=== PATIENT | female | born 1945 | race Caucasian/White ===

== ENCOUNTER → 2016-04-28 | Outpatient (CLI) | payer MEDICARE, BC ==
--- NOTE | 2016-04-28 12:44 | ECHOF ---
Referral Reason:I67.9 occult CVA MEASUREMENTS -------- HEIGHT: 162.6 cm WEIGHT: 74.8 kg BP: RVIDd: 2.8 cm (< 3.3) IVSd: 1.1 cm (0.6 - 1.1) LVIDd: 4.6 cm (3.9 - 5.3) LVPWd: 1.1 cm (0.6 - 1.1) IVSs: 1.1 cm LVIDs: 3.3 cm LVPWs: 1.3 cm LA Diam: 4.1 cm (2.7 - 3.8) LAESV Index (A-L): 24.43 ml/m Ao Diam: 3.2 cm (2.0 - 3.7) AV Cusp: 1.6 cm (1.5 - 2.6) LA Diam: 5.0 cm (2.7 - 3.8) MV EXCURSION: 15.965 mm (> 18.000) MV EF SLOPE: 46 mm/s (70 - 150) EPSS: 0.7 cm MV E Pramod: 0.41 m/s MV DecT: 265 ms MV A Pramod: 0.71 m/s MV E/A Ratio: 0.57 RAP: 5.00 mmHg RVSP: 15.52 mmHg FINDINGS -------- Sinus rhythm. This was a technically good study. LV size, wall thickness and systolic function are normal, with an EF greater than 55%. The right ventricle is normal in size. Normal LA size by volume 22+/-6 ml/m2. The right atrial size is normal. There is mild aortic valve sclerosis. There is no evidence of aortic regurgitation. Mild mitral annular calcification present. Mild mitral regurgitation is present. Mild tricuspid regurgitation present. There is no evidence of pulmonary hypertension. The right ventricular systolic pressure, as measured by Doppler, is 15.52mmHg. There is no pulmonic regurgitation present. The aortic root size is normal. There is no pericardial effusion. CONCLUSIONS -------- 1. LV size, wall thickness and systolic function are normal, with an EF greater than 55%. 2. There is mild aortic valve sclerosis. 3. Mild mitral annular calcification present. 4. Mild mitral regurgitation is present. 5. Mild tricuspid regurgitation present. 6. There is no evidence of pulmonary hypertension. 7. The right ventricular systolic pressure, as measured by Doppler, is 15.52mmHg. WAGON WINDER: Sarah Romo RDCS
== END | disposition home or self-care (01) ==
LOC: RADECHMAIN 11:13
PROVIDERS: ATTEND Family Medicine
DX: I35.0 Nonrheumatic aortic (valve) stenosis (principal); I38 Endocarditis, valve unspecified; I08.1 Rheumatic disorders of both mitral and tricuspid valves
CPT/HCPCS: 93306

== ENCOUNTER → 2016-05-08 | Outpatient (CLI) | payer MEDICARE, BC ==
[2016-05-08 08:13] LABS: Blood Urea Nitrogen 22 mg/dL (7-17); Non-African American GFR(MDRD) >60 (>60 ml/min/1.73 sqM)
--- NOTE | 2016-05-08 10:33 | MR ---
MR brain with and without contrast HISTORY: Brainstem stroke, dysphasia Multiplanar multisequence and postcontrast images obtained through the brain following 15 cc MultiHan ce IV. Correlation to CT brain 09 April 2016 There is no restricted diffusion to suggest subacute ischemia. There is no hemorrhage or hydrocephalu s. There are normal vascular flow voids. The cerebellopontine angles, corpus callosum, pituitary, cer vical medullary junction are stable. Orbits show a symmetric appearance with the exception of probabl e postop change to the right globe. Correlate for surgical history. No abnormal enhancement following contrast administration is evident. Scattered subcortical and periventricular hyperintensities are p resent on inversion recovery and T2-weighted sequences, approximately 10-20 lesions are present. Ther e is mild mucosal disease in the ethmoid air cells, maxillary sinus. IMPRESSION: Nonspecific white matter demyelination may be due to chronic small vessel ischemia. No ac [place] abnormality is evident.
[2016-05-08 21:57] LABS: ANA w/Reflex to Titer NEGATIVE (NEGATIVE)
== END | disposition home or self-care (01) ==
LOC: RADMRIMAIN 07:46
PROVIDERS: ATTEND Psychiatry & Neurology Neurology
DX: G37.9 Demyelinating disease of central nervous system, unspecified (principal); G70.1 Toxic myoneural disorders
CPT/HCPCS: 83519; 82565; 84520; 86431; 83516; 86038; 86225; 70553; A9577

== ENCOUNTER 2016-05-20 08:27 | Day surgery (SDC) | payer MEDICARE, BC ==
[2016-05-14 08:51] VITALS: BMI 30.2
[~2016-05-20 08:27] MED LIST: LACTATED RINGERS 1,000 ML IV SCH; LIDOCAINE 1% 20 ML VIAL (10MG/ML) FOR IV START INTRADERMA PRN
[2016-05-20 08:55] VITALS: RESP 18; TEMP 97.1
[2016-05-20] MEDS ORDERED: LIDOCAINE 1% 20 ML VIAL (10MG/ML) FOR IV START INTRADERMA ONE (09:02)
[2016-05-20] MEDS ORDERED: PROPOFOL 10 MG/ML 20 ML VIAL IV ONE (09:29)
[2016-05-20] MEDS ORDERED: LIDOCAINE 1% INJ 10MG/ML (20 ML MDV) ONE (09:29)
--- NOTE | 2016-05-20 09:39 | P.GSHP ---
History of Present Illness H&P Date: 05/20/16 Chief Complaint: Rectal bleeding Patient is had some recent rectal bleeding with straining of stools. Last colonoscopy 2012. Small polyp was found at that time. Past Medical History Past Medical History: Chest Pain / Angina, GERD/Reflux, Hyperlipidemia, Hypertension Additional Past Medical History / Comment(s): DIVERTICULOSIS, small hiatal hernia, cystocele with coil, PT STATES SHE HAS CHRONIC PAIN R FLANK AREA , INTERMITTENT TINGLING L HAND UP INTO L SHOULDER. History of Any Multi-Drug Resistant Organisms: None Reported Past Surgical History: Bladder Surgery, Cholecystectomy, Orthopedic Surgery, Tonsillectomy, Tubal Ligation Additional Past Surgical History / Comment(s): R eye surgery FOR RETINAL TEAR , R carpal tunnel release, BLADDER COIL BY IN THE OFFICE, EGD/colonoscopy. Past Anesthesia/Blood Transfusion Reactions: Previous Problems w/ Anesthesia Additional Past Anesthesia/Blood Transfusion Reaction / Comment(s): PT STATES THAT WHEN TEETH WERE REMOVED SHE DID HAVE SEVERE N/V BUT THINKS IT WAS GAS THAT WAS USED THAT CAUSED THIS. Past Psychological History: No Psychological Hx Reported Additional Psychological History / Comment(s): PT LIVES WITH SIGNIFICANT OTHER IN A HOME. 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 SHE DRIVES A CAR. Smoking Status: Never smoker Past Alcohol Use History: None Reported Past Drug Use History: None Reported - Past Family History Father Family Medical History: COPD Additional Family Medical History / Comment(s): FATHER IS AND PT UNSURE AT WHAT AGE HE . FATHER HAD ETOH ABUSE. Mother Family Medical History: Cancer, Coronary Artery Disease (CAD), Diabetes Mellitus Additional Family Medical History / Comment(s): MOTHER RECENTLY AT AGE 86YRS from CAD. HER CANCERS WERE OF THE BREAST AND THE BOWEL. Medications and Allergies Home Medications Medication Instructions Recorded Confirmed Type Aspirin 81 mg PO DAILY 10/28/13 05/14/16 History Atenolol [Tenormin] 50 mg PO DAILY 10/28/13 05/14/16 History Esomeprazole Magnesium [NexIUM] 40 mg PO DAILY 10/28/13 05/14/16 History Pravastatin Sodium [Pravachol] 20 mg PO Q48H 10/28/13 05/20/16 History Telmisartan/Hydrochlorothiazid 1 tab PO DAILY 10/28/13 05/14/16 History [Micardis Hct 80-25 mg Tablet] Multivitamins, Thera [Multivitamin] 1 tab PO DAILY 01/13/16 05/14/16 History Naproxen Sodium [Aleve] 220 - 440 mg PO Q6H PRN 01/13/16 05/20/16 History Tolterodine Tartrate [Detrol LA] 4 mg PO DAILY 01/13/16 05/14/16 History Allergies Allergy/AdvReac Type Severity Reaction Status Date / Time Penicillins Allergy Rash/Hives Verified 05/14/16 08:46 Surgical - Exam Vital Signs Temp Pulse Resp BP Pulse Ox 97.1 F L 84 18 112/73 93 L 05/20/16 08:54 05/20/16 08:54 05/20/16 08:54 05/20/16 08:54 05/20/16 08:54 Physical exam: General: Well-developed, well-nourished HEENT: Normocephalic, sclerae nonicteric Abdomen: Nontender, nondistended Extremities: No edema Neuro: Alert and oriented Assessment and Plan (1) Rectal bleeding Narrative/Plan: Will proceed with colonoscopy at this time. Status: Acute
--- NOTE | 2016-05-20 10:03 | P.PCN ---
Date of Procedure: 05/20/16 Procedure(s) Performed: PREOPERATIVE DIAGNOSIS: Rectal bleeding POSTOPERATIVE DIAGNOSIS: Ascending colon polyp 2, internal and external hemorrhoids, diverticulosis PROCEDURE: Colonoscopy with snare polypectomy ANESTHESIA: MAC SURGEON: Sarthak Alcocer M.D. SPECIMENS: Ascending colon polyp 2 ENDOSCOPIC PROCEDURE: The patient was placed on the endoscopy table in the left decubitus position. The Olympus colonoscope was inserted into the anus and passed under direct visualization to the base of the cecum. The appendiceal orifice was visualized. From that point the scope was slowly withdrawn inspecting all surfaces carefully. There were no neoplastic inflammatory or polypoid lesions throughout the cecum. In the ascending colon were 2 polyps that were both removed using the snare technique. The remainder of the transverse descending sigmoid and rectum were normal in appearance. There was mild left-sided diverticulosis. At the anus there were internal and external hemorrhoids noted without any evidence of recent or active bleeding. The patient was taken to the recovery room in stable condition per anesthesia guidelines. RECOMMENDATIONS: Await biopsy results. Increase fiber.
[2016-05-20 10:30] VITALS: BP 129/72; PULSE 60
== END 2016-05-20 10:48 | disposition home or self-care (01) ==
LOC: ORWHC2ENDO 08:27
PROVIDERS: ATTEND Surgery
DX: D12.2 Benign neoplasm of ascending colon (principal); K63.5 Polyp of colon; K57.30 Diverticulosis of large intestine without perforation or abscess without bleeding; K64.8 Other hemorrhoids; K64.4 Residual hemorrhoidal skin tags; K21.9 Gastro-esophageal reflux disease without esophagitis; E78.5 Hyperlipidemia, unspecified; I10 Essential (primary) hypertension; N39.3 Stress incontinence (female) (male); K44.9 Diaphragmatic hernia without obstruction or gangrene; Z79.82 Long term (current) use of aspirin; Z79.899 Other long term (current) drug therapy; Z88.0 Allergy status to penicillin
CPT/HCPCS: 88305; 45385; J2001; J2704; 99153

== ENCOUNTER 2016-08-01 10:50 | Emergency (ER) | payer MEDICARE, BC ==
[2016-08-01] MEDS ORDERED: HYDROcodone/APAP 7.5-325MG 1 EACH TAB PO ONE (11:13)
--- NOTE | 2016-08-01 11:16 | ED ---
Back Pain HPI - General Chief Complaint: Back Pain/Injury Stated Complaint: BACK, RT HIP PAIN Time Seen by Provider: 08/01/16 11:04 Source: patient - History of Present Illness Initial Comments: This 71-year-old white female presents complaining of some right lower back pain. She states that it initially occurred approximately 3 weeks ago but was much worse this morning. She is having difficulties with ambulation this morning. She states that the pain seems to radiate all the way down her right leg and into her foot. She had increased pain with attempts at ambulation. She eventually was able to a blade but it was somewhat difficult. She denies any previous known back problems. She has never had any workup in regards to her back. She denies any bowel or bladder abnormalities. She has not had any incontinence. She denies any frequency or urgency or dysuria. She denies any fevers or chills. There is no known trauma or overuse. No other complaints or modifying factors. She has only used occasional Tylenol over the past several weeks for the pain. - Related Data Home Medications Medication Instructions Recorded Confirmed Atenolol [Tenormin] 50 mg PO DAILY 10/28/13 08/01/16 Esomeprazole Magnesium [NexIUM] 40 mg PO DAILY PRN 10/28/13 08/01/16 Pravastatin Sodium [Pravachol] 20 mg PO Q48H 10/28/13 08/01/16 Telmisartan/Hydrochlorothiazid 1 tab PO DAILY 10/28/13 08/01/16 [Micardis Hct 80-25 mg Tablet] Multivitamins, Thera [Multivitamin 1 tab PO DAILY 01/13/16 08/01/16 (formulary)] Naproxen Sodium [Aleve] 220 - 440 mg PO Q6H PRN 01/13/16 08/01/16 Tolterodine Tartrate [Detrol LA] 4 mg PO DAILY 01/13/16 08/01/16 Allergies Allergy/AdvReac Type Severity Reaction Status Date / Time Penicillins Allergy Rash/Hives Verified 08/01/16 11:38 Review of Systems ROS Statement: Those systems with pertinent positive or pertinent negative responses have been documented in the HPI. ROS Other: All systems not noted in ROS Statement are negative. Past Medical History Past Medical History: GERD/Reflux, Hyperlipidemia, Hypertension Additional Past Medical History / Comment(s): DIVERTICULOSIS, small hiatal hernia, cystocele with coil, PT STATES SHE HAS CHRONIC PAIN R FLANK AREA , INTERMITTENT TINGLING L HAND UP INTO L SHOULDER. History of Any Multi-Drug Resistant Organisms: None Reported Past Surgical History: Bladder Surgery, Cholecystectomy, Orthopedic Surgery, Tonsillectomy, Tubal Ligation Additional Past Surgical History / Comment(s): R eye surgery FOR RETINAL TEAR , R carpal tunnel release, BLADDER COIL BY IN THE OFFICE, EGD/colonoscopy. Past Anesthesia/Blood Transfusion Reactions: Previous Problems w/ Anesthesia Additional Past Anesthesia/Blood Transfusion Reaction / Comment(s): PT STATES THAT WHEN TEETH WERE REMOVED SHE DID HAVE SEVERE N/V BUT THINKS IT WAS GAS THAT WAS USED THAT CAUSED THIS. Past Psychological History: No Psychological Hx Reported Additional Psychological History / Comment(s): PT LIVES WITH SIGNIFICANT OTHER IN A HOME. 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 SHE DRIVES A CAR. Smoking Status: Never smoker Past Alcohol Use History: None Reported Past Drug Use History: None Reported - Past Family History Father Family Medical History: COPD Additional Family Medical History / Comment(s): FATHER IS AND PT UNSURE AT WHAT AGE HE . FATHER HAD ETOH ABUSE. Mother Family Medical History: Cancer, Coronary Artery Disease (CAD), Diabetes Mellitus Additional Family Medical History / Comment(s): MOTHER RECENTLY AT AGE 86YRS from CAD. HER CANCERS WERE OF THE BREAST AND THE BOWEL. General Exam - General Exam Comments Initial Comments: GENERAL: The patient is well nourished and well hydrated. VITAL SIGNS: Heart rate, blood pressure, respiratory rate reviewed as recorded in nurse's notes. EYES: Pupils are round and reactive. Extraocular movements are intact. No conjunctival / lid redness or swelling. ENT: No external evidence of injury, swelling, or ecchymosis. Airway is patent. Throat is clear. NECK: Nontender. No swelling or evidence of injury. No subcutaneous emphysema. Trachea is midline. No thyroid mass. HEART: Regular rate and rhythm. Good peripheral pulses. LUNGS/CHEST: Breath sounds clear and equal bilaterally. No rales, rhonchi, or wheezes. No ecchymosis, subcutaneous emphysema, or tenderness. ABDOMEN: Abdomen soft without tenderness. No palpable masses or organomegaly. No peritoneal signs. No abdominal wall swelling or ecchymosis. EXTREMITIES: Normal muscle tone and function. No thoracic tenderness. There is tenderness present in the right paralumbar musculature. There is no tenderness directly over the vertebral 8. There is some tenderness present into the right gluteal region. There is some minimal tenderness present to the lateral aspect of the right calf. NEUROLOGIC: Sensation is grossly intact. Cranial nerve exam reveals face is symmetrical, tongue is midline, speech is clear. SKIN: No abrasions or ecchymosis is noted. No induration or masses noted. PSYCHIATRIC: Alert and oriented. Appropriate behavior and judgment. Course Vital Signs 08/01/16 08/01/16 10:52 11:57 Temperature 97.1 F L Pulse Rate 54 L 51 L Respiratory 17 16 Rate Blood Pressure 143/83 124/73 O2 Sat by Pulse 97 96 Oximetry Medical Decision Making - Medical Decision Making The patient was seen and examined. All diagnostics were reviewed. She received an [place] for pain. An x-ray was taken of her lumbar spine as well as AP pelvis. The x-rays show evidence of degenerative disc disease in the lower lumbar spine as well as some arthritic changes and osteopenia. She is feeling improved on recheck. Is felt as though she would benefit from an MRI scan of her lumbar spine on an outpatient basis. She will be given a dose of prednisone in the ER as well. She is to have close follow-up with her primary doctor and may even need further referral to a back specialist if symptoms persist. She does have a walker at home to utilize if necessary. Disposition Clinical Impression: Low back pain, Right lumbar radiculopathy, Degenerative disc disease, lumbar, Osteopenia Disposition: HOME SELF-CARE Condition: Good Instructions: Acute Low Back Pain (ED), Lumbar Radiculopathy (ED) Referrals: Chacorta Romero MD [Primary Care Provider] - 08/03/16 Time of Disposition: 12:52
--- NOTE | 2016-08-01 11:42 | XR ---
AP pelvis HISTORY: Low back pain going into right hip Correlation to left hip 17 June 2015 Multiple phleboliths are present within the pelvis. Bone island suspected within the right hemipelvis . Degenerative disc changes suspected at the lower lumbar spine. There is likely a pessary in place. Hip show no significant arthropathy, bone mineralization is maintained. IMPRESSION: Degenerative disc disease lower lumbar spine.
--- NOTE | 2016-08-01 11:44 | XR ---
Lumbar spine HISTORY: Low back pain radiating to right hip 3 views of the lumbar spine No comparisons There is minimal anterolisthesis grade 1 L4-5. Loss of disc height at L5-S1, L4-5. Sclerosis present in the posterior elements. Bone mineralization is mildly reduced. There is multilevel spondylosis. Va scular calcifications within the aorta are noted, surgical clips are present in the right upper quadr ant. Lumbar vertebral bodies show preserved height. IMPRESSION: Degenerative disc disease and facet arthropathy. Osteopenia.
[2016-08-01] MEDS ORDERED: predniSONE 20 MG TAB PO STA (12:52)
--- NOTE | 2016-08-01 12:54 | ED ---
Disposition Clinical Impression: Low back pain, Right lumbar radiculopathy, Degenerative disc disease, lumbar, Osteopenia Disposition: HOME SELF-CARE Condition: Good Instructions: Acute Low Back Pain (ED), Lumbar Radiculopathy (ED) Prescriptions: Hydrocodone/Acetaminophen [[place] 5-325] 1 - 2 each PO Q4HR PRN #20 tab PRN Reason: Pain predniSONE 20 mg PO BID #10 tab Referrals: Chacorta Romero MD [Primary Care Provider] - 08/03/16
[2016-08-01 13:02] VITALS: BP 107/69; PULSE 49; RESP 18; TEMP 98
== END 2016-08-01 13:03 | disposition home or self-care (01) ==
LOC: EC 10:50
DX: M51.16 Intervertebral disc disorders with radiculopathy, lumbar region (principal); M85.80 Other specified disorders of bone density and structure, unspecified site; I10 Essential (primary) hypertension; E78.5 Hyperlipidemia, unspecified; Z79.899 Other long term (current) drug therapy; Z88.0 Allergy status to penicillin
CPT/HCPCS: 99283; 72100; 72170; J7512

== ENCOUNTER → 2016-08-14 | Outpatient (CLI) | payer MEDICARE, BC ==
--- NOTE | 2016-08-14 13:13 | CT ---
EXAMINATION TYPE: CT chest wo con DATE OF EXAM: 08/14/2016 12:10 PM COMPARISON: 07/29/2015 HISTORY: 71 year-old female follow-up up to aneurysm TECHNIQUE: Contiguous axial scanning of the chest without IV contrast. Coronal and sagittal reconstru ctions performed. CT DLP: 210.8 mGycm Automated exposure control for dose reduction was used. FINDINGS: The heart is normal size without pericardial effusion. Ascending aorta measures up to 3.8 cm versus 3.7 cm on 07/29/2015 as remeasured by the current radiolo gist. This is not significantly changed. Mild Disregard calcifications with conventional arch vessel branching anatomy. The upper descending thoracic aorta is borderline aneurysmal measuring 3.1 cm versus 2.9 cm on 016. There is borderline to mildly enlarged caliber to the main right and left pulmonary arteries at 2.5 a nd 2.6 cm, respectively, which may represent underlying pulmonary arterial hypertension. Scattered nonenlarged mediastinal lymph nodes. No thoracic lymphadenopathy by CT size criteria. Evaluation of the lungs show some strandy atelectasis at the inferior lingula and superior lingula. N o consolidation or pleural effusion. Redemonstrated moderate-sized hiatal hernia. Visualized upper abdomen shows no gross abnormality by n oncontrast CT. Bones: Degenerative disc disease lower thoracic spine. IMPRESSION: 1. ECTATIC ASCENDING AORTA MEASURING 3.8 CM VERSUS 3.7 CM ON 07/29/2015 REMEASURED BY THE CURRENT R ADIOLOGIST. 2. 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 3. POSSIBLE UNDERLYING PULMONARY ARTERIAL HYPERTENSION. 4. REDEMONSTRATED MODERATE-SIZED HIATAL HERNIA.
== END ==
LOC: RADCTMAIN 11:37
PROVIDERS: ATTEND Thoracic Surgery (Cardiothoracic Vascular Surgery)
DX: I71.2 Thoracic aortic aneurysm, without rupture (principal)
CPT/HCPCS: 71250

== ENCOUNTER 2016-08-22 17:35 | Emergency (ER) | payer MEDICARE, BC ==
[2016-08-22 17:41] VITALS: BP 149/86; PULSE 74; RESP 20; TEMP 98.1
[2016-08-22] MEDS ORDERED: KETOROLAC 60 MG/2 ML VIAL IM STA (18:37)
[2016-08-22] MEDS ORDERED: methylPREDNISolone SOD SUCCI 125 MG/2 ML VIAL IM STA (18:37)
--- NOTE | 2016-08-22 18:37 | ED ---
Back Pain HPI - General Chief Complaint: Back Pain/Injury Stated Complaint: back and leg pain Time Seen by Provider: 08/22/16 17:57 Source: patient, RN notes reviewed Limitations: no limitations - History of Present Illness Initial Comments: 71-year-old female presents emergency room chief complaint of continued right leg pain and radiation of her back pain. Patient states she's had this for weeks. She states she's been to her family care doctor and they're currently waiting for her MRI. Patient states been taking Tylenol for the pain that has helped that she is sick of taking Tylenol and she wants something else. She does not want narcotics however. She states that she tried ice it to make it feel better she tries to move to make it feel better and is just constant. Patient states actually gets been for weeks. Patient states that she does not believe that she is tried steroids. However. There is was no falls traumas or injuries. Patient states that the same pain that she has had and she wanted to go away. Patient denies any recent fever, chills, shortness of breath, chest pain, back pain, abdominal pain, nausea vomiting, numbness or tingling, dysuria or hematuria, constipation or diarrhea, headaches or visual changes, or any other current symptoms. - Related Data Home Medications Medication Instructions Recorded Confirmed Atenolol [Tenormin] 50 mg PO DAILY 10/28/13 08/01/16 Esomeprazole Magnesium [NexIUM] 40 mg PO DAILY PRN 10/28/13 08/01/16 Pravastatin Sodium [Pravachol] 20 mg PO Q48H 10/28/13 08/01/16 Telmisartan/Hydrochlorothiazid 1 tab PO DAILY 10/28/13 08/01/16 [Micardis Hct 80-25 mg Tablet] Multivitamins, Thera [Multivitamin 1 tab PO DAILY 01/13/16 08/01/16 (formulary)] Naproxen Sodium [Aleve] 220 - 440 mg PO Q6H PRN 01/13/16 08/01/16 Tolterodine Tartrate [Detrol LA] 4 mg PO DAILY 01/13/16 08/01/16 Previous Rx's Medication Instructions Recorded Hydrocodone/Acetaminophen [[place] 1 - 2 each PO Q4HR PRN #20 tab 08/01/16 5-325] predniSONE 20 mg PO BID #10 tab 08/01/16 methylPREDNISolone Dose Pack 4 mg PO DIRECTED #21 package 08/22/16 [Medrol Dose Pack] Allergies Allergy/AdvReac Type Severity Reaction Status Date / Time Penicillins Allergy Rash/Hives Verified 08/22/16 17:41 Review of Systems ROS Statement: Those systems with pertinent positive or pertinent negative responses have been documented in the HPI. ROS Other: All systems not noted in ROS Statement are negative. Past Medical History Past Medical History: GERD/Reflux, Hyperlipidemia, Hypertension Additional Past Medical History / Comment(s): DIVERTICULOSIS, small hiatal hernia, cystocele with coil, PT STATES SHE HAS CHRONIC PAIN R FLANK AREA , INTERMITTENT TINGLING L HAND UP INTO L SHOULDER. History of Any Multi-Drug Resistant Organisms: None Reported Past Surgical History: Bladder Surgery, Cholecystectomy, Orthopedic Surgery, Tonsillectomy, Tubal Ligation Additional Past Surgical History / Comment(s): R eye surgery FOR RETINAL TEAR , R carpal tunnel release, BLADDER COIL BY IN THE OFFICE, EGD/colonoscopy. Past Anesthesia/Blood Transfusion Reactions: Previous Problems w/ Anesthesia Additional Past Anesthesia/Blood Transfusion Reaction / Comment(s): PT STATES THAT WHEN TEETH WERE REMOVED SHE DID HAVE SEVERE N/V BUT THINKS IT WAS GAS THAT WAS USED THAT CAUSED THIS. Past Psychological History: No Psychological Hx Reported Additional Psychological History / Comment(s): PT LIVES WITH SIGNIFICANT OTHER IN A HOME. 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 Smoking Status: Never smoker Past Alcohol Use History: None Reported Past Drug Use History: None Reported - Past Family History Father Family Medical History: COPD Additional Family Medical History / Comment(s): FATHER IS AND PT UNSURE AT WHAT AGE HE . FATHER HAD ETOH ABUSE. Mother Family Medical History: Cancer, Coronary Artery Disease (CAD), Diabetes Mellitus Additional Family Medical History / Comment(s): MOTHER RECENTLY AT AGE 86YRS from CAD. HER CANCERS WERE OF THE BREAST AND THE BOWEL. General Exam Limitations: no limitations General appearance: alert, in no apparent distress Head exam: Present: atraumatic, normocephalic, normal inspection ENT exam: Present: normal exam, mucous membranes moist Neck exam: Present: normal inspection. Absent: tenderness, meningismus, lymphadenopathy Respiratory exam: Present: normal lung sounds bilaterally. Absent: respiratory distress, wheezes, rales, rhonchi, stridor Cardiovascular Exam: Present: regular rate, normal rhythm, normal heart sounds. Absent: systolic murmur, diastolic murmur, rubs, gallop, clicks GI/Abdominal exam: Present: soft, normal bowel sounds. Absent: distended, tenderness, guarding, rebound, rigid Extremities exam: Present: normal inspection, full ROM, normal capillary refill. Absent: tenderness, pedal edema, joint swelling, calf tenderness Back exam: Present: normal inspection, full ROM. Absent: CVA tenderness (R), CVA tenderness (L), muscle spasm, paraspinal tenderness, vertebral tenderness, rash noted Expanded Back exam: Sciatic Notch Tenderness: Right, Positive Straight Leg Raise: Right Neurological exam: Present: alert, oriented X3, CN II-XII intact. Absent: motor sensory deficit Psychiatric exam: Present: normal affect, normal mood Skin exam: Present: warm, dry, intact, normal color. Absent: rash Course Vital Signs 08/22/16 17:39 Temperature 98.1 F Pulse Rate 74 Respiratory 20 Rate Blood Pressure 149/86 O2 Sat by Pulse 96 Oximetry Medical Decision Making - Medical Decision Making 71-year-old female presents for appears to be sciatica down the right leg. At this time we discussed we will put her on a Medrol Dosepak. We discussed follow -up for testing which is Wednesday. We discussed return parameters QUESTIONS. She stated that she understood and she is agreeable with the plan. This time she'll be discharged home. Disposition Clinical Impression: Degenerative disc disease, lumbar, Right lumbar radiculopathy, Sciatica, right side Disposition: HOME SELF-CARE Condition: Stable Instructions: Chronic Back Pain (ED), Sciatica (ED) Additional Instructions: Please use medication as discussed. Please follow up with family doctor if symptoms have not improved over the next two days. Please return to the emergency room if your symptoms increase or worsen or for any other concerns. Prescriptions: methylPREDNISolone Dose Pack [Medrol Dose Pack] 4 mg PO DIRECTED #21 package Referrals: Chacorta Romero MD [Primary Care Provider] - 1-2 days Time of Disposition: 18:36
== END 2016-08-22 19:16 | disposition home or self-care (01) ==
LOC: EC 17:35
DX: M51.16 Intervertebral disc disorders with radiculopathy, lumbar region (principal); E78.5 Hyperlipidemia, unspecified; I10 Essential (primary) hypertension; Z79.899 Other long term (current) drug therapy; Z88.0 Allergy status to penicillin
CPT/HCPCS: 99283; 96372 ×2; J2930; J1885

== ENCOUNTER → 2016-09-07 | Outpatient (CLI) | payer MEDICARE, BC ==
--- NOTE | 2016-09-08 12:51 | MM ---
Reason for exam: screening (asymptomatic). Last mammogram was performed 1 year ago. History: Patient is postmenopausal. Family history of breast cancer in aunt and breast cancer in cousin. Core biopsy of the right breast, 2007. Physical Findings: A clinical breast exam by your physician is recommended on an annual basis and results should be correlated with mammographic findings. MG 3D Screening Mammo W/Cad Bilateral CC and MLO view(s) were taken. Prior study comparison: September 06, 2015, bilateral MG 3d screening mammo w/cad. September 07, 2014, mammogram, performed at [facility]. August 11, 2013, mammogram, performed at [facility]. There are scattered fibroglandular densities. No significant changes when compared with prior studies. ASSESSMENT: Benign, BI-RAD 2 RECOMMENDATION: Routine screening mammogram of both breasts in 1 year.
== END ==
LOC: RADMAMWWP 09:37
PROVIDERS: ATTEND Obstetrics & Gynecology
DX: Z12.31 Encounter for screening mammogram for malignant neoplasm of breast (principal); Z80.3 Family history of malignant neoplasm of breast
CPT/HCPCS: 77063; G0202

== ENCOUNTER → 2016-09-07 | Outpatient (CLI) | payer MEDICARE, BC ==
--- NOTE | 2016-09-07 23:08 | MR ---
EXAMINATION TYPE: MR lumbar spine wo con DATE OF EXAM: 09/07/2016 7:57 PM COMPARISON: NONE HISTORY: Low back pain x6 months, cortisone injections 2-3 weeks ago TECHNIQUE: T1 and T2 axial and sagittal images of the lumbar spine are submitted. FINDINGS: There is no abnormal signal seen within the visualized spinal cord or paraspinal soft tissu es. Nonspecific subcentimeter nodularity to the right adrenal gland. Adenoma favored. Subcentimeter s imple right renal cyst noted. At T12-L1 no disc herniation or canal stenosis. No foraminal encroachment. At L1-2 there is no disc herniation or canal stenosis. No foraminal encroachment. Mild hypertrophy of the facets. At L2-3 there is no disc herniation or canal stenosis. No foraminal encroachment. Mild hypertrophic c hange of the facets. At L3-4 there is mild hypertrophic change of the facets and ligamentum flavum. No disc herniation. No Canal stenosis. Very mild circumferential disc bulging. No foraminal encroachment. At L4-5 there is grade 1 anterolisthesis with severe facet arthropathy. There is a focal central and right paracentral disc herniation with moderate effacement of thecal sac. Moderate bilateral foramina l encroachment. AP canal stenosis. At L5-S1 there is facet arthropathy. No foraminal encroachment or disc herniation. No Canal stenosis. IMPRESSION: 1. At L4-5 there is grade 1 anterolisthesis with severe facet arthropathy. There is a focal central a nd right paracentral disc herniation with moderate effacement of thecal sac. Moderate bilateral yola inal encroachment. AP canal stenosis. 2. Multilevel facet arthropathy. 3. Small right adrenal nodule indeterminate. Adrenal adenoma favored.
== END | disposition home or self-care (01) ==
LOC: RADMRIMAIN 19:17
PROVIDERS: ATTEND Nurse Practitioner Women's Health
DX: M48.06 Spinal stenosis, lumbar region (principal); M51.26 Other intervertebral disc displacement, lumbar region; M43.16 Spondylolisthesis, lumbar region; M46.96 Unspecified inflammatory spondylopathy, lumbar region
CPT/HCPCS: 72148

== ENCOUNTER → 2016-12-31 | Outpatient (CLI) | payer MEDICARE, BC ==
[2016-12-31 08:19] LABS: Bilirubin, Delta 0.1 mg/dL (0.0-0.2); Total Bilirubin 0.7 mg/dL (0.2-1.3); Total Protein 6.6 g/dL (6.3-8.2)
== END | disposition home or self-care (01) ==
LOC: LABWHC1 07:22
PROVIDERS: ATTEND Family Medicine
DX: E78.00 Pure hypercholesterolemia, unspecified (principal); I10 Essential (primary) hypertension
CPT/HCPCS: 36415; 80061; 80076

== ENCOUNTER → 2017-01-08 | Outpatient (CLI) | payer MEDICARE, BC ==
--- NOTE | 2017-01-08 16:57 | BD ---
EXAMINATION TYPE: MG DEXA axial skeleton. 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 History of Fracture in Adulthood: NO Secondary Osteoporosis: NO 1. Type 1 Diabetes: NO 2. Hyperthyroidism: NO 3. Menopause before 45: NO 4. Malnutrition: NO 5. Chronic liver disease: NO Rheumatoid Arthritis: NO Current Tobacco Use: NO RISK FACTORS HISTORY OF: Family History of Osteoporosis: NONE KNOWN Active: YES Diet low in dairy products/other sources of calcium: NO Postmenopausal woman: 51 YRS Hyperparathyroidism: NO Adrenal Insufficiency: NO MEDICATIONS: Additional Medications: BP MEDS, NEXIUM, STATINS FOR CHOLESTEROL, MULTIVITAMIN WITH CALCIUM AND D, D ETROL, LOW DOSE ASPIRIN Additional History: HYPERTENSION, HIGH CHOLESTEROL EXAM MEASUREMENTS: Bone mineral densitometry was performed using the [employer] System. Bone mineral density as measured about the Lumbar spine is: ----- L1-L4(G/cm2): 1.076 T Score Values are as follows: ----- L1: -1.5 ----- L2: -1.6 ----- L3: -0.7 ----- L4: -0.1 ----- L1-L4: -0.9 Bone mineral density THIS IS HER FIRST BONE DENSITY SCAN AT [facility] Bone mineral density about the R hip (g/cm2): 0.898 Bone mineral density about the L hip (g/cm2): 0.933 T Score values are as follows: -----R Neck: -1.3 -----L Neck: -0.8 -----R Total: -0.9 -----L Total: -0.6 Bone mineral density FIRST BONE DENSITY HERE AT [facility] FRAX%'S: THERE IS A 9.7% CHANCE OF A MAJOR OSTEOPOROTIC FX AND A 1.3% OF HIP FX.....PROBABILITY OF FX IN 10 YRS TIME IMPRESSION: Osteopenia (T Score between -2.5 and -1 as noted by T score values There is slightly increased risk of fracture and the patient may be considered for treatment. Re-Screen 2-5 years. FOR HER RT HIP AND LUMBAR SPINE. NOTE: T-SCORE=SD OF THE YOUNG ADULT MEAN.
== END | disposition home or self-care (01) ==
LOC: RADBDWWP 07:28
PROVIDERS: ATTEND Family Medicine
DX: M85.89 Other specified disorders of bone density and structure, multiple sites (principal); Z79.82 Long term (current) use of aspirin
CPT/HCPCS: 77080

== ENCOUNTER 2017-05-25 06:48 | Day surgery (SDC) | payer MEDICARE, BC ==
[2017-05-17 14:59] VITALS: BMI 25.1
[~2017-05-25 06:48] MED LIST changes: +DEXAMETHASONE SOD PHOSPHATE 10 MG/ML 1 ML VIAL IV ONE; +HEPARIN SODIUM,PORCINE 5,000 UNIT/ML 1 ML VIAL SQ ONE; +ONDANSETRON 4 MG/2 ML VIAL IVP ONE; +ceFAZolin IN SWFI 2 GM/20 ML SYRINGE IVP ONE
[2017-05-25] MEDS ORDERED: LACTATED RINGERS 1,000 ML IV ONE ×2 (07:27→09:41)
--- NOTE | 2017-05-25 07:56 | P.GSHP ---
History of Present Illness H&P Date: 05/25/17 Chief Complaint: left inguinal hernia this a 71-year-old female for from Dr. Romero. Patient developed a left inguinal hernia. She presents today for laparoscopic robotic system repair. Past Medical History Past Medical History: GERD/Reflux, Hyperlipidemia, Hypertension Additional Past Medical History / Comment(s): cystocele with coil, hx migraines , hx ulcer, urinary leakage History of Any Multi-Drug Resistant Organisms: None Reported Past Surgical History: Bladder Surgery, Cholecystectomy, Orthopedic Surgery, Tonsillectomy, Tubal Ligation Additional Past Surgical History / Comment(s): R eye surgery FOR RETINAL TEAR , Rt carpal tunnel release, BLADDER COIL Past Anesthesia/Blood Transfusion Reactions: Motion Sickness, Postoperative Nausea & Vomiting (PONV) Additional Past Anesthesia/Blood Transfusion Reaction / Comment(s): . Smoking Status: Never smoker - Past Family History Brother(s) Family Medical History: Cancer Father Family Medical History: COPD Additional Family Medical History / Comment(s): FATHER IS AND PT UNSURE AT WHAT AGE HE . FATHER HAD ETOH ABUSE. Mother Family Medical History: Cancer Additional Family Medical History / Comment(s): MOTHER RECENTLY AT AGE 86YRS from CAD. HER CANCERS WERE OF THE BREAST AND THE BOWEL. Medications and Allergies Home Medications Medication Instructions Recorded Confirmed Type Atenolol [Tenormin] 50 mg PO DAILY 10/28/13 05/17/17 History Esomeprazole Magnesium [NexIUM] 40 mg PO DAILY 10/28/13 05/17/17 History Pravastatin Sodium [Pravachol] 20 mg PO Q48H 10/28/13 05/17/17 History Telmisartan/Hydrochlorothiazid 1 tab PO DAILY 10/28/13 05/17/17 History [Micardis Hct 80-25 mg Tablet] Multivitamins, Thera [Multivitamin 1 tab PO DAILY 01/13/16 05/17/17 History (formulary)] Naproxen Sodium [Aleve] 220 - 440 mg PO Q6H PRN 01/13/16 05/17/17 History Tolterodine Tartrate [Detrol LA] 4 mg PO DAILY 01/13/16 05/17/17 History Aspirin [Adult Low Dose Aspirin EC] 81 mg PO DAILY 05/17/17 05/17/17 History Allergies Allergy/AdvReac Type Severity Reaction Status Date / Time Penicillins Allergy Rash/Hives Verified 05/17/17 14:45 Surgical - Exam Vital Signs Temp Pulse Resp BP Pulse Ox 98.1 F 54 L 18 164/81 96 05/25/17 07:09 05/25/17 07:09 05/25/17 07:09 05/25/17 07:09 05/25/17 07:09 - General well developed, no distress - Eyes PERRL - ENT normal pinna - Neck no masses - Respiratory normal expansion - Cardiovascular Rhythm: regular - Abdomen Abdomen: soft, non tender Hernia: inguinal (left, reducible) Assessment and Plan Plan: left inguinal hernia. We'll perform laparoscopic robotic system repair.
[2017-05-25] MEDS ORDERED: GLYCOPYRROLATE 0.2 MG/ML 2 ML VIAL ONE (07:59)
[2017-05-25] MEDS ORDERED: fentaNYL (PF) 50 MCG/ML 2 ML AMP ONE (07:59)
[2017-05-25] MEDS ORDERED: ROCURONIUM BROMIDE 10 MG/ML 10 ML VIAL IV ONE (07:59)
[2017-05-25] MEDS ORDERED: SUCCINYLCHOLINE CHLORIDE 100 MG/5 ML SYR IV ONE (07:59)
[2017-05-25] MEDS ORDERED: ePHEDrine SULFATE/0.9% NACL/PF 50 MG/5 ML SYRINGE IV ONE (07:59)
[2017-05-25] MEDS ORDERED: MIDAZOLAM 2 MG/2 ML VIAL ONE (07:59)
[2017-05-25] MEDS ORDERED: PROPOFOL 10 MG/ML 20 ML VIAL IV ONE (07:59)
[2017-05-25] MEDS ORDERED: LIDOCAINE 1% INJ 10MG/ML (20 ML MDV) ONE (07:59)
[2017-05-25] MEDS ORDERED: NEOSTIGMINE 1 MG/ML 10 ML VIAL ONE (07:59)
[2017-05-25] MEDS ORDERED: BUPIVACAINE (PF) 0.25% 30 ML VIAL SQ ONE ×2 (08:18→08:22)
[2017-05-25 09:09] VITALS: TEMP 97.2
[2017-05-25] MEDS: HYDROmorphone 0.5 MG/0.5 ML SYRINGE IVP PRN ×2 (09:14→09:19)
[2017-05-25 09:18] VITALS: RESP 16
[2017-05-25] MEDS ORDERED: ONDANSETRON 4 MG/2 ML VIAL IVP ONE (09:27)
[2017-05-25] MEDS ORDERED: METOCLOPRAMIDE 5 MG/ML 2 ML VIAL IVP ONE (11:29)
[2017-05-25 11:48] VITALS: PULSE 51
[2017-05-25] MEDS ORDERED: HYDROcodone/APAP 7.5-325MG 1 EACH TAB PO ONE (12:19)
[2017-05-25 12:24] VITALS: BP 135/81
--- NOTE | 2017-05-25 13:31 | P.OP ---
Date of Procedure: 05/25/17 Preoperative Diagnosis: Left inguinal hernia Postoperative Diagnosis: Left inguinal hernia Umbilical hernia Procedure(s) Performed: Laparoscopic robotic-assisted repair of left inguinal hernia and umbilical hernia. Anesthesia: MAC Surgeon: Ac Meng Estimated Blood Loss (ml): 5 Pathology: none sent Condition: stable Disposition: PACU Description of Procedure: he patient's placed on the operating table in the supine position. The patient received general anesthesia. The patient's abdomen was prepped and draped in usual sterile fashion. The skin was anesthetized 1% local Xylocaine at the incision sites. Using an 11 blade a skin incision was made at the umbilicus. The fascia was grasped with a Nathan and then the peritoneal cavity was entered with the Veress needle. Position of the Veress needle was confirmed with a positive drop test. After adequate insufflation a 5 mm trocar was placed into the peritoneal cavity. There is noted to be an umbilical hernia. The Laparoscope was placed the peritoneal cavity. And a robotic 8 mm trocar was placed in the right lateral position and then another 8 mm robotic trochars placed in the left lateral position. The original 5 mm trocar was exchanged for a 12 mm trocar. The patient was placed in reverse Trendelenburg and then the patient was docked to the robot. Next the peritoneum over top of the hernia was incised and then using blunt and sharp dissection and electrocautery the hernia sac was dissected free from the floor of the inguinal canal. The hernia sac was completely reduced into the peritoneal cavity. And then using the [employer] attendant mesh the hernia was repaired. The peritoneum was then sutured with 20V lock suture. The patient was then undocked the robot. The needle was withdrawn from the peritoneal cavity. The umbilical trocar hernia site was closed with 0 Ethibond suture. The skin was closed interrupted 3-0 Monocryl suture. Dermabond dressing was applied. Patient was sent to recovery in stable condition.
== END 2017-05-25 12:58 | disposition home or self-care (01) ==
LOC: OR 06:48
PROVIDERS: ATTEND Surgery
DX: K40.90 Unilateral inguinal hernia, without obstruction or gangrene, not specified as recurrent (principal); K42.9 Umbilical hernia without obstruction or gangrene; I10 Essential (primary) hypertension; E78.5 Hyperlipidemia, unspecified; R00.1 Bradycardia, unspecified; K21.9 Gastro-esophageal reflux disease without esophagitis; E78.00 Pure hypercholesterolemia, unspecified; Z79.82 Long term (current) use of aspirin; Z79.899 Other long term (current) drug therapy; Z90.49 Acquired absence of other specified parts of digestive tract; Z88.0 Allergy status to penicillin; Z86.69 Personal history of other diseases of the nervous system and sense organs
CPT/HCPCS: 49650; 49652; C1781; J2250; J1100; J2710; J2765; J2405; J2001; J3010; J0330; J2704; J1170; J0690

== ENCOUNTER 2017-09-14 19:44 | Observation (INO) | payer MEDICARE, BC ==
[2017-09-14] MEDS ORDERED: SODIUM CHLORIDE 0.9% 1,000 ML IV STA ×2 (19:55→20:54)
[2017-09-14] MEDS ORDERED: NITROGLYCERIN SL TABS 0.4 MG TAB SUBLINGUAL STA (19:56)
--- NOTE | 2017-09-14 20:12 | ED ---
Nausea/Vomiting/Diarrhea HPI - General Chief complaint: Nausea/Vomiting/Diarrhea Stated complaint: nausea/vomiting Time Seen by Provider: 09/14/17 19:44 Source: patient, RN notes reviewed Mode of arrival: EMS Limitations: no limitations - History of Present Illness Initial comments: This is a 72-year-old female who presents by EMS with complaints of nausea vomiting and diarrhea started around 4 PM this afternoon. She also states she' s had some anterior chest heaviness 3-4/10 severity she states the nausea is improved somewhat and the chest heaviness is improved she states is somewhat dull now. No prior history of IA or known coronary artery disease no known exposure to bad food or to other people with similar symptoms. She has any fevers chills sweats no cough or phlegm production no other modifying factors at this time she does relate that she's had her gallbladder taken out. MD complaint: nausea, vomiting, diarrhea, other - Related Data Home Medications Medication Instructions Recorded Confirmed Atenolol [Tenormin] 25 mg PO DAILY 10/28/13 09/14/17 Pravastatin Sodium [Pravachol] 20 mg PO Q48H 10/28/13 09/14/17 Telmisartan/Hydrochlorothiazid 1 tab PO DAILY 10/28/13 09/14/17 [Micardis Hct 80-25 mg Tablet] Multivitamins, Thera [Multivitamin 1 tab PO DAILY 01/13/16 09/14/17 (formulary)] Tolterodine Tartrate [Detrol LA] 4 mg PO DAILY 01/13/16 09/14/17 Aspirin [Adult Low Dose Aspirin EC] 81 mg PO DAILY 05/17/17 09/14/17 Esomeprazole Magnesium [NexIUM 20 mg PO DAILY 09/14/17 09/14/17 24Hr] Allergies Allergy/AdvReac Type Severity Reaction Status Date / Time Penicillins Allergy Rash/Hives Verified 09/14/17 20:07 Review of Systems ROS Statement: Those systems with pertinent positive or pertinent negative responses have been documented in the HPI. ROS Other: All systems not noted in ROS Statement are negative. Past Medical History Past Medical History: GERD/Reflux, Hyperlipidemia, Hypertension Additional Past Medical History / Comment(s): cystocele with coil, hx migraines , hx ulcer, urinary leakage History of Any Multi-Drug Resistant Organisms: None Reported Past Surgical History: Bladder Surgery, Cholecystectomy, Orthopedic Surgery, Tonsillectomy, Tubal Ligation Additional Past Surgical History / Comment(s): R eye surgery FOR RETINAL TEAR , Rt carpal tunnel release, BLADDER COIL Past Anesthesia/Blood Transfusion Reactions: Motion Sickness, Postoperative Nausea & Vomiting (PONV) Additional Past Anesthesia/Blood Transfusion Reaction / Comment(s): . Past Psychological History: No Psychological Hx Reported Smoking Status: Never smoker - Past Family History Brother(s) Family Medical History: Cancer Father Family Medical History: COPD Additional Family Medical History / Comment(s): FATHER IS AND PT UNSURE AT WHAT AGE HE . FATHER HAD ETOH ABUSE. Mother Family Medical History: Cancer Additional Family Medical History / Comment(s): MOTHER RECENTLY AT AGE 86YRS from CAD. HER CANCERS WERE OF THE BREAST AND THE BOWEL. General Exam - General Exam Comments Initial Comments: This is a well-developed well-nourished awake alert oriented 3 female Limitations: no limitations General appearance: alert, anxious Head exam: Present: atraumatic, normocephalic, normal inspection Eye exam: Present: normal appearance, PERRL, EOMI. Absent: scleral icterus, conjunctival injection, periorbital swelling ENT exam: Present: mucous membranes dry Neck exam: Present: normal inspection. Absent: tenderness, meningismus, lymphadenopathy Respiratory exam: Present: normal lung sounds bilaterally. Absent: respiratory distress, wheezes, rales, rhonchi, stridor Cardiovascular Exam: Present: regular rate, normal rhythm, normal heart sounds. Absent: systolic murmur, diastolic murmur, rubs, gallop, clicks GI/Abdominal exam: Present: soft, normal bowel sounds. Absent: distended, tenderness, guarding, rebound, rigid Extremities exam: Present: normal inspection, full ROM, normal capillary refill. Absent: tenderness, pedal edema, joint swelling, calf tenderness Back exam: Present: normal inspection Neurological exam: Present: alert, oriented X3, CN II-XII intact Psychiatric exam: Present: normal affect, normal mood Skin exam: Present: warm, dry, intact, normal color. Absent: rash Course Vital Signs 09/14/17 09/14/17 09/14/17 19:48 20:52 21:13 Temperature 97.9 F Pulse Rate 63 57 L 61 Respiratory 20 20 20 Rate Blood Pressure 130/58 116/55 106/56 O2 Sat by Pulse 96 96 95 Oximetry - Reevaluation(s) Reevaluation #1: 09/14/17 20:11 Sec and attempted EKG interpretation the rate was 63. Interval 188 QRS 98 QT cyst QTc 420/431 minimal voltage criteria for LVH nonspecific ST configuration this is compared with an EKG dated 02/12/16 Reevaluation #2: 09/14/17 21:06 Reevaluation patient reveals she did get improvement in the chest pain has resolved after nitroglycerin. She did have an episode of passing out or X-RAY. SHE WAS GIVEN FLUID CHALLENGE WITH SOME IMPROVEMENT. Medical Decision Making - Medical Decision Making I did reevaluate the patient did discuss [employer] her and her family members. Patient is currently pain-free still some nausea. She will be admitted with consultation to cardiology I did discuss case with Dr. Lopez - Lab Data Result diagrams: 09/14/17 20:04 09/14/17 20:04 Lab Results 09/14/17 09/14/17 09/14/17 Range/Units 20:04 20:04 20:04 WBC 12.7 H (3.8-10.6) k/uL RBC 4.67 (3.80-5.40) m/uL Hgb 13.5 (11.4-16.0) gm/dL Hct 39.2 (34.0-46.0) % MCV 84.0 (80.0-100.0) fL MCH 28.9 (25.0-35.0) pg MCHC 34.4 (31.0-37.0) g/dL RDW 13.3 (11.5-15.5) % Plt Count 259 (150-450) k/uL Neutrophils % 86 % Lymphocytes % 7 % Monocytes % 5 % Eosinophils % 1 % Basophils % 0 % Neutrophils # 10.9 H (1.3-7.7) k/uL Lymphocytes # 0.9 L (1.0-4.8) k/uL Monocytes # 0.6 (0-1.0) k/uL Eosinophils # 0.1 (0-0.7) k/uL Basophils # 0.0 (0-0.2) k/uL Sodium 139 (137-145) mmol/L Potassium 3.5 (3.5-5.1) mmol/L Chloride 102 (98-107) mmol/L Carbon Dioxide 24 (22-30) mmol/L Anion Gap 13 mmol/L BUN 18 H (7-17) mg/dL Creatinine 0.75 (0.52-1.04) mg/dL Est GFR (CKD-EPI)AfAm >90 (>60 ml/min/1.73 sqM) Est GFR (CKD-EPI)NonAf 80 (>60 ml/min/1.73 sqM) Glucose 113 H (74-99) mg/dL Calcium 9.8 (8.4-10.2) mg/dL Magnesium 1.7 (1.6-2.3) mg/dL Total Bilirubin 0.7 (0.2-1.3) mg/dL AST 20 (14-36) U/L ALT 38 (9-52) U/L Alkaline Phosphatase 99 (38-126) U/L Total Creatine Kinase 138 H (30-135) U/L Total Protein 6.7 (6.3-8.2) g/dL Albumin 4.3 (3.5-5.0) g/dL Amylase 60 (30-110) U/L Lipase 77 (23-300) U/L - EKG Data -: EKG Interpreted by Me (EKG shows a sinus rhythm of 63. Interval 188 QRS duration 98 ) EKG shows normal: sinus rhythm - Radiology Data Radiology results: report reviewed (I did review the imaging and report or is some evidence of increased pulmonary vascular congestion.), image reviewed Critical Care Time Critical Care Time: Yes Critical Care Time: 31 minutes of critical care time which includes initial presentation and discussed with paramedics and review of reporting. History physical labs x- rays several reevaluation the patient discussed with patient family regarding the findings charting was available. Discussion with the admitting physician admission orders and documentation of the above Disposition Clinical Impression: Unstable angina, Gastroenteritis, Dehydration Disposition: ADMITTED IP TO THIS [facility] Condition: Stable Referrals: Chacorta Romero MD [Primary Care Provider] - 1-2 days
[2017-09-14 20:15] LABS: Basophils % (A) 0 %; Eosinophils # (A) 0.1 k/uL (0-0.7); Eosinophils % (A) 1 %; HCT 39.2 % (34.0-46.0); HGB 13.5 gm/dL (11.4-16.0); Lymphocytes # (A) 0.9 k/uL (1.0-4.8); Lymphocytes % (A) 7 %; MCH 28.9 pg (25.0-35.0); MCHC 34.4 g/dL (31.0-37.0); Mean Platelet Volume 6.8; Monocytes # (A) 0.6 k/uL (0-1.0); Monocytes % (A) 5 %; Neutrophils # (A) 10.9 k/uL (1.3-7.7); Neutrophils % (A) 86 %; Platelet Count 259 k/uL (150-450); RBC 4.67 m/uL (3.80-5.40); RDW 13.3 % (11.5-15.5); WBC 12.7 k/uL (3.8-10.6)
[2017-09-14 20:37] LABS: ALT 38 U/L (9-52); AST 20 U/L (14-36); Albumin 4.3 g/dL (3.5-5.0); Alkaline Phosphatase 99 U/L (38-126); Amylase 60 U/L (30-110); Anion Gap 13 mmol/L; Blood Urea Nitrogen 18 mg/dL (7-17); Calcium 9.8 mg/dL (8.4-10.2); Carbon Dioxide 24 mmol/L (22-30); Chloride 102 mmol/L (98-107); Glucose 113 mg/dL (74-99); Lipase 77 U/L (23-300); Magnesium 1.7 mg/dL (1.6-2.3); Potassium 3.5 mmol/L (3.5-5.1); Sodium 139 mmol/L (137-145); Total Bilirubin 0.7 mg/dL (0.2-1.3); Total Protein 6.7 g/dL (6.3-8.2)
[2017-09-14 21:00] LABS: Creatine Kinase 138 U/L (30-135)
--- NOTE | 2017-09-14 21:03 | XR ---
EXAMINATION TYPE: XR chest 2V DATE OF EXAM: 09/14/2017 COMPARISON: Chest CT 08/14/2016 HISTORY: Pain TECHNIQUE: Frontal and lateral views of the chest are obtained. FINDINGS: The heart is enlarged. Patient is rotated which may accentuate appearance. Lung volumes ar e low. Central vascularity and interstitium are increased. No evident pneumothorax or pleural effusio n. There are overlying cardiac leads. Patient's hiatal hernia and thoracic aortic aneurysm not well s een. IMPRESSION: Correlate for pulmonary venous hypertension and interstitial edema. Follow-up suggested.
--- NOTE | 2017-09-14 21:05 | XR ---
Abdomen HISTORY: Pain, nausea vomiting and diarrhea Frontal view of the abdomen submitted on 2 images and correlated prior exam 10/22/2014, CT pelvis 2015 Multiple calcifications are again noted within the pelvis are phleboliths. There is no evident bowel obstruction or pneumoperitoneum. Surgical clips present in the right upper quadrant. Lung bases are c lear. There are overlying cardiac leads. Pessary is in place. IMPRESSION: Nonobstructive bowel gas pattern.
[2017-09-14] MEDS ORDERED: NITROGLYCERIN SL TABS 0.4 MG TAB SUBLINGUAL PRN (21:16)
[2017-09-14] MEDS ORDERED: HEPARIN SODIUM,PORCINE 5,000 UNIT/ML 1 ML VIAL IV ONE (21:16)
[2017-09-14] MEDS ORDERED: ONDANSETRON 4 MG/2 ML VIAL IVP PRN (21:19)
[2017-09-14 21:20] LABS: Troponin I <0.012 ng/mL (0.000-0.034)
[2017-09-14 21:30] LABS: Creatine Kinase MB 2.7 ng/mL (0.0-2.4)
[2017-09-14] MEDS ORDERED: SODIUM CHLORIDE 0.9% 1,000 ML IV SCH (21:30)
[2017-09-14] MEDS ORDERED: HEPARIN SODIUM,PORCINE/D5W PMX 25,000 UNIT in DEXTROSE/WATER 1 500ML.BAG IV SCH (21:30)
[2017-09-14 22:36] VITALS: BMI 26.5
[2017-09-15 03:07] LABS: Appearance,Urine Clear (Clear); Bacteria,Urine Few /hpf; Bilirubin,Urine Negative (Negative); Blood,Urine Negative (Negative); Color,Urine Yellow; Glucose,Urine (UA) Negative (Negative); Hyaline Casts,Urine 11 /lpf (0-2); Ketones,Urine Trace (Negative); Leukocyte Esterase,Urine Trace (Negative); Mucus,Urine Rare /hpf; Nitrite,Urine Negative (Negative); PH, Urine 5.5 (5.0-8.0); Protein,Urine Negative (Negative); RBC,Urine <1 /hpf (0-5); Specific Gravity,Urine 1.015 (1.001-1.035); Squamous Epithelial Cell,Urine 2 /hpf (0-4); Urobilinogen,Urine <2.0 mg/dL (<2.0); WBC,Urine 2 /hpf (0-5)
[2017-09-15 04:32] LABS: Cholesterol 200 mg/dL (<200); HDL Cholesterol 35 mg/dL (40-60); LDL Cholesterol,Calculated 142 mg/dL (0-99); Triglycerides 117 mg/dL (<150)
[2017-09-15 04:40] LABS: Creatine Kinase 106 U/L (30-135)
[2017-09-15 04:53] LABS: Creatine Kinase MB 2.1 ng/mL (0.0-2.4); Troponin I <0.012 ng/mL (0.000-0.034)
[2017-09-15] MEDS ORDERED: PANTOPRAZOLE 40 MG TABLET PO SCH (07:30)
[2017-09-15 08:22] VITALS: RESP 18
[2017-09-15] MEDS ORDERED: HYDROCHLOROTHIAZIDE 25 MG TAB PO SCH (09:00)
[2017-09-15] MEDS ORDERED: ASPIRIN 81 MG PO SCH (09:00)
[2017-09-15] MEDS ORDERED: ASPIRIN 325 MG TAB PO SCH (09:00)
[2017-09-15] MEDS ORDERED: OXYBUTYNIN XL 5 MG TAB.ER.24 PO SCH (09:00)
[2017-09-15] MEDS ORDERED: LOSARTAN 50 MG TAB PO SCH (09:00)
[2017-09-15] MEDS ORDERED: ATENOLOL 25 MG TAB PO SCH (09:00)
--- NOTE | 2017-09-15 09:37 | CONS ---
CONSULTATION Attending doctor is Dr. Romero. Mrs. Machado is a 72-year-old female with known history of hypertension, hyperlipidemia, who presented to the hospital with nausea and vomiting and diarrhea. She has been having some episodes of chest discomfort on and off for a while and unrelated to any physical activity. She has been followed by Dr. Glover on a regular basis and had no prior history of obstructive coronary artery disease. She has underwent a stress test and echocardiogram in April of this year, but the results are not available to me at this point. The patient is active physically, has no exertional chest pain. She has no exertional dyspnea. She has occasional ankle edema. No clear PND or orthopnea. She felt dizzy yesterday with the nausea and vomiting and she bumped her head but she had no palpitations. Her coronary risk factors are remarkable for hypertension, hyperlipidemia. She is a nonsmoker, nondiabetic. MEDICATIONS: Current medications include Nexium, Detrol LA, Micardis HCT 80/25 mg daily, pravastatin 20 mg q.48 hours, Tenormin 25 mg daily and aspirin once a day. REVIEW OF SYSTEMS: RESPIRATORY SYSTEM: She has no documented history of obstructive lung disease. No significant cough or fever. GI SYSTEM: She had nausea and vomiting and diarrhea. She had no GI bleeding. SYSTEM: No dysuria or hematuria. NERVOUS SYSTEM: No stroke or seizure. PHYSICAL EXAMINATION: This is a 72-year-old female, alert, oriented, in no apparent distress. Blood pressure running in the high 90s with the heart rate in the 60s. HEAD: Normocephalic. EYES: Sclerae anicteric. NECK: Good upstroke. No bruit. No jugular venous distention. LUNGS: Clear to auscultation. HEART: Regular rate and rhythm. S1, S2. No S3 with systolic murmur ejection type heard at the base. No diastolic murmur. No rub. ABDOMEN: Soft. Mild tenderness. Positive bowel sounds. No organomegaly. EXTREMITIES: No edema. Intact distal pulses. LAB DATA: Lab data revealed troponin less than 0.012 for 2 samples. Cholesterol 200, LDL 142. BUN and creatinine of 18 and 0.75. Hemoglobin of 13.5. White blood cell of 12.7. EKG revealed a sinus mechanism, normal axis and intervals with T-wave inversion anteriorly. Chest x-ray raised the question of congestion. Abdominal x-ray was unremarkable. IMPRESSION: 1. Nausea, vomiting, and diarrhea suggestive of antral gastritis. 2. Chest discomfort, atypical for ischemic heart disease, probably noncardiac. 3. Hypertension. 4. Hyperlipidemia. RECOMMENDATION: The patient at this time is hypotensive. I will stop her hydrochlorothiazide and adjust her antihypertensive regimen. I would review the results of her echocardiogram and stress test that were done in April. Her EKG changes are not new, they were noted in 2015. From the cardiac standpoint, I see no evidence of active cardiac issues. If she remains stable, I would expect she should be able to be discharged home soon and follow as an outpatient with Dr. Glover. Thank you for this consult. We will follow with you. GATOL / IJN: [id number] /
[2017-09-15 09:41] LABS: Creatine Kinase 94 U/L (30-135)
[2017-09-15 09:51] LABS: Creatine Kinase MB 1.6 ng/mL (0.0-2.4); Troponin I <0.012 ng/mL (0.000-0.034)
[2017-09-15 11:39] VITALS: BP 108/63; PULSE 76; TEMP 98
[2017-09-15] MEDS ORDERED: MULTIVITAMINS, THERA 1 EACH TAB PO SCH (12:00)
--- NOTE | 2017-09-15 16:12 | P.HPIM ---
History of Present Illness H&P Date: 09/15/17 Chief Complaint: chest discomfort, N/V 72-year-old female who presented to the emergency room with a chief complaint of nausea, vomiting, and diarrhea x 1 day in duration. Patient states symptoms began after she ate a yogurt at home. Patient reported chest heaviness intermittent over the past week. She denied shortness of breath. Denied cough or sputum production. Denies fever or chills. Apparently, the patient felt dizzy at home yesterday and fell. She has a small abrasion on her forehead that resulted from her fall. The patient has a history of hyperlipidemia, hypertension, GERD, AAA, and migranes. Chest x-ray: Correlate for pulmonary venous hypertension and interstitial edema. KUB x-ray: No evidence of bowel obstruction or pneumoperitoneum. Nonobstructive bowel gas pattern. Laboratory data: WBC 12.7. Hemoglobin 13.5. Platelet count 259. Sodium 139. Potassium 3.5. BUN 18. Creatinine 0.75. Glucose 113. Magnesium 1.7. LFTs and pancreatic enzymes within normal limits Troponins negative 3 Lipid panel: triglycerides 117, cholesterol 200, LDL 142, HDL 35 Urinalysis reveals: trace ketones, trace leukocyte esterase, few bacteria, 11 hyaline casts, rare mucus The patient was admitted to the hospital under the care of Dr. Loepz to the observation unit. Consultations were placed to cardiology. Review of Systems Those systems with pertinent positive or pertinent negative responses have been documented in the HPI Past Medical History Past Medical History: GERD/Reflux, Hyperlipidemia, Hypertension Additional Past Medical History / Comment(s): cystocele with coil, hx migraines , hx ulcer, urinary leakage, AAA - pt states it is small and dr'manuel are just watching it History of Any Multi-Drug Resistant Organisms: None Reported Past Surgical History: Bladder Surgery, Cholecystectomy, Hernia Repair, Orthopedic Surgery, Tonsillectomy, Tubal Ligation Additional Past Surgical History / Comment(s): R eye surgery FOR RETINAL TEAR , Rt carpal tunnel release, BLADDER COIL Past Anesthesia/Blood Transfusion Reactions: Motion Sickness, Postoperative Nausea & Vomiting (PONV) Additional Past Anesthesia/Blood Transfusion Reaction / Comment(s): . Past Psychological History: No Psychological Hx Reported Additional Psychological History / Comment(s): . Smoking Status: Never smoker Past Alcohol Use History: None Reported Past Drug Use History: None Reported - Past Family History Brother(s) Family Medical History: Cancer Father Family Medical History: COPD Additional Family Medical History / Comment(s): FATHER IS AND PT UNSURE AT WHAT AGE HE . FATHER HAD ETOH ABUSE. Mother Family Medical History: Cancer Additional Family Medical History / Comment(s): MOTHER RECENTLY AT AGE 86YRS from CAD. HER CANCERS WERE OF THE BREAST AND THE BOWEL. Medications and Allergies Home Medications Medication Instructions Recorded Confirmed Type Atenolol [Tenormin] 25 mg PO DAILY 10/28/13 09/14/17 History Multivitamins, Thera [Multivitamin 1 tab PO DAILY 01/13/16 09/14/17 History (formulary)] Tolterodine Tartrate [Detrol LA] 4 mg PO DAILY 01/13/16 09/14/17 History Aspirin [Adult Low Dose Aspirin EC] 81 mg PO DAILY 05/17/17 09/14/17 History Esomeprazole Magnesium [NexIUM 20 mg PO DAILY 09/14/17 09/14/17 History 24Hr] Losartan [Cozaar] 100 mg PO DAILY #60 tab 09/15/17 Rx Pravastatin Sodium [Pravachol] 20 mg PO DAILY #30 tab 09/15/17 Rx Allergies Allergy/AdvReac Type Severity Reaction Status Date / Time Penicillins Allergy Rash/Hives Verified 09/14/17 20:07 Physical Exam Vitals: Vital Signs Temp Pulse Pulse Resp BP BP Pulse Ox 09/15/17 08:00 68 18 09/15/17 07:45 98.2 F 68 18 98/55 95 09/15/17 05:48 99/55 09/15/17 03:57 98.4 F 70 16 89/52 92 L 09/15/17 03:37 67 16 09/14/17 23:13 71 16 09/14/17 22:29 97.8 F 68 16 115/65 93 L 09/14/17 21:13 61 20 106/56 95 09/14/17 20:52 57 L 20 116/55 96 09/14/17 19:48 97.9 F 63 20 130/58 96 Intake and Output 09/14/17 09/15/17 09/15/17 22:59 06:59 14:59 Intake Total 1100 122.128 Balance 1100 122.128 Intake: Amount of Fluid Infused ( 1100 ml) Intake, IV Titration 122.128 Amount Heparin Sodium,Porcine/ 122.128 D5w Pmx 25,000 unit In Dextrose/Water 1 500ml. bag @ 12 UNITS/KG/HR 16. 32 mls/hr IV .Q24H [facility] Rx #:[id number] Other: Voiding Method Toilet Toilet # Voids 1 2 Weight 68.039 kg GENERAL: This is a 72-year-old female in no apparent distress at the time of examination. Pleasant and cooperative. HEENT: Head is normocephalic. Small abrasion noted to patients forehead. Pupils are equal, round, and reactive to light. Sclerae anicteric. Conjunctivae are clear. Mucus membranes of the mouth are moist. Neck is supple. RESPIRATORY: Clear to ausculation. No wheezes, rales, or rhonchi. No use of accessory muscles. Patient maintaining oxygen saturation greater than 92%. No chest wall tenderness is noted on palpation or with deep breathing. CARDIOVASCULAR: Regular rate and rhythm. S1 and S2 noted. Systolic murmur auscultated. No JVD noted. No S3 or S4 noted. GASTROINTESTINAL: No distention noted. Abdomen soft and round. Normal active bowel sounds auscultated x 4 quadrants. No pain or tenderness noted upon palpation. INTEGUMENTARY: No cyanosis. No jaundice. No rashes noted. No cellulitis noted. EXTREMITIES: 2+ peripheral pulses. No evidence of peripheral edema. No calf tenderness noted. NEUROLOGIC: Cranial nerves II-XII intact. PSYCHIATRIC: Awake, alert, and oriented X 3. Appropriate affect. Intact judgement and insight. Results CBC & Chem 7: 09/14/17 20:04 09/14/17 20:04 Labs: Abnormal Lab Results - Last 24 Hours (Table) 09/14/17 09/14/17 09/14/17 Range/Units 20:04 20:04 20:04 WBC 12.7 H (3.8-10.6) k/uL Neutrophils # 10.9 H (1.3-7.7) k/uL Lymphocytes # 0.9 L (1.0-4.8) k/uL APTT (22.0-30.0) sec BUN 18 H (7-17) mg/dL Glucose 113 H (74-99) mg/dL Total Creatine Kinase 138 H (30-135) U/L CK-MB (CK-2) 2.7 H* (0.0-2.4) ng/mL Cholesterol (<200) mg/dL LDL Cholesterol, Calc (0-99) mg/dL HDL Cholesterol (40-60) mg/dL Urine Ketones (Negative) Ur Leukocyte Esterase (Negative) Urine Bacteria (None) /hpf Hyaline Casts (0-2) /lpf Urine Mucus (None) /hpf 09/15/17 09/15/17 09/15/17 Range/Units 02:35 03:20 03:20 WBC (3.8-10.6) k/uL Neutrophils # (1.3-7.7) k/uL Lymphocytes # (1.0-4.8) k/uL APTT 35.6 H (22.0-30.0) sec BUN (7-17) mg/dL Glucose (74-99) mg/dL Total Creatine Kinase (30-135) U/L CK-MB (CK-2) (0.0-2.4) ng/mL Cholesterol 200 H (<200) mg/dL LDL Cholesterol, Calc 142 H (0-99) mg/dL HDL Cholesterol 35 L (40-60) mg/dL Urine Ketones Trace H (Negative) Ur Leukocyte Esterase Trace H (Negative) Urine Bacteria Few H (None) /hpf Hyaline Casts 11 H (0-2) /lpf Urine Mucus Rare H (None) /hpf 09/15/17 Range/Units 08:29 WBC (3.8-10.6) k/uL Neutrophils # (1.3-7.7) k/uL Lymphocytes # (1.0-4.8) k/uL APTT 36.7 H (22.0-30.0) sec BUN (7-17) mg/dL Glucose (74-99) mg/dL Total Creatine Kinase (30-135) U/L CK-MB (CK-2) (0.0-2.4) ng/mL Cholesterol (<200) mg/dL LDL Cholesterol, Calc (0-99) mg/dL HDL Cholesterol (40-60) mg/dL Urine Ketones (Negative) Ur Leukocyte Esterase (Negative) Urine Bacteria (None) /hpf Hyaline Casts (0-2) /lpf Urine Mucus (None) /hpf Thrombosis Risk Factor Assmnt - Choose All That Apply Each Factor Represents 1 point: Obesity (BMI >25) Each Risk Factor Represents 2 Points: Age 61-74 years Thrombosis Risk Factor Assessment Total Risk Factor Score: 3 Thrombosis Risk Factor Assessment Level: Moderate Risk Assessment and Plan Plan: ASSESSMENT: Nausea, vomiting, and diarrhea x 1 day, present on admission, likely secondary to gastroenteritis Atypical chest pain, acute coronary syndrome ruled out per cardiology Hypertension Hyperlipidemia Gastroesophageal reflux disease History of abdominal aortic aneurysm PLAN: Cardiology on consult. Appreciate recommendations and input. HCTZ D/C per cardiology secondary to hypotension Monitor blood pressure Continue IV fluids Home meds as appropriate Monitor labs GI prophylaxis: Protonix 40 mg PO Daily DVT prophylaxis: Encourage ambulation Monitor vital signs and address as appropriate Discharge planning: Patient to return home when stable Further recommendations pending patient's course Nurse practitioner note has been reviewed by physician. Signing provider agrees with the documented findings, assessment, and plan of care.
[2017-09-16] MEDS ORDERED: LOSARTAN 50 MG TAB PO SCH (09:00)
[2017-09-16] MEDS ORDERED: PRAVASTATIN SODIUM 20 MG TAB PO SCH ×2 (09:00→21:00)
--- NOTE | 2017-09-17 13:31 | P.DS ---
Providers Date of admission: 09/14/17 21:16 Expected date of discharge: 09/15/17 Attending physician: Deni Lopez Consults: 09/14/17 21:16 Consult Physician Urgent Consulting Provider: Subhash Glover Consult Reason/Comments: Chest pain, unstable angina Do you want consulting provider notified?: Yes Primary care physician: [facility] Course: 72-year-old female who presented to the emergency room with a chief complaint of nausea, vomiting, and diarrhea x 1 day in duration. Patient states symptoms began after she ate a yogurt at home. Patient reported chest heaviness intermittent over the past week. She denied shortness of breath. Denied cough or sputum production. Denies fever or chills. Apparently, the patient felt dizzy at home yesterday and fell. She has a small abrasion on her forehead that resulted from her fall. The patient has a history of hyperlipidemia, hypertension, GERD, AAA, and migranes. Chest x-ray: Correlate for pulmonary venous hypertension and interstitial edema. KUB x-ray: No evidence of bowel obstruction or pneumoperitoneum. Nonobstructive bowel gas pattern. Laboratory data: WBC 12.7. Hemoglobin 13.5. Platelet count 259. Sodium 139. Potassium 3.5. BUN 18. Creatinine 0.75. Glucose 113. Magnesium 1.7. LFTs and pancreatic enzymes within normal limits Troponins negative 3 Lipid panel: triglycerides 117, cholesterol 200, LDL 142, HDL 35 Urinalysis reveals: trace ketones, trace leukocyte esterase, few bacteria, 11 hyaline casts, rare mucus The patient was admitted to the hospital under the care of Dr. Lopez to the observation unit. Consultations were placed to cardiology. Cardiology evaluated the patient and acute coronary syndrome was ruled out. Her hydrochlorothiazide was discontinued secondary to hypotension. The patient was deemed stable for discharge per Dr. Lopez. She is to follow up on an outpatient basis with her primary care physician and her costumer assistant. DISCHARGE DIAGNOSIS: Nausea, vomiting, and diarrhea x 1 day, present on admission, likely secondary to gastroenteritis Atypical chest pain, acute coronary syndrome ruled out per cardiology Hypertension Hyperlipidemia Gastroesophageal reflux disease History of abdominal aortic aneurysm Nurse practitioner note has been reviewed by physician. Signing provider agrees with the documented findings, assessment, and plan of care. Patient Condition at Discharge: Stable Plan - Discharge Summary New Discharge Prescriptions: New Losartan [Cozaar] 100 mg PO DAILY #60 tab Pravastatin Sodium [Pravachol] 20 mg PO DAILY #30 tab Continue Atenolol [Tenormin] 25 mg PO DAILY Tolterodine Tartrate [Detrol LA] 4 mg PO DAILY Multivitamins, Thera [Multivitamin (formulary)] 1 tab PO DAILY Aspirin [Adult Low Dose Aspirin EC] 81 mg PO DAILY Esomeprazole Magnesium [NexIUM 24Hr] 20 mg PO DAILY Discontinued Telmisartan/Hydrochlorothiazid [Micardis Hct 80-25 mg Tablet] 1 tab PO DAILY Pravastatin Sodium [Pravachol] 20 mg PO Q48H Discharge Medication List Atenolol [Tenormin] 25 mg PO DAILY 10/28/13 [History] Multivitamins, Thera [Multivitamin (formulary)] 1 tab PO DAILY 01/13/16 [History ] Tolterodine Tartrate [Detrol LA] 4 mg PO DAILY 01/13/16 [History] Aspirin [Adult Low Dose Aspirin EC] 81 mg PO DAILY 05/17/17 [History] Esomeprazole Magnesium [NexIUM 24Hr] 20 mg PO DAILY 09/14/17 [History] Losartan [Cozaar] 100 mg PO DAILY #60 tab 09/15/17 [Rx] Pravastatin Sodium [Pravachol] 20 mg PO DAILY #30 tab 09/15/17 [Rx] Follow up Appointment(s)/Referral(s): Brett Bernabe MD [STAFF PHYSICIAN] - 1 Week Chacorta Romero MD [Primary Care Provider] - 3 Days Discharge Disposition: HOME SELF-CARE
== END 2017-09-15 16:50 | disposition home or self-care (01) ==
LOC: EC 19:44 → 3OBS 21:16
PROVIDERS: ADMIT Family Medicine; ATTEND Family Medicine
DX: R07.89 Other chest pain (principal); R11.2 Nausea with vomiting, unspecified; R19.7 Diarrhea, unspecified; R42 Dizziness and giddiness; I10 Essential (primary) hypertension; E78.5 Hyperlipidemia, unspecified; S00.81XA Abrasion of other part of head, initial encounter; E86.0 Dehydration; K21.9 Gastro-esophageal reflux disease without esophagitis; I71.4 Abdominal aortic aneurysm, without rupture; R32 Unspecified urinary incontinence; G43.909 Migraine, unspecified, not intractable, without status migrainosus; E66.9 Obesity, unspecified; Z68.26 Body mass index [BMI] 26.0-26.9, adult; I95.9 Hypotension, unspecified; W19.XXXA Unspecified fall, initial encounter; Y92.009 Unspecified place in unspecified non-institutional (private) residence as the place of occurrence of the external cause; Z90.49 Acquired absence of other specified parts of digestive tract; Z79.82 Long term (current) use of aspirin; Z79.899 Other long term (current) drug therapy; Z88.0 Allergy status to penicillin; Z80.3 Family history of malignant neoplasm of breast; Z80.0 Family history of malignant neoplasm of digestive organs; Z82.49 Family history of ischemic heart disease and other diseases of the circulatory system; Z83.6 Family history of other diseases of the respiratory system; Z81.1 Family history of alcohol abuse and dependence
CPT/HCPCS: 99291 ×2; 96365 ×2; 96376 ×2; 96361 ×4; 96366 ×2; 36415; 94760; 93005; 83880; 80061; 80053; 82150; 82550 ×2; 82553 ×2; 83690; 83735; 84484 ×2; 85025; 85730; 81001; 71046; 74018; G0378 ×2; J1644 ×2

== ENCOUNTER → 2017-12-21 | Outpatient (CLI) | payer MEDICARE, BC ==
--- NOTE | 2017-12-22 07:43 | MM ---
Reason for exam: screening (asymptomatic). Last mammogram was performed 1 year and 3 months ago. History: Patient is postmenopausal. Family history of breast cancer in aunt and breast cancer in cousin. Core biopsy of the right breast, 2007. Physical Findings: A clinical breast exam by your physician is recommended on an annual basis and results should be correlated with mammographic findings. MG 3D Screening Mammo W/Cad Bilateral CC and MLO view(s) were taken. Prior study comparison: September 07, 2016, bilateral MG 3d screening mammo w/cad. September 06, 2015, bilateral MG 3d screening mammo w/cad. The breast tissue is heterogeneously dense. This may lower the sensitivity of mammography. Previous mammotome biopsy in the right breast. There is chronic nodularity bilaterally, stable. No significant changes when compared with prior studies. ASSESSMENT: Benign, BI-RAD 2 RECOMMENDATION: Routine screening mammogram of both breasts in 1 year.
== END | disposition home or self-care (01) ==
LOC: RADMAMWWP 07:14
PROVIDERS: ATTEND Obstetrics & Gynecology
DX: Z12.31 Encounter for screening mammogram for malignant neoplasm of breast (principal)
CPT/HCPCS: 77063; 77067

== ENCOUNTER 2018-06-01 12:09 | Emergency (ER) | payer MEDICARE, BC ==
[2018-06-01 12:15] VITALS: RESP 18
[2018-06-01] MEDS ORDERED: ONDANSETRON 4 MG/2 ML VIAL IVP STA (12:47)
[2018-06-01] MEDS ORDERED: SODIUM CHLORIDE 0.9% 1,000 ML IV ONE (12:48)
--- NOTE | 2018-06-01 12:53 | ED ---
General Adult HPI - General Chief complaint: Nausea/Vomiting/Diarrhea Stated complaint: Vomiting,weak,not eating,lower back and abd pain Time Seen by Provider: 06/01/18 12:19 Source: patient, RN notes reviewed Mode of arrival: ambulatory Limitations: no limitations - History of Present Illness Initial comments: Patient is a 72-year-old female with history of GERD, hyperlipidemia, hypertension, AAA, cholecystectomy, hernia repair, cystocele with coil who presents to the emergency department with complaint of nausea, vomiting, abdominal pain, fatigue, body aches, and chills that started yesterday. She reports that her last episode of vomiting was at 2 AM this morning. She reports having some sips of [employer] soda today that stayed down. She reports having many episodes of vomiting (nonbloody, nonbilious) yesterday. Patient denies any recent fever, shortness of breath, cough, chest pain, numbness or tingling, dysuria or hematuria, diarrhea, changes in stool, headaches or visual changes, or any other complaints. - Related Data Home Medications Medication Instructions Recorded Confirmed Atenolol [Tenormin] 25 mg PO DAILY 10/28/13 06/01/18 Multivitamins, Thera [Multivitamin 1 tab PO DAILY 01/13/16 06/01/18 (formulary)] Tolterodine Tartrate [Detrol LA] 4 mg PO DAILY 01/13/16 06/01/18 Aspirin [Adult Low Dose Aspirin EC] 81 mg PO DAILY 05/17/17 06/01/18 Esomeprazole Magnesium [NexIUM] 40 mg PO DAILY 06/01/18 06/01/18 Losartan Potassium [Cozaar] 100 mg PO DAILY 06/01/18 06/01/18 Pravastatin Sodium [Pravachol] 40 mg PO DAILY 06/01/18 06/01/18 Previous Rx's Medication Instructions Recorded Ondansetron Odt [Zofran ODT] 4 mg PO Q8HR PRN #10 tab 06/01/18 Allergies Allergy/AdvReac Type Severity Reaction Status Date / Time Penicillins Allergy Rash/Hives Verified 06/01/18 12:25 Review of Systems ROS Statement: Those systems with pertinent positive or pertinent negative responses have been documented in the HPI. ROS Other: All systems not noted in ROS Statement are negative. Past Medical History Past Medical History: GERD/Reflux, Hyperlipidemia, Hypertension Additional Past Medical History / Comment(s): cystocele with coil, hx migraines , hx ulcer, urinary leakage, AAA - pt states it is small and dr's are just watching it History of Any Multi-Drug Resistant Organisms: None Reported Past Surgical History: Bladder Surgery, Cholecystectomy, Hernia Repair, Orthopedic Surgery, Tonsillectomy, Tubal Ligation Additional Past Surgical History / Comment(s): R eye surgery FOR RETINAL TEAR , Rt carpal tunnel release, BLADDER COIL Past Anesthesia/Blood Transfusion Reactions: Motion Sickness, Postoperative Nausea & Vomiting (PONV) Additional Past Anesthesia/Blood Transfusion Reaction / Comment(s): . Past Psychological History: No Psychological Hx Reported Smoking Status: Never smoker Past Alcohol Use History: None Reported Past Drug Use History: None Reported - Past Family History Brother(s) Family Medical History: Cancer Father Family Medical History: COPD Additional Family Medical History / Comment(s): FATHER IS AND PT UNSURE AT WHAT AGE HE . FATHER HAD ETOH ABUSE. Mother Family Medical History: Cancer Additional Family Medical History / Comment(s): MOTHER RECENTLY AT AGE 86YRS from CAD. HER CANCERS WERE OF THE BREAST AND THE BOWEL. General Exam Limitations: no limitations General appearance: alert, in no apparent distress Head exam: Present: atraumatic, normocephalic Eye exam: Present: normal appearance, PERRL ENT exam: Present: normal oropharynx, mucous membranes moist, TM's normal bilaterally, normal external ear exam Respiratory exam: Present: normal lung sounds bilaterally. Absent: wheezes, rales, rhonchi Cardiovascular Exam: Present: regular rate, normal rhythm GI/Abdominal exam: Present: soft, tenderness (Mild epigastric tenderness to palpation.), normal bowel sounds. Absent: distended Extremities exam: Present: normal inspection, normal capillary refill Back exam: Absent: CVA tenderness (R), CVA tenderness (L) Neurological exam: Present: alert, oriented X3 Skin exam: Present: warm, dry Course Vital Signs 06/01/18 06/01/18 06/01/18 12:11 12:25 14:00 Temperature 99.5 F Pulse Rate 83 84 77 Respiratory 18 18 18 Rate Blood Pressure 177/158 136/85 119/91 O2 Sat by Pulse 97 93 L 94 L Oximetry 06/01/18 06/01/18 14:30 15:23 Temperature 97.8 F Pulse Rate 80 79 Respiratory 18 18 Rate Blood Pressure 124/68 118/75 O2 Sat by Pulse 93 L 93 L Oximetry Medical Decision Making - Medical Decision Making Patient given Zofran, Ofirmev, and one fluid bolus. Influenza A and B are negative. Urine culture ordered. CT abdomen and pelvis reveals: Prominent fluid filled small bowel loops in the lower abdomen and pelvis. Some liquid stool in the right side of the colon. Correlate for possible enteritis. Left-sided colonic diverticulosis without evidence for acute diverticulitis. Moderate-sized hiatal hernia. A 2 cm low density nodule of the right adrenal gland. Stable 3 cm cyst of the left ovary as compared to 2016. Patient's O2 saturation increases to 96% at times. Patient denies any shortness of breath. Patient instructed to follow-up with PCP regarding adrenal gland nodule. Will prescribe Zofran. Case discussed in detail with attending physician Dr. Baxter. - Lab Data Result diagrams: 06/01/18 12:29 06/01/18 12:29 Lab Results 06/01/18 06/01/18 06/01/18 Range/Units 12:29 12:29 12:29 WBC 9.1 (3.8-10.6) k/uL RBC 4.77 (3.80-5.40) m/uL Hgb 13.4 (11.4-16.0) gm/dL Hct 41.0 (34.0-46.0) % MCV 85.9 (80.0-100.0) fL MCH 28.1 (25.0-35.0) pg MCHC 32.7 (31.0-37.0) g/dL RDW 13.8 (11.5-15.5) % Plt Count 236 (150-450) k/uL Neutrophils % 91 % Lymphocytes % 4 % Monocytes % 3 % Eosinophils % 1 % Basophils % 0 % Neutrophils # 8.3 H (1.3-7.7) k/uL Lymphocytes # 0.4 L (1.0-4.8) k/uL Monocytes # 0.3 (0-1.0) k/uL Eosinophils # 0.1 (0-0.7) k/uL Basophils # 0.0 (0-0.2) k/uL Sodium 141 (137-145) mmol/L Potassium 3.9 (3.5-5.1) mmol/L Chloride 106 (98-107) mmol/L Carbon Dioxide 27 (22-30) mmol/L Anion Gap 8 mmol/L BUN 16 (7-17) mg/dL Creatinine 0.62 (0.52-1.04) mg/dL Est GFR (CKD-EPI)AfAm >90 (>60 ml/min/1.73 sqM) Est GFR (CKD-EPI)NonAf >90 (>60 ml/min/1.73 sqM) Glucose 127 H (74-99) mg/dL Plasma Lactic Acid Edgar 1.0 (0.7-2.0) mmol/L Calcium 9.3 (8.4-10.2) mg/dL Total Bilirubin 0.7 (0.2-1.3) mg/dL AST 20 (14-36) U/L ALT 42 (9-52) U/L Alkaline Phosphatase 113 (38-126) U/L Total Protein 6.6 (6.3-8.2) g/dL Albumin 3.9 (3.5-5.0) g/dL Lipase 38 (23-300) U/L Urine Color Urine Appearance (Clear) Urine pH (5.0-8.0) Ur Specific [place] (1.001-1.035) Urine Protein (Negative) Urine Glucose (UA) (Negative) Urine Ketones (Negative) Urine Blood (Negative) Urine Nitrite (Negative) Urine Bilirubin (Negative) Urine Urobilinogen (<2.0) mg/dL Ur Leukocyte Esterase (Negative) Urine RBC (0-5) /hpf Urine WBC (0-5) /hpf Ur Squamous Epith Cells (0-4) /hpf Urine Bacteria (None) /hpf Urine Mucus (None) /hpf Influenza Type A RNA (Not Detectd) Influenza Type B (PCR) (Not Detectd) 06/01/18 06/01/18 Range/Units 13:12 13:12 WBC (3.8-10.6) k/uL RBC (3.80-5.40) m/uL Hgb (11.4-16.0) gm/dL Hct (34.0-46.0) % MCV (80.0-100.0) fL MCH (25.0-35.0) pg MCHC (31.0-37.0) g/dL RDW (11.5-15.5) % Plt Count (150-450) k/uL Neutrophils % % Lymphocytes % % Monocytes % % Eosinophils % % Basophils % % Neutrophils # (1.3-7.7) k/uL Lymphocytes # (1.0-4.8) k/uL Monocytes # (0-1.0) k/uL Eosinophils # (0-0.7) k/uL Basophils # (0-0.2) k/uL Sodium (137-145) mmol/L Potassium (3.5-5.1) mmol/L Chloride (98-107) mmol/L Carbon Dioxide (22-30) mmol/L Anion Gap mmol/L BUN (7-17) mg/dL Creatinine (0.52-1.04) mg/dL Est GFR (CKD-EPI)AfAm (>60 ml/min/1.73 sqM) Est GFR (CKD-EPI)NonAf (>60 ml/min/1.73 sqM) Glucose (74-99) mg/dL Plasma Lactic Acid Edgar (0.7-2.0) mmol/L Calcium (8.4-10.2) mg/dL Total Bilirubin (0.2-1.3) mg/dL AST (14-36) U/L ALT (9-52) U/L Alkaline Phosphatase (38-126) U/L Total Protein (6.3-8.2) g/dL Albumin (3.5-5.0) g/dL Lipase (23-300) U/L Urine Color Yellow Urine Appearance Cloudy H (Clear) Urine pH 6.0 (5.0-8.0) Ur Specific [place] 1.024 (1.001-1.035) Urine Protein 1+ H (Negative) Urine Glucose (UA) Negative (Negative) Urine Ketones 1+ H (Negative) Urine Blood Negative (Negative) Urine Nitrite Negative (Negative) Urine Bilirubin Negative (Negative) Urine Urobilinogen 3.0 (<2.0) mg/dL Ur Leukocyte Esterase Large H (Negative) Urine RBC 1 (0-5) /hpf Urine WBC 10 H (0-5) /hpf Ur Squamous Epith Cells 54 H (0-4) /hpf Urine Bacteria Many H (None) /hpf Urine Mucus Many H (None) /hpf Influenza Type A RNA Not Detected (Not Detectd) Influenza Type B (PCR) Not Detected (Not Detectd) Disposition Clinical Impression: Gastroenteritis Disposition: HOME SELF-CARE Condition: Good Instructions (If sedation given, give patient instructions): Acute Nausea and Vomiting (ED) Additional Instructions: Follow-up with your PCP in 1-2 days. Please follow-up with your PCP regarding right adrenal gland nodule. Drink plenty of fluids. Return to the emergency department if your symptoms worsen or other concerns. Prescriptions: Ondansetron Odt [Zofran ODT] 4 mg PO Q8HR PRN #10 tab PRN Reason: Nausea Is patient prescribed a controlled substance at d/c from ED?: No Referrals: Chacorta Romero MD [Primary Care Provider] - 1-2 days Time of Disposition: 14:57
[2018-06-01 13:09] LABS: Basophils % (A) 0 %; Eosinophils # (A) 0.1 k/uL (0-0.7); Eosinophils % (A) 1 %; HGB 13.4 gm/dL (11.4-16.0); Lymphocytes # (A) 0.4 k/uL (1.0-4.8); Lymphocytes % (A) 4 %; MCH 28.1 pg (25.0-35.0); MCHC 32.7 g/dL (31.0-37.0); MCV 85.9 fL (80.0-100.0); Mean Platelet Volume 6.9; Monocytes # (A) 0.3 k/uL (0-1.0); Monocytes % (A) 3 %; Neutrophils # (A) 8.3 k/uL (1.3-7.7); Neutrophils % (A) 91 %; Platelet Count 236 k/uL (150-450); RBC 4.77 m/uL (3.80-5.40); RDW 13.8 % (11.5-15.5); WBC 9.1 k/uL (3.8-10.6)
[2018-06-01 13:21] LABS: ALT 42 U/L (9-52); AST 20 U/L (14-36); Albumin 3.9 g/dL (3.5-5.0); Alkaline Phosphatase 113 U/L (38-126); Anion Gap 8 mmol/L; Blood Urea Nitrogen 16 mg/dL (7-17); Calcium 9.3 mg/dL (8.4-10.2); Carbon Dioxide 27 mmol/L (22-30); Chloride 106 mmol/L (98-107); Glucose 127 mg/dL (74-99); Lipase 38 U/L (23-300); Potassium 3.9 mmol/L (3.5-5.1); Sodium 141 mmol/L (137-145); Total Bilirubin 0.7 mg/dL (0.2-1.3); Total Protein 6.6 g/dL (6.3-8.2)
[2018-06-01] MEDS ORDERED: ACETAMINOPHEN IV (For NPO) 1,000 MG in EMPTY BAG 1 BAG IVPB STA (13:33)
[2018-06-01 13:34] LABS: Appearance,Urine Cloudy (Clear); Bacteria,Urine Many /hpf; Bilirubin,Urine Negative (Negative); Blood,Urine Negative (Negative); Color,Urine Yellow; Glucose,Urine (UA) Negative (Negative); Ketones,Urine 1+ (Negative); Leukocyte Esterase,Urine Large (Negative); Mucus,Urine Many /hpf; Nitrite,Urine Negative (Negative); Protein,Urine 1+ (Negative); RBC,Urine 1 /hpf (0-5); Specific Gravity,Urine 1.024 (1.001-1.035); Squamous Epithelial Cell,Urine 54 /hpf (0-4); WBC,Urine 10 /hpf (0-5)
--- NOTE | 2018-06-01 14:13 | CT ---
EXAMINATION TYPE: CT abdomen pelvis w con DATE OF EXAM: 06/01/2018 COMPARISON: NONE HISTORY: 72-year-old female with left flank pain TECHNIQUE: Contiguous axial scanning of the abdomen and pelvis following administration of 100 ml Iso pk 300 IV contrast. Delayed images through the kidneys and coronal/sagittal reconstructions perform ed. CT DLP: 686.6 mGycm Automated exposure control for dose reduction was used. FINDINGS: Heart normal size without pericardial effusion. Lung bases clear without pleural effusion. Moderate-sized hiatal hernia. No focal liver lesion or biliary ductal dilatation. Portal venous system is patent. Cholecystectomy clips. Low-density 2.0 cm nodule of the right adrenal gland statistically represents a benign adrenal adenom a. Left adrenal gland, spleen, and pancreas appear within normal limits. Kidneys show no evidence for nephrolithiasis or hydronephrosis. Extrarenal pelvis on both sides. Symm etric uptake and excretion of contrast from the kidneys. Some prominent fluid-filled small bowel loops in the mid to lower abdomen and pelvis. No dilated smal l bowel, free fluid, or free air. Normal appendix. Some liquid stool seen in the right side of the co jose. No significant stool burden. Mild left-sided colonic diverticulosis. No pericolonic inflammatory change. Bladder nondistended. Uterus and both ovaries are visualized. Multiple phleboliths in the pelvis. 3.0 cm cystic lesion of the left ovary, unchanged from 01/20/2016. A pessary device remains in place. No abnormal fluid collection in the pelvis or pelvic lymphadenopathy seen. Bones: Mild degenerative changes at the hips. Degenerative disc disease L4-L5 and facet arthropathy w ith grade 1 anterolisthesis at L4-L5. Disc bulge at this level mildly narrows the spinal canal. IMPRESSION: 1. PROMINENT FLUID-FILLED SMALL BOWEL LOOPS IN THE LOWER ABDOMEN AND PELVIS. SOME LIQUID STOOL IN THE RIGHT SIDE OF THE COLON. CORRELATE FOR POSSIBLE ENTERITIS. 2. LEFT-SIDED COLONIC DIVERTICULOSIS WITHOUT EVIDENCE FOR ACUTE DIVERTICULITIS. 3. NO NEPHROLITHIASIS OR HYDRONEPHROSIS. 4. MODERATE-SIZED HIATAL HERNIA. 5. A 2 CM LOW-DENSITY NODULE OF THE RIGHT ADRENAL GLAND COMPATIBLE WITH A LIPID RICH ADRENAL ADENOMA WHEN CORRELATED WITH A 5.8 [place] UNIT DENSITY ON THE PATIENT'S NONCONTRAST 08/14/[address] 6. STABLE 3 CM CYST OF THE LEFT OVARY COMPARED TO 2016. IN A POSTMENOPAUSAL FEMALE, CONTINUED ARIADNA AL ULTRASOUND SURVEILLANCE IS RECOMMENDED.
[2018-06-01 15:25] VITALS: BP 118/75; PULSE 79; TEMP 97.8
== END 2018-06-01 15:24 | disposition home or self-care (01) ==
LOC: EC 12:09
DX: K52.9 Noninfective gastroenteritis and colitis, unspecified (principal); K57.90 Diverticulosis of intestine, part unspecified, without perforation or abscess without bleeding; K44.9 Diaphragmatic hernia without obstruction or gangrene; N83.202 Unspecified ovarian cyst, left side; E27.8 Other specified disorders of adrenal gland; K21.9 Gastro-esophageal reflux disease without esophagitis; E78.5 Hyperlipidemia, unspecified; I10 Essential (primary) hypertension; Z90.49 Acquired absence of other specified parts of digestive tract; Z98.890 Other specified postprocedural states; Z98.51 Tubal ligation status; Z79.82 Long term (current) use of aspirin; Z79.899 Other long term (current) drug therapy; Z88.0 Allergy status to penicillin
CPT/HCPCS: 36415; 80053; 83605; 83690; 85025; 81001; 87086; 87502; 74177; 99284; 96374; 96375; 96361; J2405; J0131; Q9967

== ENCOUNTER → 2019-01-10 | Outpatient (CLI) | payer MEDICARE, BC ==
--- NOTE | 2019-01-10 12:40 | BD ---
EXAMINATION TYPE: Axial Bone Density DATE OF EXAM: 01/10/2019 COMPARISON: M 89.9 CLINICAL HISTORY: disorder of bone Height: 5'3 Weight: 160 FRAX RISK QUESTIONS: Secondary Osteoporosis: RISK FACTORS HISTORY OF: Active: n Postmenopausal woman: y MEDICATIONS: Additional Medications: blood pressure, cholesterol , acid reflux Additional History: EXAM MEASUREMENTS: Bone mineral densitometry was performed using the [employer] System. Bone mineral density as measured about the Lumbar spine is: ----- L1-L4(G/cm2): 1.023 T Score Values are as follows: ----- L2: -2.1 ----- L3: -1.1 ----- L4: -1.1 ----- L1-L4: -1.3 Bone mineral density about the R hip (g/cm2): 0.855 Bone mineral density about the L hip (g/cm2): 0.895 T Score values are as follows: -----R Neck: -1.3 -----L Neck: -1.0 -----R Total: -0.9 -----L Total: -0.6 IMPRESSION: Osteopenia (T Score between -2.5 and -1). There is slightly increased risk of fracture and the patient may be considered for treatment. Re-Screen 2-5 years. NOTE: T-SCORE=SD OF THE YOUNG ADULT MEAN.
--- NOTE | 2019-01-12 10:53 | MM ---
Reason for exam: screening (asymptomatic). Last mammogram was performed 1 year and 1 month ago. History: Patient is postmenopausal. Family history of breast cancer in mother at age 75, breast cancer in paternal aunt, and breast cancer in maternal cousin. Core biopsy of the right breast, 2007. Physical Findings: A clinical breast exam by your physician is recommended on an annual basis and results should be correlated with mammographic findings. MG 3D Screening Mammo W/Cad Bilateral CC and MLO view(s) were taken. XCCL view(s) were taken of the right breast. Prior study comparison: December 21, 2017, bilateral MG 3d screening mammo w/cad. September 07, 2016, bilateral MG 3d screening mammo w/cad. There are benign appearing round, vascular calcifications bilaterally. Previous mammotome biopsy in the right breast. There is chronic nodularity bilaterally. There is no discrete abnormality. ASSESSMENT: Benign, BI-RAD 2 RECOMMENDATION: Routine screening mammogram of both breasts in 1 year.
== END | disposition home or self-care (01) ==
LOC: RADMAMWWP 09:44
PROVIDERS: ATTEND Obstetrics & Gynecology
DX: Z12.31 Encounter for screening mammogram for malignant neoplasm of breast (principal); M85.80 Other specified disorders of bone density and structure, unspecified site
CPT/HCPCS: 77063; 77067; 77080

== ENCOUNTER 2019-03-10 11:50 | Emergency (ER) | payer MEDICARE, BC ==
[2019-03-10] MEDS ORDERED: SODIUM CHLORIDE 0.9% 1,000 ML IV STA (12:06)
[2019-03-10] MEDS ORDERED: ONDANSETRON 4 MG/2 ML VIAL IVP STA (12:06)
[2019-03-10] MEDS ORDERED: MECLIZINE 12.5 MG TAB PO STA (12:19)
--- NOTE | 2019-03-10 12:21 | ED ---
General Adult HPI - General Chief complaint: Nausea/Vomiting/Diarrhea Stated complaint: Vomiting Time Seen by Provider: 03/10/19 11:55 Source: EMS Mode of arrival: EMS - History of Present Illness Initial comments: Dictation was produced using [employer] dictation software. please excuse any grammatical, word or spelling errors. Chief Complaint: 73-year-old female past medical history of GERD, dyslipidemia and hypertension presents with episode of vertigo. History of Present Illness: 73-year-old female she complains of an acute episode of vertigo. She was at breakfast when she finished her meal. She was at the [employer] when she began feeling sudden onset dizziness she describes it as a sensation of the room spinning. Patient states that her symptoms were so severe that she had to slowly lie down to get on the ground. EMS was called patient is brought to the emergency department. Patient states she also has some mild suprapubic abdominal pain. Denies any vaginal discharge. No urinary symptoms. She has a history of inferior abdominal pain that improved with bowel movement. Patient has any chest pain or shortness of breath. She states that since being in the emergency department her symptoms are improved although she still feels slightly nauseated. The ROS documented in this emergency department record has been reviewed and confirmed by me. Those systems with pertinent positive or negative responses have been documented in the HPI. All other systems are other negative and/or noncontributory. PHYSICAL EXAM: General Impression: Alert and oriented x3, not in acute distress HEENT: Normocephalic atraumatic, extra-ocular movements intact, pupils equal and reactive to light bilaterally, mucous membranes moist. Cardiovascular: Heart regular rate and rhythm, S1&S2 audible, no murmurs, rubs or gallops Chest: Lungs clear to auscultation bilaterally, no rhonchi, no wheeze, no rales Abdomen: Bowel sounds present, abdomen soft, non-tender, non-distended, no organomegaly Musculoskeletal: Pulses present and equal in all extremities, no peripheral edema Motor: no focal deficits noted Neurological: CN II-XII grossly intact, no focal motor or sensory deficits noted Skin: Intact with no visualized rashes Psych: Normal affect and mood ED course: 73-year-old female with chief complaint of vertigo. Vital signs upon arrival are within acceptable limits.Laboratory evaluation obtained. CBC, metabolic panel is unremarkable. Urinalysis is negative. Patient is given Zofran. She was offered Antivert however she refuses given that she is asymptomatic at this time. Patient ambulatory without complications. Medic ations were reviewed. Patient continues to be slightly bradycardic. She wants to be discharged. Patient clear for discharge. Repeat vitals were unremarkable. Patient advised follow-up with a primary care physician regarding her heart rate being in the 50s. Regardless, patient is normotensive and is asymptomatic. Return parameters discussed. Patient clear for discharge. At time of discharge patient is asymptomatic. All questions answered. EKG interpretation: Ventricular rate 51, sinus bradycardia, NH interval 166, QS 92, QTC 409. No NH prolongation, no QTC prolongation, no ST or T-wave changes noted. EKG compared to 09/15/2017 showing no changes. - Related Data Home Medications Medication Instructions Recorded Confirmed Atenolol [Tenormin] 25 mg PO DAILY 10/28/13 06/01/18 Multivitamins, Thera [Multivitamin 1 tab PO DAILY 01/13/16 06/01/18 (formulary)] Tolterodine Tartrate [Detrol LA] 4 mg PO DAILY 01/13/16 06/01/18 Aspirin [Adult Low Dose Aspirin EC] 81 mg PO DAILY 05/17/17 06/01/18 Esomeprazole Magnesium [NexIUM] 40 mg PO DAILY 06/01/18 06/01/18 Losartan Potassium [Cozaar] 100 mg PO DAILY 06/01/18 06/01/18 Pravastatin Sodium [Pravachol] 40 mg PO DAILY 06/01/18 06/01/18 Previous Rx's Medication Instructions Recorded Ondansetron Odt [Zofran ODT] 4 mg PO Q8HR PRN #10 tab 06/01/18 Allergies Allergy/AdvReac Type Severity Reaction Status Date / Time Penicillins Allergy Rash/Hives Verified 06/01/18 12:25 Review of Systems ROS Statement: Those systems with pertinent positive or pertinent negative responses have been documented in the HPI. ROS Other: All systems not noted in ROS Statement are negative. Past Medical History Past Medical History: GERD/Reflux, Hyperlipidemia, Hypertension Additional Past Medical History / Comment(s): cystocele with coil, hx migraines, hx ulcer, urinary leakage, AAA - pt states it is small and dr'manuel are just watching it History of Any Multi-Drug Resistant Organisms: None Reported Past Surgical History: Bladder Surgery, Cholecystectomy, Hernia Repair, Orthopedic Surgery, Tonsillectomy, Tubal Ligation Additional Past Surgical History / Comment(s): R eye surgery FOR RETINAL TEAR , Rt carpal tunnel release, BLADDER COIL Past Anesthesia/Blood Transfusion Reactions: Motion Sickness, Postoperative Nausea & Vomiting (PONV) Additional Past Anesthesia/Blood Transfusion Reaction / Comment(s): . Past Psychological History: No Psychological Hx Reported Smoking Status: Never smoker Past Alcohol Use History: None Reported Past Drug Use History: None Reported - Past Family History Brother(s) Family Medical History: Cancer Father Family Medical History: COPD Additional Family Medical History / Comment(s): FATHER IS AND PT UNSURE AT WHAT AGE HE . FATHER HAD ETOH ABUSE. Mother Family Medical History: Cancer Additional Family Medical History / Comment(s): MOTHER RECENTLY AT AGE 86YRS from CAD. HER CANCERS WERE OF THE BREAST AND THE BOWEL. Course Vital Signs 03/10/19 03/10/19 03/10/19 11:53 12:24 13:18 Temperature 98.3 F 97.9 F Pulse Rate 62 51 L 56 L Respiratory 18 16 18 Rate Blood Pressure 153/71 129/74 138/77 O2 Sat by Pulse 98 93 L 94 L Oximetry Medical Decision Making - Lab Data Result diagrams: 03/10/19 12:05 03/10/19 12:05 Lab Results 03/10/19 03/10/19 03/10/19 Range/Units 12:05 12:05 14:00 WBC 6.7 (3.8-10.6) k/uL RBC 4.59 (3.80-5.40) m/uL Hgb 13.2 (11.4-16.0) gm/dL Hct 39.6 (34.0-46.0) % MCV 86.2 (80.0-100.0) fL MCH 28.7 (25.0-35.0) pg MCHC 33.3 (31.0-37.0) g/dL RDW 13.3 (11.5-15.5) % Plt Count 213 (150-450) k/uL Neutrophils % 61 % Lymphocytes % 29 % Monocytes % 5 % Eosinophils % 2 % Basophils % 1 % Neutrophils # 4.1 (1.3-7.7) k/uL Lymphocytes # 1.9 (1.0-4.8) k/uL Monocytes # 0.4 (0-1.0) k/uL Eosinophils # 0.1 (0-0.7) k/uL Basophils # 0.1 (0-0.2) k/uL Sodium 139 (137-145) mmol/L Potassium 4.1 (3.5-5.1) mmol/L Chloride 106 (98-107) mmol/L Carbon Dioxide 24 (22-30) mmol/L Anion Gap 9 mmol/L BUN 14 (7-17) mg/dL Creatinine 0.63 (0.52-1.04) mg/dL Est GFR (CKD-EPI)AfAm >90 (>60 ml/min/1.73 sqM) Est GFR (CKD-EPI)NonAf 89 (>60 ml/min/1.73 sqM) Glucose 123 H (74-99) mg/dL Calcium 9.4 (8.4-10.2) mg/dL Total Bilirubin 0.6 (0.2-1.3) mg/dL AST 24 (14-36) U/L ALT 26 (9-52) U/L Alkaline Phosphatase 104 (38-126) U/L Total Protein 6.8 (6.3-8.2) g/dL Albumin 4.0 (3.5-5.0) g/dL Lipase 51 (23-300) U/L Urine Color Light Yellow Urine Appearance Clear (Clear) Urine pH 7.0 (5.0-8.0) Ur Specific [place] 1.006 (1.001-1.035) Urine Protein Negative (Negative) Urine Glucose (UA) Negative (Negative) Urine Ketones Negative (Negative) Urine Blood Negative (Negative) Urine Nitrite Negative (Negative) Urine Bilirubin Negative (Negative) Urine Urobilinogen <2.0 (<2.0) mg/dL Ur Leukocyte Esterase Negative (Negative) Disposition Clinical Impression: Vertigo Disposition: HOME SELF-CARE Condition: Good Instructions (If sedation given, give patient instructions): Vertigo (ED) Is patient prescribed a controlled substance at d/c from ED?: No Referrals: Chacorta Romero MD [Primary Care Provider] - 1-2 days Time of Disposition: 15:07
[2019-03-10 12:25] LABS: Basophils # (A) 0.1 k/uL (0-0.2); Basophils % (A) 1 %; Eosinophils # (A) 0.1 k/uL (0-0.7); Eosinophils % (A) 2 %; HCT 39.6 % (34.0-46.0); HGB 13.2 gm/dL (11.4-16.0); Lymphocytes # (A) 1.9 k/uL (1.0-4.8); Lymphocytes % (A) 29 %; MCH 28.7 pg (25.0-35.0); MCHC 33.3 g/dL (31.0-37.0); MCV 86.2 fL (80.0-100.0); Mean Platelet Volume 6.3; Monocytes # (A) 0.4 k/uL (0-1.0); Monocytes % (A) 5 %; Neutrophils # (A) 4.1 k/uL (1.3-7.7); Neutrophils % (A) 61 %; Platelet Count 213 k/uL (150-450); RBC 4.59 m/uL (3.80-5.40); RDW 13.3 % (11.5-15.5); WBC 6.7 k/uL (3.8-10.6)
[2019-03-10 12:35] LABS: ALT 26 U/L (9-52); AST 24 U/L (14-36); African American GFR (CKD) >90 (>60 ml/min/1.73 sqM); Alkaline Phosphatase 104 U/L (38-126); Anion Gap 9 mmol/L; Blood Urea Nitrogen 14 mg/dL (7-17); Calcium 9.4 mg/dL (8.4-10.2); Carbon Dioxide 24 mmol/L (22-30); Chloride 106 mmol/L (98-107); Glucose 123 mg/dL (74-99); Non-African American GFR(CKD) 89 (>60 ml/min/1.73 sqM); Potassium 4.1 mmol/L (3.5-5.1); Sodium 139 mmol/L (137-145); Total Bilirubin 0.6 mg/dL (0.2-1.3); Total Protein 6.8 g/dL (6.3-8.2)
--- NOTE | 2019-03-10 13:13 | XR ---
EXAMINATION TYPE: XR abdomen acute w cxr DATE OF EXAM: 03/10/2019 COMPARISON: NONE HISTORY: Pain TECHNIQUE: Single view of the chest and 2 views of the abdomen are submitted. FINDINGS: Single view of the chest fails demonstrate evidence for acute pulmonary disease. There is no evidence for pneumoperitoneum. The bowel gas pattern is unremarkable as there is air throughout nondilated small and large bowel. No sizeable air fluid levels.No mass effects are seen. No unusual calcifications. IMPRESSION: 1. Unremarkable study.
[2019-03-10 15:00] LABS: Appearance,Urine Clear (Clear); Bilirubin,Urine Negative (Negative); Blood,Urine Negative (Negative); Color,Urine Light Yellow; Glucose,Urine (UA) Negative (Negative); Ketones,Urine Negative (Negative); Leukocyte Esterase,Urine Negative (Negative); Nitrite,Urine Negative (Negative); Protein,Urine Negative (Negative); Specific Gravity,Urine 1.006 (1.001-1.035); Urobilinogen,Urine <2.0 mg/dL (<2.0)
[2019-03-10 15:28] VITALS: BP 146/77; PULSE 60; RESP 16; TEMP 98
== END 2019-03-10 15:35 | disposition home or self-care (01) ==
LOC: EC 11:50
DX: R42 Dizziness and giddiness (principal); K21.9 Gastro-esophageal reflux disease without esophagitis; I10 Essential (primary) hypertension; E78.5 Hyperlipidemia, unspecified; R00.1 Bradycardia, unspecified; Z79.82 Long term (current) use of aspirin; Z79.899 Other long term (current) drug therapy; Z88.0 Allergy status to penicillin
CPT/HCPCS: 36415; 93005; 80053; 83690; 85025; 81003; 74022; 99284; 96374; 96361 ×2; J2405

== ENCOUNTER → 2019-03-24 | Outpatient (CLI) | payer MEDICARE, BC ==
[2019-03-24 18:19] LABS: African American GFR (CKD) 99.6 (60.0-200.0); Albumin 4.2 g/dL (3.80-4.90); Albumin/Globulin Ratio 2.21 (1.60-3.17); Anion Gap 7.1 mmol/L (4.00-12.00); BUN/Creat Ratio 22.86 Ratio (12.00-20.00); Calcium 9.4 mg/dL (8.7-10.3); Carbon Dioxide 30.9 mmol/L (21.6-31.8); Globulin 1.9 g/dL (1.6-3.3); Potassium 4.8 mmol/L (3.5-5.5); Total Bilirubin 0.2 mg/dL (0.2-1.2); Total Protein 6.1 g/dL (6.2-8.2)
== END | disposition home or self-care (01) ==
LOC: LABWHC1 12:38
PROVIDERS: ATTEND Internal Medicine Clinical Cardiac Electrophysiology
DX: I10 Essential (primary) hypertension (principal); I48.91 Unspecified atrial fibrillation; I49.5 Sick sinus syndrome
CPT/HCPCS: 36415; 80053; 84443

== ENCOUNTER → 2019-05-04 | Outpatient (CLI) | payer MEDICARE, BC ==
[2019-05-04 15:51] LABS: HCT 39.2 % (34.0-46.0); HGB 13.1 gm/dL (11.4-16.0); MCH 29.1 pg (25.0-35.0); MCHC 33.4 g/dL (31.0-37.0); MCV 87.2 fL (80.0-100.0); Mean Platelet Volume 7.4; Platelet Count 259 k/uL (150-450); RDW 13.1 % (11.5-15.5); WBC 6.4 k/uL (3.8-10.6)
[2019-05-04 16:02] LABS: African American GFR (CKD) >90 (>60 ml/min/1.73 sqM); Anion Gap 5 mmol/L; Blood Urea Nitrogen 19 mg/dL (7-17); Carbon Dioxide 30 mmol/L (22-30); Chloride 105 mmol/L (98-107); Non-African American GFR(CKD) 85 (>60 ml/min/1.73 sqM); Potassium 4.2 mmol/L (3.5-5.1); Sodium 140 mmol/L (137-145)
== END | disposition home or self-care (01) ==
LOC: LABPAT 15:03
PROVIDERS: ATTEND Internal Medicine Clinical Cardiac Electrophysiology
DX: Z01.812 Encounter for preprocedural laboratory examination (principal)
CPT/HCPCS: 36415; 80051; 82565; 84520; 85027

== ENCOUNTER 2019-05-08 05:50 | Day surgery (SDC) | payer MEDICARE, BC ==
[2019-05-03 16:19] VITALS: BMI 27.4
[2019-05-08] MEDS ORDERED: SODIUM CHLORIDE 0.9% 1,000 ML IV SCH ×2 (05:55)
[2019-05-08] MEDS ORDERED: CLINDAMYCIN 600 MG in SODIUM CHLORIDE 0.9% IRRIGATIO 250 ML IRRIGATION ONE (05:55)
[2019-05-08] MEDS ORDERED: PROPOFOL 10 MG/ML 20 ML VIAL IV ONE (07:13)
[2019-05-08] MEDS ORDERED: MIDAZOLAM 2 MG/2 ML VIAL ONE (07:13)
[2019-05-08] MEDS ORDERED: fentaNYL (PF) 50 MCG/ML 2 ML AMP ONE (07:13)
[2019-05-08] MEDS ORDERED: ePHEDrine SULFATE/0.9% NACL/PF 50 MG/5 ML SYRINGE IV ONE (07:13)
[2019-05-08] MEDS ORDERED: IOPAMIDOL-370 50ML BTL INJ ONE (07:31)
[2019-05-08] MEDS ORDERED: ACETAMINOPHEN TAB 325 MG TAB PO PRN (07:32)
[2019-05-08] MEDS ORDERED: HYDROcodone/APAP 5-325MG 1 EACH TAB PO PRN (07:32)
[2019-05-08] MEDS: CLINDAMYCIN 900 MG in DEXTROSE 5% IN WATER 50 ML IVPB ONE ×4 (07:32→07:33)
[2019-05-08] MEDS ORDERED: LIDOCAINE 1% INJ 10MG/ML (20 ML MDV) ONE (07:41)
[2019-05-08] MEDS ORDERED: LIDOCAINE 1% INJ 10MG/ML (20 ML MDV) SQ ONE ×2 (07:50→08:01)
[2019-05-08] MEDS ORDERED: ACETAMINOPHEN IV (For NPO) 1,000 MG in EMPTY BAG 1 BAG IVPB ONE (09:30)
[2019-05-08] MEDS ORDERED: OXYBUTYNIN XL 5 MG TAB.ER.24 PO SCH (10:00)
[2019-05-08] MEDS ORDERED: PRAVASTATIN SODIUM 40 MG TAB PO SCH (10:00)
[2019-05-08] MEDS ORDERED: ASPIRIN 81 MG PO SCH (10:00)
[2019-05-08] MEDS ORDERED: ATENOLOL 50 MG TAB PO SCH (10:00)
[2019-05-08] MEDS ORDERED: LOSARTAN 50 MG TAB PO SCH (10:00)
--- NOTE | 2019-05-08 11:56 | P.PRLE ---
RE: Maddi Shipman Dear Chacorta Mrs. Shipman has symptomatic sick sinus syndrome and she underwent successful dual-chamber pacemaker implantation for its management She will restart beta blockers now and continue her antihypertensive therapy Thank you for entrusting me with the care of the patient Warm regards Sincerely Subhash Glover
--- NOTE | 2019-05-08 12:05 | P.PCN ---
Preoperative Diagnosis: Procedure was performed under MAC, with STAFF TOXICOLOGIST/anesthesia
--- NOTE | 2019-05-08 12:36 | CE ---
CARDIAC ELECTROPHYSIOLOGY REPORT Maddi Shipman is a 73-year-old female with symptomatic sick sinus syndrome. She underwent a dual-chamber pacemaker implantation. The patient was brought to the EP lab in a fasting state. Written informed consent was obtained prior to the procedure. The left shoulder area was prepped and draped as per protocol and 1% lidocaine was used for local anesthesia. IV antibiotics were administered. The left pectoral region was prepped and draped as per protocol. A 4 cm incision was made and carried down to the level of the pectoralis muscle. A subfascial pocket was made. Hemostasis was assured. The left axillary vein was accessed at 2 separate points under fluoroscopy and via appropriately-sized introducer sheaths, 2 leads were positioned in the right heart. The right atrial lead was [employer], model #[id number], 46 cm in length and serial #[id number]. Initially, the P waves were greater than 3 mV, but at the end of this procedure, the P waves were 1.8 mV without any obvious change on fluoroscopy. Pacing impedance 440 ohms and excellent pacing threshold 0.4 V at 0.5 milliseconds. This was a passive lead. The RV lead was a screw-in lead, [employer], model #[id number], 58 cm in length and serial #[id number]. R-waves 7 mV pacing impedance 980 ohms, pacing threshold 0.75 V at 0.4 milliseconds. Ten volt test was negative. Both leads were secured to the underlying pectoralis fascia using 2 nonabsorbable sutures. Pocket was irrigated with antibiotic solution. Leads were connected to the generator ([employer] model #QC2980, serial #[id number]. The lead and generator were then placed in the subfascial pocket. The wound was closed in 3 layers and dressed per protocol. RESULT: Successful dual-chamber pacemaker implantation for sick sinus syndrome. Pacemaker was programmed to DDD mode at 50 ppm with VIP mode turned on. Please note that the patient had a very large recess in the innominate SVC junction as a result of which the lead would position itself within this recess after the stylet was removed. This will result in a loss of in the right atrium. However, the pacing thresholds remained excellent. Increased procedural services on account of this anatomical variation with the large venous recess in the SVC innominate junction, the RV lead had to be positioned several times and the atrial lead had to be positioned multiple times to ensure that the thresholds were excellent. However, this was an unavoidable effect on the leads once the stylet was removed. MAIRA / BEKA: [id number] /
[2019-05-08] MEDS: LACTATED RINGERS 1,000 ML IV SCH (18:58)
[2019-05-09] MEDS: LACTATED RINGERS 1,000 ML IV SCH (06:17)
--- NOTE | 2019-05-09 06:40 | XR ---
EXAMINATION TYPE: XR chest 2V DATE OF EXAM: 05/09/2019 COMPARISON: Chest x-ray September 14, 2017 and March 10, 2019 HISTORY: Lead placement check. TECHNIQUE: Frontal and lateral views of the chest are obtained. FINDINGS: There is a new dual-lead pacemaker with leads terminating in right atrium and right ventric le. Cardiac silhouette size is stable and upper limits of normal with atherosclerotic thoracic aorta. There is background chronic parenchymal change without suspicious new focal airspace opacity, pleura l effusion, or pneumothorax seen bilaterally. Cholecystectomy clips are redemonstrated. Osseous struc tures remain demineralized. IMPRESSION: No evidence of complication related to dual-lead pacemaker placement with leads in appro priate position.
[2019-05-09] MEDS ORDERED: ATENOLOL 50 MG TAB PO SCH (09:00)
[2019-05-09] MEDS ORDERED: LOSARTAN 50 MG TAB PO SCH (09:00)
[2019-05-09] MEDS ORDERED: ASPIRIN 81 MG PO SCH (09:00)
[2019-05-09] MEDS ORDERED: OXYBUTYNIN XL 5 MG TAB.ER.24 PO SCH (09:00)
[2019-05-09] MEDS ORDERED: PRAVASTATIN SODIUM 40 MG TAB PO SCH (09:00)
[2019-05-09 11:52] VITALS: BP 134/82; PULSE 55; RESP 16; TEMP 98.2
--- NOTE | 2019-05-09 13:47 | P.DS ---
Providers Attending physician: Subhash Glover Primary care physician: [facility] Course: Patient is a 73-year-old female with symptomatic sick sinus syndrome, hypertension, dyslipidemia who came in for management of her sick sinus syndrome. Yesterday she underwent a dual-chamber pacemaker implantation. She has done well postprocedure. Patient seen and examined sitting up in bed. She does complain of some soreness over the incision site. Denies any chest pain or shortness of breath. She has been up walking to the restroom, no dizziness. No palpitations. Device check this morning shows normally functioning pacemaker, thresholds and impedances stable Chest x-ray shows no evidence of pneumothorax Most recent labs reviewed, WBC 6.4, hemoglobin 13.1, platelet 259, potassium 4.2, BUN 19, creatinine 0.71 Most recent TSH within normal limits Patient is afebrile, pulse in the 60s, respirations 16, blood pressure 1 3482, oxygen saturation 96% on room air Patient seen and examined resting comfortably in bed, in no acute distress Lungs clear to auscultation bilaterally Heart is regular, normal S1-S2, no audible murmurs Dressing clean dry and intact No elevated JVD No lower extremity edema Abdomen soft Impression Symptomatic sinus syndrome status post dual-chamber pacemaker implantation Dyslipidemia Hypertension Plan Detailed discussion with the patient regarding postoperative instructions and activity limitations Continue current cardiac medication regimen including atenolol 50 mg daily, losartan 100 mg daily, Pravachol and aspirin Follow-up with the device clinic in 5 days Plan - Discharge Summary Discharge Rx Participant: No New Discharge Prescriptions: New Atenolol [Tenormin] 50 mg PO DAILY #90 tab Continue Tolterodine Tartrate [Detrol LA] 4 mg PO DAILY Multivitamins, Thera [Multivitamin (formulary)] 1 tab PO DAILY Aspirin [Adult Low Dose Aspirin EC] 81 mg PO DAILY Pravastatin Sodium [Pravachol] 40 mg PO DAILY Esomeprazole Magnesium [NexIUM] 40 mg PO DAILY Losartan Potassium [Cozaar] 100 mg PO DAILY Discontinued Atenolol [Tenormin] 25 mg PO DAILY Discharge Medication List Multivitamins, Thera [Multivitamin (formulary)] 1 tab PO DAILY 01/13/16 [History] Tolterodine Tartrate [Detrol LA] 4 mg PO DAILY 01/13/16 [History] Aspirin [Adult Low Dose Aspirin EC] 81 mg PO DAILY 05/17/17 [History] Esomeprazole Magnesium [NexIUM] 40 mg PO DAILY 06/01/18 [History] Losartan Potassium [Cozaar] 100 mg PO DAILY 06/01/18 [History] Pravastatin Sodium [Pravachol] 40 mg PO DAILY 06/01/18 [History] Atenolol [Tenormin] 50 mg PO DAILY #90 tab 05/09/19 [Rx] Follow up Appointment(s)/Referral(s): [facility] [Provider Group] - 05/16/19 10:00 am (Wednesday -device check only) Subhash Glover MD [STAFF PHYSICIAN] - 08/16/19 3:00 pm (Wednesday -previously scheduled appointment) Patient Instructions/Handouts: Pacemaker (DC) Activity/Diet/Wound Care/Special Instructions: PATIENT EDUCATION MATERIAL Instructions following a heart rhythm device implant. 1. Keep dressing DRY for 5 DAYS. You may cover the area with Saran or Cling Wrap, prior to a shower. 2. The dressing will be removed in the Device Clinic at [facility]. Absorbable sutures were used to close the wound. 3. Avoid raising the left arm above the shoulder level. 4 week restriction 4. Avoid arm movements, like backscratching, rubbing the head, or pulling on a cord. 4 weeks restriction 5. Gentle range of motion movements of the shoulder, closest to the incision should be performed to avoid a frozen shoulder. (Pendulum exercises of the shoulder) 6. The opposite arm may be used freely. 7. Avoid driving for 7 days. 8. Avoid activities such as golfing, swimming, weed whacking, lifting more than 10 pounds weight, bowling, gymnastics and weight training/lifting. (6 weeks restriction) 9. Activities such as wood chopping with an axe, pull-ups in the gymnasium, power lifting, arc-welding, being close to home induction cooktops will always be a problem. 10. Arm sling is only a reminder not to raise the arm above the head. You do not need to keep the arm completely immobilized. Your free to move the arm and use it and for normal activities. In case of any problems, please call [facility], [place], @ [phone], Attention: Device Clinic Device clinic follow-up in 5 days Follow-up with [facility] in 2-3 months Increase atenolol to 50 mg daily Discharge Disposition: HOME SELF-CARE
== END 2019-05-09 13:13 | disposition home or self-care (01) ==
LOC: CATHEP 05:50 → 3SCARD 08:49 → CATHEP 05-09 13:13
PROVIDERS: ATTEND Internal Medicine Clinical Cardiac Electrophysiology
DX: I49.5 Sick sinus syndrome (principal); E78.5 Hyperlipidemia, unspecified; I10 Essential (primary) hypertension; K21.9 Gastro-esophageal reflux disease without esophagitis; E78.00 Pure hypercholesterolemia, unspecified; Z97.2 Presence of dental prosthetic device (complete) (partial); Z79.82 Long term (current) use of aspirin; Z79.899 Other long term (current) drug therapy; Z88.0 Allergy status to penicillin; Z90.49 Acquired absence of other specified parts of digestive tract; Z90.89 Acquired absence of other organs; Z98.890 Other specified postprocedural states; Z87.898 Personal history of other specified conditions; Z82.49 Family history of ischemic heart disease and other diseases of the circulatory system
CPT/HCPCS: 33208; 71046; C1769; C1892; C1898 ×3; C1785; J2250; J0690 ×2; J2001; J3010; J0131; J2704; Q9967

== ENCOUNTER 2019-05-20 14:34 | Observation (INO) | payer MEDICARE, BC ==
[2019-05-20] MEDS ORDERED: MECLIZINE 12.5 MG TAB PO STA (15:08)
[2019-05-20] MEDS ORDERED: SODIUM CHLORIDE 0.9% 500 ML 500 ML IV STA (15:08)
[2019-05-20] MEDS ORDERED: METOCLOPRAMIDE 5 MG/ML 2 ML VIAL IVP STA (15:11)
[2019-05-20 15:32] LABS: Basophils # (A) 0.1 k/uL (0-0.2); Basophils % (A) 1 %; Eosinophils # (A) 0.2 k/uL (0-0.7); Eosinophils % (A) 2 %; HGB 12.8 gm/dL (11.4-16.0); Lymphocytes # (A) 1.8 k/uL (1.0-4.8); Lymphocytes % (A) 24 %; MCH 27.9 pg (25.0-35.0); MCHC 32.8 g/dL (31.0-37.0); MCV 85.3 fL (80.0-100.0); Mean Platelet Volume 7.3; Monocytes # (A) 0.4 k/uL (0-1.0); Monocytes % (A) 5 %; Neutrophils % (A) 67 %; Platelet Count 241 k/uL (150-450); RBC 4.57 m/uL (3.80-5.40); RDW 12.9 % (11.5-15.5); WBC 7.6 k/uL (3.8-10.6)
--- NOTE | 2019-05-20 15:32 | XR ---
EXAMINATION TYPE: XR chest 1V portable DATE OF EXAM: 05/20/2019 Comparison: 05/09/2019 Clinical History: 73-year-old female Near-syncope Findings: Left anterior chest wall pacemaker generator with right atrial and right ventricular leads. Heart nor mal size. Mild interstitial prominence and mild hyperinflation. No consolidation or pleural effusion. Impression: Possible underlying COPD. Clinically correlate. Otherwise, no acute cardiopulmonary process.
[2019-05-20 15:41] LABS: ALT 20 U/L (4-34); AST 23 U/L (14-36); African American GFR (CKD) >90 (>60 ml/min/1.73 sqM); Albumin 4.1 g/dL (3.5-5.0); Alkaline Phosphatase 118 U/L (38-126); Anion Gap 6 mmol/L; Blood Urea Nitrogen 12 mg/dL (7-17); Calcium 9.4 mg/dL (8.4-10.2); Carbon Dioxide 28 mmol/L (22-30); Chloride 106 mmol/L (98-107); Glucose 101 mg/dL (74-99); Non-African American GFR(CKD) 90 (>60 ml/min/1.73 sqM); Potassium 3.9 mmol/L (3.5-5.1); Sodium 140 mmol/L (137-145); Total Bilirubin 0.4 mg/dL (0.2-1.3); Total Protein 6.8 g/dL (6.3-8.2)
--- NOTE | 2019-05-20 16:06 | CT ---
EXAMINATION TYPE: CT brain wo con DATE OF EXAM: 05/20/2019 COMPARISON: 04/09/2016 HISTORY: 73-year-old female with dizziness TECHNIQUE: Examination was done in axial plane without intravenous contrast. Coronal and sagittal r econstructions performed. CT DLP: 1099.4 mGycm Automated exposure control for dose reduction was used. FINDINGS: There is no evidence of acute intracranial hemorrhage, acute ischemic changes, mass, mass-effect, or extra-axial fluid collection. There is no effacement of cerebral sulci or basal subarachnoid cister ns. There is no hydrocephalus. There is no midline shift. Galindo-white matter distinction is preserv ed. Leftward nasal septal deviation. Visualized paranasal sinuses and mastoid air cells appear well-pneum atized. Orbits and globes are intact. Right-sided scleral buckle. IMPRESSION: No acute intracranial abnormality seen.
--- NOTE | 2019-05-20 16:29 | ED ---
General Adult HPI - General Chief complaint: Dizziness Stated complaint: Dizziness Time Seen by Provider: 05/20/19 15:00 Source: patient, RN notes reviewed, old records reviewed Mode of arrival: wheelchair Limitations: no limitations - History of Present Illness Initial comments: 73-year-old presenting for evaluation of dizziness. Patient has recent pa cemaker placement for bradycardia. She states she had been doing quite well since discharge. Proximally one hour prior to arrival she states she became quite dizzy, states the room was spinning. Denies any chest pain, denied dizziness. No headache. No focal numbness or weakness. No abdominal pain. No fever. She had some nausea and vomiting. - Related Data Home Medications Medication Instructions Recorded Confirmed Multivitamins, Thera [Multivitamin 1 tab PO DAILY 01/13/16 05/03/19 (formulary)] Tolterodine Tartrate [Detrol LA] 4 mg PO DAILY 01/13/16 05/08/19 Aspirin [Adult Low Dose Aspirin EC] 81 mg PO DAILY 05/17/17 05/08/19 Esomeprazole Magnesium [NexIUM] 40 mg PO DAILY 06/01/18 05/08/19 Losartan Potassium [Cozaar] 100 mg PO DAILY 06/01/18 05/08/19 Pravastatin Sodium [Pravachol] 40 mg PO DAILY 06/01/18 05/08/19 Previous Rx's Medication Instructions Recorded Atenolol [Tenormin] 50 mg PO DAILY #90 tab 05/09/19 Allergies Allergy/AdvReac Type Severity Reaction Status Date / Time Penicillins Allergy Rash/Hives Verified 05/08/19 06:16 Review of Systems ROS Statement: Those systems with pertinent positive or pertinent negative responses have been documented in the HPI. ROS Other: All systems not noted in ROS Statement are negative. Past Medical History Past Medical History: GERD/Reflux, Hyperlipidemia, Hypertension, Syncope Additional Past Medical History / Comment(s): See Dr Glover H&P, cystocele with coil, hx migraines, hx ulcer, urinary leakage, Syncope feb- pt sent home with a holter monitor was found to be dolly- dual pacer placed 05/08/2019 History of Any Multi-Drug Resistant Organisms: None Reported Past Surgical History: Bladder Surgery, Cholecystectomy, Hernia Repair, Orthopedic Surgery, Pacemaker, Tonsillectomy, Tubal Ligation Additional Past Surgical History / Comment(s): R eye surgery FOR RETINAL TEAR , Rt carpal tunnel release, BLADDER COIL Past Anesthesia/Blood Transfusion Reactions: Motion Sickness, Postoperative Nausea & Vomiting (PONV) Additional Past Anesthesia/Blood Transfusion Reaction / Comment(s): . Type of Cardiac Device: Permanent Pacemaker Device Placement Date:: 05/08/2019 Past Psychological History: No Psychological Hx Reported Smoking Status: Never smoker Past Alcohol Use History: None Reported Past Drug Use History: None Reported - Past Family History Brother(s) Family Medical History: Cancer Mother Family Medical History: Cancer Additional Family Medical History / Comment(s): MOTHER RECENTLY AT AGE 86YRS from CAD. HER CANCERS WERE OF THE BREAST AND THE BOWEL. General Exam Limitations: no limitations General appearance: alert, in no apparent distress Head exam: Present: atraumatic, normocephalic Eye exam: Present: normal appearance, PERRL, EOMI. Absent: scleral icterus, nystagmus, periorbital swelling ENT exam: Present: mucous membranes dry Neck exam: Present: normal inspection, full ROM. Absent: tenderness, meningismus Respiratory exam: Present: normal lung sounds bilaterally. Absent: respiratory distress, wheezes Cardiovascular Exam: Present: normal rhythm, bradycardia GI/Abdominal exam: Present: soft. Absent: distended, tenderness, guarding, rebound Extremities exam: Present: normal inspection, normal capillary refill. Absent: pedal edema Neurological exam: Present: alert, oriented X3, CN II-XII intact. Absent: motor sensory deficit (No focal weakness, no ataxia) Psychiatric exam: Present: normal affect, normal mood Skin exam: Present: warm, dry, intact. Absent: cyanosis, diaphoretic Course Vital Signs 05/20/19 05/20/19 05/20/19 14:38 15:51 16:19 Temperature 98.8 F Pulse Rate 63 55 L 56 L Respiratory 18 18 18 Rate Blood Pressure 149/82 148/92 O2 Sat by Pulse 98 97 Oximetry EKG Findings - EKG Comments: EKG Findings:: EKG: Normal sinus rhythm, T-wave inversion in the anterior precordial leads unchanged from previous. Rate of 60, IA interval 162, QRS duration 92, QTC 412 Medical Decision Making - Medical Decision Making 73-year-old female presenting with vertigo, lightheadedness. Patient had recent pacemaker placement for bradycardia. She is in sinus rhythm with a rate around 55-60. According to her daughter her pacemaker has been placed at 50. Her vitals are stable. She has symptoms consistent with vertigo including room spinning, and nausea vomiting. No chest pain. Vitals are stable and she has a nonfocal neurologic exam. Workup is initiated, she has had CT which is negative for intracranial hemorrhage or mass effect. Chest x-ray obtained which shows COPD with no acute findings. She has a normal CBC, normal CMP, negative troponin, negative urinalysis. She has persistent vertigo and nausea. She will be kept in observation for symptomatic control. I did discuss case with manny gaming's primary care physician Dr. Lopez, he will accept admission. I do not suspect a cardiac cause of her symptoms however given the recent pacemaker placement and will have cardiology placed on consult. - Lab Data Result diagrams: 05/20/19 15:03 05/20/19 15:03 Lab Results 05/20/19 05/20/19 05/20/19 Range/Units 15:03 15:03 15:03 WBC 7.6 (3.8-10.6) k/uL RBC 4.57 (3.80-5.40) m/uL Hgb 12.8 (11.4-16.0) gm/dL Hct 39.0 (34.0-46.0) % MCV 85.3 (80.0-100.0) fL MCH 27.9 (25.0-35.0) pg MCHC 32.8 (31.0-37.0) g/dL RDW 12.9 (11.5-15.5) % Plt Count 241 (150-450) k/uL Neutrophils % 67 % Lymphocytes % 24 % Monocytes % 5 % Eosinophils % 2 % Basophils % 1 % Neutrophils # 5.0 (1.3-7.7) k/uL Lymphocytes # 1.8 (1.0-4.8) k/uL Monocytes # 0.4 (0-1.0) k/uL Eosinophils # 0.2 (0-0.7) k/uL Basophils # 0.1 (0-0.2) k/uL Sodium 140 (137-145) mmol/L Potassium 3.9 (3.5-5.1) mmol/L Chloride 106 (98-107) mmol/L Carbon Dioxide 28 (22-30) mmol/L Anion Gap 6 mmol/L BUN 12 (7-17) mg/dL Creatinine 0.62 (0.52-1.04) mg/dL Est GFR (CKD-EPI)AfAm >90 (>60 ml/min/1.73 sqM) Est GFR (CKD-EPI)NonAf 90 (>60 ml/min/1.73 sqM) Glucose 101 H (74-99) mg/dL Plasma Lactic Acid Edgar 1.0 (0.7-2.0) mmol/L Calcium 9.4 (8.4-10.2) mg/dL Total Bilirubin 0.4 (0.2-1.3) mg/dL AST 23 (14-36) U/L ALT 20 (4-34) U/L Alkaline Phosphatase 118 (38-126) U/L Troponin I (0.000-0.034) ng/mL Total Protein 6.8 (6.3-8.2) g/dL Albumin 4.1 (3.5-5.0) g/dL Urine Color Urine Appearance (Clear) Urine pH (5.0-8.0) Ur Specific [place] (1.001-1.035) Urine Protein (Negative) Urine Glucose (UA) (Negative) Urine Ketones (Negative) Urine Blood (Negative) Urine Nitrite (Negative) Urine Bilirubin (Negative) Urine Urobilinogen (<2.0) mg/dL Ur Leukocyte Esterase (Negative) 05/20/19 05/20/19 Range/Units 15:03 16:15 WBC (3.8-10.6) k/uL RBC (3.80-5.40) m/uL Hgb (11.4-16.0) gm/dL Hct (34.0-46.0) % MCV (80.0-100.0) fL MCH (25.0-35.0) pg MCHC (31.0-37.0) g/dL RDW (11.5-15.5) % Plt Count (150-450) k/uL Neutrophils % % Lymphocytes % % Monocytes % % Eosinophils % % Basophils % % Neutrophils # (1.3-7.7) k/uL Lymphocytes # (1.0-4.8) k/uL Monocytes # (0-1.0) k/uL Eosinophils # (0-0.7) k/uL Basophils # (0-0.2) k/uL Sodium (137-145) mmol/L Potassium (3.5-5.1) mmol/L Chloride (98-107) mmol/L Carbon Dioxide (22-30) mmol/L Anion Gap mmol/L BUN (7-17) mg/dL Creatinine (0.52-1.04) mg/dL Est GFR (CKD-EPI)AfAm (>60 ml/min/1.73 sqM) Est GFR (CKD-EPI)NonAf (>60 ml/min/1.73 sqM) Glucose (74-99) mg/dL Plasma Lactic Acid Edgar (0.7-2.0) mmol/L Calcium (8.4-10.2) mg/dL Total Bilirubin (0.2-1.3) mg/dL AST (14-36) U/L ALT (4-34) U/L Alkaline Phosphatase (38-126) U/L Troponin I <0.012 (0.000-0.034) ng/mL Total Protein (6.3-8.2) g/dL Albumin (3.5-5.0) g/dL Urine Color Light Yellow Urine Appearance Clear (Clear) Urine pH 8.0 (5.0-8.0) Ur Specific [place] 1.006 (1.001-1.035) Urine Protein Negative (Negative) Urine Glucose (UA) Negative (Negative) Urine Ketones Negative (Negative) Urine Blood Negative (Negative) Urine Nitrite Negative (Negative) Urine Bilirubin Negative (Negative) Urine Urobilinogen <2.0 (<2.0) mg/dL Ur Leukocyte Esterase Negative (Negative) Disposition Clinical Impression: Vertigo, Nausea & vomiting Disposition: [facility] Condition: Stable Is patient prescribed a controlled substance at d/c from ED?: No Referrals: Chacorta Romero MD [Primary Care Provider] - 1-2 days Decision to Admit Reason: Admit from EC Decision Date: 05/20/19 Decision Time: 17:19
[2019-05-20 16:53] LABS: Appearance,Urine Clear (Clear); Bilirubin,Urine Negative (Negative); Blood,Urine Negative (Negative); Color,Urine Light Yellow; Glucose,Urine (UA) Negative (Negative); Ketones,Urine Negative (Negative); Leukocyte Esterase,Urine Negative (Negative); Nitrite,Urine Negative (Negative); Protein,Urine Negative (Negative); Specific Gravity,Urine 1.006 (1.001-1.035); Urobilinogen,Urine <2.0 mg/dL (<2.0)
[2019-05-20] MEDS ORDERED: NALOXONE 0.4 MG/ML 1 ML VIAL IV PRN (17:14)
[2019-05-20] MEDS ORDERED: ONDANSETRON 4 MG/2 ML VIAL IVP PRN (17:14)
[2019-05-20] MEDS ORDERED: ALPRAZolam 0.25 MG TAB PO PRN (17:14)
[2019-05-20] MEDS ORDERED: ACETAMINOPHEN TAB 325 MG TAB PO PRN (17:14)
[2019-05-20] MEDS ORDERED: MECLIZINE 25 MG TAB PO PRN (17:16)
[2019-05-20 18:41] VITALS: RESP 18
[2019-05-20] MEDS: FAMOTIDINE 20 MG TAB PO SCH (20:02)
[2019-05-20] MEDS: LOSARTAN 50 MG TAB PO SCH (23:16)
[2019-05-21] MEDS ORDERED: PANTOPRAZOLE 40 MG TABLET PO SCH (07:30)
[2019-05-21] MEDS ORDERED: ASPIRIN 81 MG PO SCH (09:00)
[2019-05-21] MEDS ORDERED: ATENOLOL 50 MG TAB PO SCH (09:00)
[2019-05-21] MEDS ORDERED: OXYBUTYNIN XL 5 MG TAB.ER.24 PO SCH (09:00)
[2019-05-21] MEDS ORDERED: PRAVASTATIN SODIUM 40 MG TAB PO SCH (09:00)
[2019-05-21] MEDS: FAMOTIDINE 20 MG TAB PO SCH (10:17)
[2019-05-21] MEDS: LOSARTAN 50 MG TAB PO SCH (10:18)
--- NOTE | 2019-05-21 11:14 | P.HPIM ---
History of Present Illness H&P Date: 05/21/19 Chief Complaint: Dizziness, history of intermittent benign positional vertigo 73-year-old female well-known to our practice who presented to the emergency room secondary to profound dizziness, patient recently had a pacemaker placed for bradycardia and expressed concern that this dizziness she was experiencing may be associated with the pacemaker and/or bradycardia. Patient states she been doing quite well since discharge. Stage she became profoundly dizzy and spinning. Approximately hour prior to arrival at the emergency room. Denies chest pain denies headache denies weakness denies abdominal pain denies nausea denies fever Review of Systems Constitutional: Reports as per HPI Ears, nose, mouth and throat: Reports as per HPI Cardiovascular: Reports as per HPI (Denies chest pain and or shortness of breath) Respiratory: Reports as per HPI Gastrointestinal: Reports as per HPI Genitourinary: Reports as per HPI Menstruation: Reports as per HPI Musculoskeletal: Reports as per HPI Integumentary: Reports as per HPI Neurological: Reports vertigo Psychiatric: Reports as per HPI Endocrine: Reports as per HPI Hematologic/Lymphatic: Reports as per HPI Allergic/Immunologic: Reports as per HPI Past Medical History Past Medical History: GERD/Reflux, Hyperlipidemia, Hypertension, Syncope Additional Past Medical History / Comment(s): See Dr Glover H&P, cystocele with coil, hx migraines, hx ulcer, urinary leakage, Syncope feb- pt sent home with a holter monitor was found to be dolly- dual pacer placed 05/08/2019 History of Any Multi-Drug Resistant Organisms: None Reported Past Surgical History: Bladder Surgery, Cholecystectomy, Hernia Repair, Orthopedic Surgery, Pacemaker, Tonsillectomy, Tubal Ligation Additional Past Surgical History / Comment(s): R eye surgery FOR RETINAL TEAR , Rt carpal tunnel release, BLADDER COIL Past Anesthesia/Blood Transfusion Reactions: Motion Sickness, Postoperative Nausea & Vomiting (PONV) Additional Past Anesthesia/Blood Transfusion Reaction / Comment(s): . Type of Cardiac Device: Permanent Pacemaker Device Placement Date:: 05/08/2019 Past Psychological History: No Psychological Hx Reported Additional Psychological History / Comment(s): . Smoking Status: Never smoker Past Alcohol Use History: None Reported Past Drug Use History: None Reported - Past Family History Brother(s) Family Medical History: Cancer Mother Family Medical History: Cancer Additional Family Medical History / Comment(s): MOTHER RECENTLY AT AGE 86YRS from CAD. HER CANCERS WERE OF THE BREAST AND THE BOWEL. Medications and Allergies Home Medications Medication Instructions Recorded Confirmed Type Tolterodine Tartrate [Detrol LA] 4 mg PO DAILY 01/13/16 05/20/19 History Aspirin [Adult Low Dose Aspirin EC] 81 mg PO DAILY 05/17/17 05/20/19 History Esomeprazole Magnesium [NexIUM] 40 mg PO DAILY 06/01/18 05/20/19 History Pravastatin Sodium [Pravachol] 40 mg PO DAILY 06/01/18 05/20/19 History Atenolol [Tenormin] 50 mg PO DAILY #90 tab 05/09/19 05/20/19 Rx Losartan Potassium [Cozaar] 50 mg PO BID 05/20/19 05/20/19 History Allergies Allergy/AdvReac Type Severity Reaction Status Date / Time Penicillins Allergy Rash/Hives Verified 05/20/19 18:21 Physical Exam Osteopathic Statement: *. No significant issues noted on an osteopathic structural exam other than those noted in the History and Physical/Consult. Vitals: Vital Signs Temp Pulse Pulse Resp BP BP Pulse Ox 05/21/19 07:44 97.6 F 50 L 18 106/59 92 L 05/21/19 05:00 98.1 F 54 L 18 97/58 97 05/21/19 04:00 57 L 18 05/20/19 23:52 57 L 18 05/20/19 23:35 98.0 F 57 L 18 113/61 95 05/20/19 20:00 54 L 18 05/20/19 18:40 98.1 F 54 L 18 164/93 97 05/20/19 17:43 98.2 F 58 L 16 135/79 95 05/20/19 16:19 56 L 18 148/92 97 05/20/19 15:51 55 L 18 05/20/19 14:38 98.8 F 63 18 149/82 98 Intake and Output 05/20/19 05/21/19 05/21/19 22:59 06:59 14:59 Other: # Voids 1 2 Weight 71.668 kg 70 kg General: [Patient awake, alert and oriented times 3. Patient in no acute distress.] HEENT: [PERRL. EOMI. No pharyngeal erythema or exudate.] Neck: [No adenopathy.] Cardiac: [Heart regular in rate and rhythm. No S3. No S4. No clicks, rubs. No murmur Healing incision upper left chest pocket for pacer Lungs: [Clear to auscultation bilaterally.] Abdomen: [No mass. No organomegaly. Bowel sounds presnt and normoactive in all 4 quadrants.] Extremes: [No edema no cyanosis no claudication normal pulses] : Normal female genitalia Musculoskeletal: [No joint erythema, edema or tenderness.] Skin: [No rash.] Neurologic: [No lateralizing deficits. CN II - XII grossly intact.] Lymphatic: [No adenopathy.] Results CBC & Chem 7: 05/20/19 15:03 05/20/19 15:03 Labs: Abnormal Lab Results - Last 24 Hours (Table) 05/20/19 Range/Units 15:03 Glucose 101 H (74-99) mg/dL Thrombosis Risk Factor Assmnt - Choose All That Apply Any of the Below Risk Factors Present?: Yes Each Factor Represents 1 point: Obesity (BMI >25) Other Risk Factors: Yes Each Risk Factor Represents 2 Points: Age 61-74 years Thrombosis Risk Factor Assessment Total Risk Factor Score: 3 Thrombosis Risk Factor Assessment Level: Moderate Risk Assessment and Plan (1) Vertigo Narrative/Plan: Patient has had infrequent episodic benign positional vertigo in the past Current Visit: Yes Status: Acute Code(s): R42 - DIZZINESS AND GIDDINESS SNOMED Code(s): 999716955 (2) Dehydration Narrative/Plan: Drinks very little free water In fact admits to not being able to drink water that doesn't have some flavoring and Current Visit: No Status: Acute Code(s): E86.0 - DEHYDRATION SNOMED Code(s): 40315852 Plan: Cardiology neurology consult was obtained Negative troponins 3 no evidence of bradycardia arrhythmia Suspect benign positional vertigo secondary to dehydration Discussed consumption of free water on a regular basis at home Discussed the patient not partake of any antihistamines or [id number] meds without talking to Dr. Romero or myself Will discharge patient home at this time with follow-up instructions for Wednesday or Wednesday next week Time with Patient: Greater than 30
--- NOTE | 2019-05-21 11:18 | P.DS ---
Providers Date of admission: 05/20/19 17:15 Expected date of discharge: 05/21/19 Attending physician: Deni Lopez Consults: 05/20/19 17:15 Consult Physician Routine Consulting Provider: Subhash Glover Consult Reason/Comments: Vertigo, lightheadedness, recent pacemaker placement Do you want consulting provider notified?: Yes Primary care physician: Chacorta Romero - Discharge Diagnosis(es) (1) Vertigo IV rehydratio Overnight observation Serial troponins, cardiology consult All appear normal patient discharged home for outpatient follow Current Visit: Yes Status: Acute (2) Dehydration Current Visit: No Status: Acute Patient Condition at Discharge: Good Plan - Discharge Summary New Discharge Prescriptions: No Action Tolterodine Tartrate [Detrol LA] 4 mg PO DAILY Aspirin [Adult Low Dose Aspirin EC] 81 mg PO DAILY Pravastatin Sodium [Pravachol] 40 mg PO DAILY Esomeprazole Magnesium [NexIUM] 40 mg PO DAILY Atenolol [Tenormin] 50 mg PO DAILY #90 tab Losartan Potassium [Cozaar] 50 mg PO BID Discharge Medication List Tolterodine Tartrate [Detrol LA] 4 mg PO DAILY 01/13/16 [History] Aspirin [Adult Low Dose Aspirin EC] 81 mg PO DAILY 05/17/17 [History] Esomeprazole Magnesium [NexIUM] 40 mg PO DAILY 06/01/18 [History] Pravastatin Sodium [Pravachol] 40 mg PO DAILY 06/01/18 [History] Atenolol [Tenormin] 50 mg PO DAILY #90 tab 05/09/19 [Rx] Losartan Potassium [Cozaar] 50 mg PO BID 05/20/19 [History] Follow up Appointment(s)/Referral(s): Chacorta Romero MD [Primary Care Provider] - 1-2 days
[2019-05-21 11:39] VITALS: BP 170/90; PULSE 59; TEMP 97.9
--- NOTE | 2019-05-21 14:55 | P.CRDCN ---
History of Present Illness Consult date: 05/21/19 History of present illness: This is a 73-year-old female with history of permanent pacemaker implantation for sick sinus syndrome and on 08 of May. Patient is readmitted now to the hospital with a bout of severe dizziness size to of vertigo. Patient denied any deafness or ringing in the ears. Patient had similar symptoms in February. Following that patient had event monitor which showed evidence of sick sinus syndrome. This morning patient is comfortable. Denies any chest pain, shortness of breath or dizziness. Vital signs are stable. From [facility] candelario dpoint there doesn't seem to be in acute issue. Her EKG showed sinus rhythm. From [facility] standpoint patient discharged home. Patient may need ENT evaluation. Follow-up with Review of Systems As per the chart Past Medical History Past Medical History: GERD/Reflux, Hyperlipidemia, Hypertension, Syncope Additional Past Medical History / Comment(s): See Dr Glover H&P, cystocele with coil, hx migraines, hx ulcer, urinary leakage, Syncope feb- pt sent home with a holter monitor was found to be dolly- dual pacer placed 05/08/2019 History of Any Multi-Drug Resistant Organisms: None Reported Past Surgical History: Bladder Surgery, Cholecystectomy, Hernia Repair, Orthopedic Surgery, Pacemaker, Tonsillectomy, Tubal Ligation Additional Past Surgical History / Comment(s): R eye surgery FOR RETINAL TEAR , Rt carpal tunnel release, BLADDER COIL Past Anesthesia/Blood Transfusion Reactions: Motion Sickness, Postoperative Nausea & Vomiting (PONV) Additional Past Anesthesia/Blood Transfusion Reaction / Comment(s): . Type of Cardiac Device: Permanent Pacemaker Device Placement Date:: 05/08/2019 Past Psychological History: No Psychological Hx Reported Additional Psychological History / Comment(s): . Smoking Status: Never smoker Past Alcohol Use History: None Reported Past Drug Use History: None Reported - Past Family History Brother(s) Family Medical History: Cancer Mother Family Medical History: Cancer Additional Family Medical History / Comment(s): MOTHER RECENTLY AT AGE 86YRS from CAD. HER CANCERS WERE OF THE BREAST AND THE BOWEL. Medications and Allergies Home Medications Medication Instructions Recorded Confirmed Type Tolterodine Tartrate [Detrol LA] 4 mg PO DAILY 01/13/16 05/20/19 History Aspirin [Adult Low Dose Aspirin EC] 81 mg PO DAILY 05/17/17 05/20/19 History Esomeprazole Magnesium [NexIUM] 40 mg PO DAILY 06/01/18 05/20/19 History Pravastatin Sodium [Pravachol] 40 mg PO DAILY 06/01/18 05/20/19 History Atenolol [Tenormin] 50 mg PO DAILY #90 tab 05/09/19 05/20/19 Rx Losartan Potassium [Cozaar] 50 mg PO BID 05/20/19 05/20/19 History Allergies Allergy/AdvReac Type Severity Reaction Status Date / Time Penicillins Allergy Rash/Hives Verified 05/20/19 18:21 Physical Exam Vitals: Vital Signs Temp Pulse Pulse Resp BP BP BP 05/21/19 11:38 97.9 F 59 L 18 170/90 05/21/19 07:44 97.6 F 50 L 18 106/59 05/21/19 05:00 98.1 F 54 L 18 97/58 05/21/19 04:00 57 L 18 05/20/19 23:52 57 L 18 05/20/19 23:35 98.0 F 57 L 18 113/61 05/20/19 20:00 54 L 18 05/20/19 18:40 98.1 F 54 L 18 164/93 05/20/19 17:43 98.2 F 58 L 16 135/79 05/20/19 16:19 56 L 18 148/92 05/20/19 15:51 55 L 18 Pulse Ox 05/21/19 11:38 94 L 05/21/19 07:44 92 L 05/21/19 05:00 97 05/21/19 04:00 05/20/19 23:52 05/20/19 23:35 95 05/20/19 20:00 05/20/19 18:40 97 05/20/19 17:43 95 05/20/19 16:19 97 05/20/19 15:51 Intake and Output 05/20/19 05/21/19 05/21/19 22:59 06:59 14:59 Other: # Voids 1 2 2 Weight 71.668 kg 70 kg GENERAL EXAM: Patient is alert and oriented and doesn't appear to be in any acute distress HEENT: Normocephalic. Normal reaction of pupils, equal size, normal range of extraocular motion. No erythema or exudates in the throat. NECK: No masses, no nuchal rigidity. CHEST: No chest wall deformity. LUNGS: Equal air entry with no crackles or wheeze. HEART: S1 and S2 normal with no audible mumurs or gallops. Regular rhythm, f ABDOMEN: No hepatosplenomegaly, normal bowel sounds, no guarding or rigidity. SKIN: No rashes CENTRAL NERVOUS SYSTEM: No focal deficits. EXTREMITIES: No cyanosis, clubbing or edema. Results 05/20/19 15:03 05/20/19 15:03 Cardiac Enzymes 05/20/19 05/20/19 05/20/19 Range/Units 15:03 15:03 22:42 AST 23 (14-36) U/L Troponin I <0.012 <0.012 (0.000-0.034) ng/mL CBC 05/20/19 Range/Units 15:03 WBC 7.6 (3.8-10.6) k/uL RBC 4.57 (3.80-5.40) m/uL Hgb 12.8 (11.4-16.0) gm/dL Hct 39.0 (34.0-46.0) % Plt Count 241 (150-450) k/uL Comprehensive Metabolic Panel 05/20/19 Range/Units 15:03 Sodium 140 (137-145) mmol/L Potassium 3.9 (3.5-5.1) mmol/L Chloride 106 (98-107) mmol/L Carbon Dioxide 28 (22-30) mmol/L BUN 12 (7-17) mg/dL Creatinine 0.62 (0.52-1.04) mg/dL Glucose 101 H (74-99) mg/dL Calcium 9.4 (8.4-10.2) mg/dL AST 23 (14-36) U/L ALT 20 (4-34) U/L Alkaline Phosphatase 118 (38-126) U/L Total Protein 6.8 (6.3-8.2) g/dL Albumin 4.1 (3.5-5.0) g/dL Current Medications Generic Name Dose Route Start Last Admin Trade Name Freq PRN Reason Stop Dose Admin Acetaminophen 650 mg 05/20/19 17:14 Tylenol Tab PO Q6HR PRN Mild Pain or Fever > 100.5 Alprazolam 0.25 mg 05/20/19 17:14 Xanax PO Q6HR PRN Anxiety Aspirin 81 mg 05/21/19 09:00 05/21/19 10:17 Aspirin PO 81 mg DAILY OLMAN Administration Atenolol 50 mg 05/21/19 09:00 05/21/19 10:18 Tenormin PO 50 mg DAILY OLMAN Administration Famotidine 20 mg 05/20/19 21:00 05/21/19 10:17 Pepcid PO 20 mg BID OLMAN Administration Losartan Potassium 50 mg 05/20/19 21:15 05/21/19 10:18 Cozaar PO 50 mg BID OLMAN Administration Meclizine HCl 25 mg 05/20/19 17:16 Antivert PO TID PRN Vertigo Naloxone HCl 0.2 mg 05/20/19 17:14 Narcan IV Q2M PRN Opioid Reversal Ondansetron HCl 4 mg 05/20/19 17:14 Zofran IVP Q8HR PRN Nausea And Vomiting Oxybutynin Chloride 10 mg 05/21/19 09:00 05/21/19 10:18 Ditropan Xl PO 10 mg DAILY OLMAN Administration Pantoprazole Sodium 40 mg 05/21/19 07:30 05/21/19 10:18 Protonix PO Not Given [id number] Pravastatin Sodium 40 mg 05/21/19 09:00 05/21/19 10:18 Pravachol PO 40 mg DAILY OLMAN Administration Intake and Output 05/20/19 05/21/19 05/21/19 22:59 06:59 14:59 Other: # Voids 1 2 2 Weight 71.668 kg 70 kg 05/20/19 15:03 05/20/19 15:03 EKG Interpretations (text) Sinus rhythm Assessment and Plan (1) Pacemaker Current Visit: Yes Status: Acute Code(s): Z95.0 - PRESENCE OF CARDIAC PACEMAKER SNOMED Code(s): 559657440 (2) Vertigo Current Visit: Yes Status: Acute Code(s): R42 - DIZZINESS AND GIDDINESS SNOMED Code(s): 400026165 (3) Sick sinus syndrome Current Visit: Yes Status: Acute Code(s): I49.5 - SICK SINUS SYNDROME SNOMED Code(s): 55335559 Plan: Patient is admitted with severe vertigo. No cardiac issues at this time. Patient could be discharged home
== END 2019-05-21 14:50 | disposition home or self-care (01) ==
LOC: EC 14:34 → 1SOBS 17:15
PROVIDERS: ADMIT Family Medicine; ATTEND Family Medicine
DX: R42 Dizziness and giddiness (principal); E86.0 Dehydration; R00.1 Bradycardia, unspecified; I10 Essential (primary) hypertension; E78.5 Hyperlipidemia, unspecified; I49.5 Sick sinus syndrome; K21.9 Gastro-esophageal reflux disease without esophagitis; N81.10 Cystocele, unspecified; G43.909 Migraine, unspecified, not intractable, without status migrainosus; Z95.0 Presence of cardiac pacemaker; Z79.82 Long term (current) use of aspirin; Z79.899 Other long term (current) drug therapy; Z88.0 Allergy status to penicillin
CPT/HCPCS: 93005 ×2; 96361; 96374; 99285; 36415; 80053; 83605; 84484; 85025; 81003; 71045; 70450; G0378 ×2; J2765

== ENCOUNTER 2020-04-27 04:27 | Emergency (ER) | payer MEDICARE, BC ==
[2020-04-27 04:33] VITALS: RESP 18; TEMP 98.3
[2020-04-27] MEDS ORDERED: SODIUM CHLORIDE 0.9% 1,000 ML IV STA ×2 (04:36)
[2020-04-27] MEDS ORDERED: diphenhydrAMINE 50 MG/ML 1 ML VIAL IVP STA (04:36)
[2020-04-27] MEDS ORDERED: ONDANSETRON 4 MG/2 ML VIAL IVP STA (04:36)
[2020-04-27] MEDS ORDERED: PANTOPRAZOLE 40 MG/10 ML VIAL IVP STA (04:36)
--- NOTE | 2020-04-27 04:41 | ED ---
"Nausea/Vomiting/Diarrhea HPI - General Chief complaint: Nausea/Vomiting/Diarrhea Stated complaint: nausea, vomiting Time Seen by Provider: 04/27/20 04:29 Source: patient, EMS, RN notes reviewed, old records reviewed Mode of arrival: EMS Limitations: no limitations - History of Present Illness Initial comments: This is a 74-year-old female DF for evaluation patient Dese for evaluation regarding nausea vomiting and anxiety prior to arrival. History of similar symptoms before. Patient has no pain. No abdominal pain. No recent travel history or sick contacts patient does admit to some concern for possibility of coronavirus. Patient does have history of high blood pressure high cholesterol MD complaint: nausea, vomiting -: hour(s) Description of Vomiting: food contents, other (dry heaving) Associated Abdominal Pain: No Location: diffuse Radiation: none Severity: mild Consistency: constant Improves with: none Worsens with: none Associated Symptoms: nausea/vomiting, other (anxiety) - Related Data Home Medications Medication Instructions Recorded Confirmed Tolterodine Tartrate [Detrol LA] 4 mg PO DAILY 01/13/16 05/20/19 Aspirin [Adult Low Dose Aspirin EC] 81 mg PO DAILY 05/17/17 05/20/19 Esomeprazole Magnesium [NexIUM] 40 mg PO DAILY 06/01/18 05/20/19 Pravastatin Sodium [Pravachol] 40 mg PO DAILY 06/01/18 05/20/19 Losartan Potassium [Cozaar] 50 mg PO BID 05/20/19 05/20/19 Previous Rx's Medication Instructions Recorded Atenolol [Tenormin] 50 mg PO DAILY #90 tab 05/09/19 Allergies Allergy/AdvReac Type Severity Reaction Status Date / Time Penicillins Allergy Rash/Hives Verified 04/27/20 04:33 Review of Systems ROS Statement: Those systems with pertinent positive or pertinent negative responses have been documented in the HPI. ROS Other: All systems not noted in ROS Statement are negative. Past Medical History Past Medical History: GERD/Reflux, Hyperlipidemia, Hypertension, Syncope Additional Past Medical History / Comment(s): See Dr Glover H&P, cystocele with coil, hx migraines, hx ulcer, urinary leakage, Syncope feb- pt sent home with a holter monitor was found to be dolly- dual pacer placed 05/08/2019 History of Any Multi-Drug Resistant Organisms: None Reported Past Surgical History: Bladder Surgery, Cholecystectomy, Hernia Repair, Orth opedic Surgery, Pacemaker, Tonsillectomy, Tubal Ligation Additional Past Surgical History / Comment(s): R eye surgery FOR RETINAL TEAR , Rt carpal tunnel release, BLADDER COIL Past Anesthesia/Blood Transfusion Reactions: Motion Sickness, Postoperative Nausea & Vomiting (PONV) Additional Past Anesthesia/Blood Transfusion Reaction / Comment(s): . Type of Cardiac Device: Permanent Pacemaker Device Placement Date:: 05/08/2019 Past Psychological History: No Psychological Hx Reported Smoking Status: Former smoker Past Alcohol Use History: None Reported Past Drug Use History: None Reported - Past Family History Brother(s) Family Medical History: Cancer Mother Family Medical History: Cancer Additional Family Medical History / Comment(s): MOTHER RECENTLY AT AGE 86YRS from CAD. HER CANCERS WERE OF THE BREAST AND THE BOWEL. General Exam Limitations: no limitations General appearance: alert, in no apparent distress, anxious Head exam: Present: atraumatic, normocephalic, normal inspection Eye exam: Present: normal appearance, PERRL, EOMI. Absent: scleral icterus, conjunctival injection, periorbital swelling ENT exam: Present: normal exam, mucous membranes moist Neck exam: Present: normal inspection. Absent: tenderness, meningismus, lymphadenopathy Respiratory exam: Present: normal lung sounds bilaterally. Absent: respiratory distress, wheezes, rales, rhonchi, stridor Cardiovascular Exam: Present: regular rate, normal rhythm, normal heart sounds. Absent: systolic murmur, diastolic murmur, rubs, gallop, clicks GI/Abdominal exam: Present: soft, normal bowel sounds. Absent: distended, tenderness, guarding, rebound, rigid Extremities exam: Present: normal inspection, full ROM, normal capillary refill. Absent: tenderness, pedal edema, joint swelling, calf tenderness Back exam: Present: normal inspection Neurological exam: Present: alert, oriented X3, CN II-XII intact Psychiatric exam: Present: normal affect, normal mood Skin exam: Present: warm, dry, intact, normal color. Absent: rash Course Vital Signs 04/27/20 04/27/20 04:27 05:32 Temperature 98.3 F Pulse Rate 74 65 Respiratory 18 18 Rate Blood Pressure 132/77 116/68 O2 Sat by Pulse 95 96 Oximetry - Reevaluation(s) Reevaluation #1: 04/27/20 06:45 Medical | record is reviewed Reevaluation #2: 04/27/20 06:45 Patient is feeling improved, has no other complaints will be discharged Reevaluation #3: 04/27/20 06:45 Upon further conversation patient thinks that she had coronavirus, patient from lab values do not like she has coronavirus without fever and she has no current shortness of breath or chest pain Medical Decision Making - Medical Decision Making 74 female to the ER for nausea vomiting she admit to some tightness in her throat she was concerned that she had coronavirus. Patient adelia is a well here in no active nausea vomiting currently. Anxiety likely caused from thought of coronavirus and patient can be discharged home - Lab Data Result diagrams: 04/27/20 04:46 04/27/20 04:46 Lab Results 04/27/20 04/27/20 04/27/20 Range/Units 04:46 04:46 04:46 WBC 13.9 H (3.8-10.6) k/uL RBC 4.67 (3.80-5.40) m/uL Hgb 12.8 (11.4-16.0) gm/dL Hct 40.1 (34.0-46.0) % MCV 85.9 (80.0-100.0) fL MCH 27.5 (25.0-35.0) pg MCHC 32.0 (31.0-37.0) g/dL RDW 13.5 (11.5-15.5) % Plt Count 229 (150-450) k/uL MPV 7.4 Neutrophils % 88 % Lymphocytes % 7 % Monocytes % 4 % Eosinophils % 1 % Basophils % 0 % Neutrophils # 12.3 H (1.3-7.7) k/uL Lymphocytes # 0.9 L (1.0-4.8) k/uL Monocytes # 0.5 (0-1.0) k/uL Eosinophils # 0.1 (0-0.7) k/uL Basophils # 0.0 (0-0.2) k/uL Sodium 139 (137-145) mmol/L Potassium 3.9 (3.5-5.1) mmol/L Chloride 107 (98-107) mmol/L Carbon Dioxide 29 (22-30) mmol/L Anion Gap 3 mmol/L BUN 14 (7-17) mg/dL Creatinine 0.60 (0.52-1.04) mg/dL Est GFR (CKD-EPI)AfAm >90 (>60 ml/min/1.73 sqM) Est GFR (CKD-EPI)NonAf >90 (>60 ml/min/1.73 sqM) Glucose 118 H (74-99) mg/dL Calcium 9.0 (8.4-10.2) mg/dL Phosphorus 3.0 (2.5-4.5) mg/dL Magnesium 1.8 (1.6-2.3) mg/dL Total Bilirubin 0.7 (0.2-1.3) mg/dL AST 28 (14-36) U/L ALT 25 (4-34) U/L Alkaline Phosphatase 91 (38-126) U/L Creatine Kinase 133 (30-135) U/L Troponin I <0.012 (0.000-0.034) ng/mL Total Protein 6.3 (6.3-8.2) g/dL Albumin 3.7 (3.5-5.0) g/dL Urine Color Urine Appearance (Clear) Urine pH (5.0-8.0) Ur Specific Powell (1.001-1.035) Urine Protein (Negative) Urine Glucose (UA) (Negative) Urine Ketones (Negative) Urine Blood (Negative) Urine Nitrite (Negative) Urine Bilirubin (Negative) Urine Urobilinogen (<2.0) mg/dL Ur Leukocyte Esterase (Negative) 04/27/20 Range/Units 05:45 WBC (3.8-10.6) k/uL RBC (3.80-5.40) m/uL Hgb (11.4-16.0) gm/dL Hct (34.0-46.0) % MCV (80.0-100.0) fL MCH (25.0-35.0) pg MCHC (31.0-37.0) g/dL RDW (11.5-15.5) % Plt Count (150-450) k/uL MPV Neutrophils % % Lymphocytes % % Monocytes % % Eosinophils % % Basophils % % Neutrophils # (1.3-7.7) k/uL Lymphocytes # (1.0-4.8) k/uL Monocytes # (0-1.0) k/uL Eosinophils # (0-0.7) k/uL Basophils # (0-0.2) k/uL Sodium (137-145) mmol/L Potassium (3.5-5.1) mmol/L Chloride (98-107) mmol/L Carbon Dioxide (22-30) mmol/L Anion Gap mmol/L BUN (7-17) mg/dL Creatinine (0.52-1.04) mg/dL Est GFR (CKD-EPI)AfAm (>60 ml/min/1.73 sqM) Est GFR (CKD-EPI)NonAf (>60 ml/min/1.73 sqM) Glucose (74-99) mg/dL Calcium (8.4-10.2) mg/dL Phosphorus (2.5-4.5) mg/dL Magnesium (1.6-2.3) mg/dL Total Bilirubin (0.2-1.3) mg/dL AST (14-36) U/L ALT (4-34) U/L Alkaline Phosphatase (38-126) U/L Creatine Kinase (30-135) U/L Troponin I (0.000-0.034) ng/mL Total Protein (6.3-8.2) g/dL Albumin (3.5-5.0) g/dL Urine Color Yellow Urine Appearance Clear (Clear) Urine pH 7.5 (5.0-8.0) Ur Specific Powell 1.013 (1.001-1.035) Urine Protein Negative (Negative) Urine Glucose (UA) Negative (Negative) Urine Ketones Negative (Negative) Urine Blood Negative (Negative) Urine Nitrite Negative (Negative) Urine Bilirubin Negative (Negative) Urine Urobilinogen <2.0 (<2.0) mg/dL Ur Leukocyte Esterase Negative (Negative) - EKG Data -: EKG Interpreted by Me (EKG shows sinus rhythm 73 NC 156 L 90 QTC 425) Disposition Clinical Impression: Nausea & vomiting, Dehydration Disposition: HOME SELF-CARE Condition: Good Instructions (If sedation given, give patient instructions): Acute Nausea and Vomiting (ED) Is patient prescribed a controlled substance at d/c from ED?: No Referrals: Chacorta Romero MD [Primary Care Provider] - 1-2 days"
[2020-04-27 04:53] LABS: Basophils % (A) 0 %; Eosinophils # (A) 0.1 k/uL (0-0.7); Eosinophils % (A) 1 %; HCT 40.1 % (34.0-46.0); HGB 12.8 gm/dL (11.4-16.0); Lymphocytes # (A) 0.9 k/uL (1.0-4.8); Lymphocytes % (A) 7 %; MCH 27.5 pg (25.0-35.0); MCV 85.9 fL (80.0-100.0); Mean Platelet Volume 7.4; Monocytes # (A) 0.5 k/uL (0-1.0); Monocytes % (A) 4 %; Neutrophils # (A) 12.3 k/uL (1.3-7.7); Neutrophils % (A) 88 %; Platelet Count 229 k/uL (150-450); RBC 4.67 m/uL (3.80-5.40); RDW 13.5 % (11.5-15.5); WBC 13.9 k/uL (3.8-10.6)
[2020-04-27 05:32] LABS: ALT 25 U/L (4-34); AST 28 U/L (14-36); African American GFR (CKD) >90 (>60 ml/min/1.73 sqM); Albumin 3.7 g/dL (3.5-5.0); Alkaline Phosphatase 91 U/L (38-126); Anion Gap 3 mmol/L; Blood Urea Nitrogen 14 mg/dL (7-17); Carbon Dioxide 29 mmol/L (22-30); Chloride 107 mmol/L (98-107); Creatine Kinase 133 U/L (30-135); Glucose 118 mg/dL (74-99); Magnesium 1.8 mg/dL (1.6-2.3); Non-African American GFR(CKD) >90 (>60 ml/min/1.73 sqM); Potassium 3.9 mmol/L (3.5-5.1); Sodium 139 mmol/L (137-145); Total Bilirubin 0.7 mg/dL (0.2-1.3); Total Protein 6.3 g/dL (6.3-8.2)
[2020-04-27 05:49] VITALS: BP 116/68; PULSE 65
[2020-04-27 06:14] LABS: Appearance,Urine Clear (Clear); Bilirubin,Urine Negative (Negative); Blood,Urine Negative (Negative); Color,Urine Yellow; Glucose,Urine (UA) Negative (Negative); Ketones,Urine Negative (Negative); Leukocyte Esterase,Urine Negative (Negative); Nitrite,Urine Negative (Negative); PH, Urine 7.5 (5.0-8.0); Protein,Urine Negative (Negative); Specific Gravity,Urine 1.013 (1.001-1.035); Urobilinogen,Urine <2.0 mg/dL (<2.0)
== END 2020-04-27 08:59 | disposition home or self-care (01) ==
LOC: EC 04:27
DX: R11.2 Nausea with vomiting, unspecified (principal); E86.0 Dehydration; E78.5 Hyperlipidemia, unspecified; I10 Essential (primary) hypertension; Z79.899 Other long term (current) drug therapy; Z88.0 Allergy status to penicillin; Z95.0 Presence of cardiac pacemaker; Z90.49 Acquired absence of other specified parts of digestive tract; Z87.891 Personal history of nicotine dependence
CPT/HCPCS: 36415; 93005; 80053; 82550; 83605; 83735; 84100; 84484; 85025; 81003; 99284; 96374; 96375 ×2; 96361 ×4; J1200; J2405; C9113

== ENCOUNTER → 2020-12-25 | Outpatient (CLI) | payer MEDICARE, BC ==
--- NOTE | 2020-12-26 09:22 | MM ---
Reason for exam: screening (asymptomatic). Last mammogram was performed 1 year and 11 months ago. History: Patient is postmenopausal. Family history of breast cancer in mother at age 75, breast cancer in paternal aunt, and breast cancer in maternal cousin. Core biopsy of the right breast, 2007. Physical Findings: A clinical breast exam by your physician is recommended on an annual basis and results should be correlated with mammographic findings. MG 3D Screening Mammo W/Cad Bilateral CC and MLO view(s) were taken. Prior study comparison: January 10, 2019, bilateral MG 3d screening mammo w/cad. December 21, 2017, bilateral MG 3d screening mammo w/cad. The breast tissue is heterogeneously dense. This may lower the sensitivity of mammography. Finding: There are typically benign dystrophic, round calcifications in both breasts. There is a chronic nodularity in the right breast. Left axillary pacemaker currently. ASSESSMENT: Benign, BI-RAD 2 RECOMMENDATION: Routine screening mammogram of both breasts in 1 year.
== END | disposition home or self-care (01) ==
LOC: RADMAMWWP 09:40
PROVIDERS: ATTEND Family Medicine
DX: Z12.31 Encounter for screening mammogram for malignant neoplasm of breast (principal); Z78.0 Asymptomatic menopausal state; Z80.3 Family history of malignant neoplasm of breast
CPT/HCPCS: 77063; 77067

== ENCOUNTER → 2021-03-24 | Outpatient (CLI) | payer MEDICARE, BC ==
[2021-03-24 12:31] LABS: Basophils % (A) 0 %; Eosinophils % (A) 0 %; HCT 39.4 % (34.0-46.0); HGB 13.5 gm/dL (11.4-16.0); Lymphocytes # (A) 0.8 k/uL (1.0-4.8); Lymphocytes % (A) 14 %; MCH 29.3 pg (25.0-35.0); MCHC 34.2 g/dL (31.0-37.0); MCV 85.7 fL (80.0-100.0); Monocytes # (A) 0.5 k/uL (0-1.0); Monocytes % (A) 9 %; Neutrophils # (A) 3.9 k/uL (1.3-7.7); Neutrophils % (A) 74 %; Platelet Count 185 k/uL (150-450); RDW 13.7 % (11.5-15.5); WBC 5.3 k/uL (3.8-10.6)
[2021-03-24 12:43] LABS: ALT 22 U/L (4-34); AST 30 U/L (14-36); African American GFR (CKD) >90 (>60 ml/min/1.73 sqM); Albumin 3.8 g/dL (3.5-5.0); Alkaline Phosphatase 87 U/L (38-126); Anion Gap 8 mmol/L; Blood Urea Nitrogen 18 mg/dL (7-17); Carbon Dioxide 29 mmol/L (22-30); Chloride 97 mmol/L (98-107); Glucose 101 mg/dL (74-99); Non-African American GFR(CKD) 86 (>60 ml/min/1.73 sqM); Potassium 4.1 mmol/L (3.5-5.1); Sodium 134 mmol/L (137-145); Total Bilirubin 0.5 mg/dL (0.2-1.3); Total Protein 6.8 g/dL (6.3-8.2)
--- NOTE | 2021-03-24 13:55 | CT ---
EXAMINATION TYPE: CT abdomen pelvis w con DATE OF EXAM: 03/24/2021 HISTORY: Left lower quadrant abdominal and Pelvic pain with nausea. CT DLP: 441.3mGycm Automated Exposure Control for Dose Reduction was Utilized. CONTRAST: CT scan of the abdomen and pelvis is performed with oral and with IV Contrast, patient injected with 100 mL of Isovue 300. COMPARISON: CT abdomen and pelvis June 01, 2018 FINDINGS: LUNG BASES:New Right-sided pacemaker leads are partially imaged.. LIVER/GB: Cholecystectomy clips redemonstrated. PANCREAS: No significant abnormality is seen. SPLEEN: No significant abnormality is seen. ADRENALS: Larger heterogeneous enhancing 3.5 x 2.1 cm x 2.8 cm right adrenal mass axial image 16 and coronal image 45. KIDNEYS: Symmetric cortical medullary uptake and excretion with prominent extrarenal pelvises bilater ally redemonstrated. No hydroureter seen. BOWEL: Small hiatal hernia is slightly less prominent versus prior. Oral contrast reaches the distal transverse colon. No suspicious small or large bowel dilatation. Mild/moderate fecal prominence in th e left and sigmoid colon. Some distal colonic diverticula redemonstrated. No CT evidence for acute di verticulitis. UTERUS/ADNEXA: Anteverted uterus projects to right of midline. Scattered bilateral pelvic phleboliths . Pessary type device in the vaginal vault again seen. Stable 2.7 cm thin-walled cyst or cystic lesio n in the left pelvis or ovary axial image 62. LYMPH NODES: No new greater than 1cm abdominal or pelvic lymph nodes are appreciated. OSSEOUS STRUCTURES: Vacuum disc phenomenon L4-L5 level redemonstrated. Facet arthropathy lower lumbar levels. OTHER: Moderate calcified plaque of the aorta extends into branch vessels. Possible significant narro wing of the celiac artery at its origin and sagittal image 69 unchanged from prior IMPRESSION: 1. No bowel obstruction. [id number] diffuse colonic fecal stasis otherwise no significant new o r acute finding is seen to account for patient's clinical symptoms of left lower quadrant and pelvic pain. 2. Enlarging heterogeneous enhancing right adrenal 3.5 cm mass, cannot exclude new malignant lesion o n background benign lesion or a collision tumor and nonemergent follow-up advised.
[2021-03-24 15:51] LABS: Appearance,Urine Clear (Clear); Bilirubin,Urine Negative (Negative); Blood,Urine Negative (Negative); Color,Urine Yellow; Glucose,Urine (UA) Negative (Negative); Ketones,Urine 1+ (Negative); Leukocyte Esterase,Urine Negative (Negative); Nitrite,Urine Negative (Negative); PH, Urine 5.5 (5.0-8.0); Protein,Urine Negative (Negative); Specific Gravity,Urine 1.012 (1.001-1.035); Urobilinogen,Urine <2.0 mg/dL (<2.0)
== END | disposition home or self-care (01) ==
LOC: RADCTMAIN 11:45
PROVIDERS: ATTEND Family Medicine
DX: R10.32 Left lower quadrant pain (principal); R10.2 Pelvic and perineal pain; N83.8 Other noninflammatory disorders of ovary, fallopian tube and broad ligament
CPT/HCPCS: 80053; 85025; 81003; 74177; 36415; Q9967

== ENCOUNTER 2021-04-01 05:16 | Emergency (ER) | payer MEDICARE, BC ==
[2021-04-01 05:26] VITALS: RESP 18; TEMP 97.6
--- NOTE | 2021-04-01 05:29 | ED ---
Head Injury HPI - General Stated complaint: Covid+, fall Time Seen by Provider: 04/01/21 05:22 - History of Present Illness Initial comments: This patient is 75-year-old woman who presents by ambulance to be evaluated after she had a fall. The patient states that she remembers going to get a glass of cold water and then she woke up on the floor. Patient believes she fell backwards striking her head and losing consciousness. She does not recall the actual fall. Patient denies pain anywhere other then headache to the posterior head. No neck pain no back, chest, abdomen or extremity pains MD Complaint: head injury -: minutes(s) Mechanism of Injury: mechanical fall Location: occipital Loss of Consciousness: yes Previous Trauma to this Area: No Place: home Radiation: none Quality: dull Consistency: constant Provoking factors: none known Other Injuries: none Context: on Warfarin Associated Symptoms: denies other symptoms - Related Data Home Medications Medication Instructions Recorded Confirmed Tolterodine Tartrate [Detrol LA] 4 mg PO DAILY 01/13/16 05/20/19 Aspirin [Adult Low Dose Aspirin EC] 81 mg PO DAILY 05/17/17 05/20/19 Esomeprazole Magnesium [NexIUM] 40 mg PO DAILY 06/01/18 05/20/19 Pravastatin Sodium [Pravachol] 40 mg PO DAILY 06/01/18 05/20/19 Losartan Potassium [Cozaar] 50 mg PO BID 05/20/19 05/20/19 Previous Rx's Medication Instructions Recorded Atenolol [Tenormin] 50 mg PO DAILY #90 tab 05/09/19 Allergies/Adverse reactions: Allergies Allergy/AdvReac Type Severity Reaction Status Date / Time Penicillins Allergy Rash/Hives Verified 04/01/21 05:26 Review of Systems ROS Statement: Those systems with pertinent positive or pertinent negative responses have been documented in the HPI. ROS Other: All systems not noted in ROS Statement are negative. Constitutional: Reports: fever. Denies: chills, weakness Eyes: Denies: vision change ENT: Denies: ear pain, epistaxis Respiratory: Reports: cough. Denies: dyspnea Cardiovascular: Reports: syncope. Denies: chest pain, palpitations Gastrointestinal: Denies: abdominal pain, vomiting, diarrhea Genitourinary: Denies: dysuria, hematuria Musculoskeletal: Denies: back pain Skin: Denies: rash Neurological: Reports: as per HPI, headache. Denies: weakness, numbness, paresthesias, confusion Past Medical History Past Medical History: GERD/Reflux, Hyperlipidemia, Hypertension, Syncope Additional Past Medical History / Comment(s): See Dr Adalberto Mariano&P, cystocele with coil, hx migraines, hx ulcer, urinary leakage, Syncope feb- pt sent home with a holter monitor was found to be dolly- dual pacer placed 05/08/2019 History of Any Multi-Drug Resistant Organisms: None Reported Past Surgical History: Bladder Surgery, Cholecystectomy, Hernia Repair, Orthopedic Surgery, Pacemaker, Tonsillectomy, Tubal Ligation Additional Past Surgical History / Comment(s): R eye surgery FOR RETINAL TEAR , Rt carpal tunnel release, BLADDER COIL Past Anesthesia/Blood Transfusion Reactions: Motion Sickness, Postoperative Nausea & Vomiting (PONV) Additional Past Anesthesia/Blood Transfusion Reaction / Comment(s): . Type of Cardiac Device: Permanent Pacemaker Device Placement Date:: 05/08/2019 Past Psychological History: No Psychological Hx Reported Smoking Status: Former smoker Past Alcohol Use History: None Reported Past Drug Use History: None Reported - Past Family History Brother(s) Family Medical History: Cancer Mother Family Medical History: Cancer Additional Family Medical History / Comment(s): MOTHER RECENTLY AT AGE 86YRS from CAD. HER CANCERS WERE OF THE BREAST AND THE BOWEL. General Exam General appearance: alert, in no apparent distress Head exam: Present: normocephalic, other (There is an approximately 8-10 cm contusion/hematoma posterior aspect of scalp. No obvious deformity or step off. Moderate tenderness.) Eye exam: Present: normal appearance, PERRL, EOMI. Absent: scleral icterus, conjunctival injection ENT exam: Present: normal oropharynx Neck exam: Present: normal inspection, full ROM. Absent: tenderness Respiratory exam: Present: normal lung sounds bilaterally. Absent: respiratory distress, wheezes, rales, rhonchi, stridor, chest wall tenderness Cardiovascular Exam: Present: regular rate, normal rhythm, normal heart sounds. Absent: systolic murmur, diastolic murmur, rubs, gallop GI/Abdominal exam: Present: soft. Absent: distended, tenderness, guarding, rebound, rigid, mass Extremities exam: Present: normal inspection, normal capillary refill. Absent: pedal edema, calf tenderness Back exam: Present: normal inspection. Absent: CVA tenderness (R), CVA tenderness (L), vertebral tenderness Neurological exam: Present: alert, oriented X3, CN II-XII intact. Absent: motor sensory deficit Skin exam: Present: warm, dry, intact, normal color. Absent: rash Course Vital Signs 04/01/21 04/01/21 05:19 06:25 Temperature 97.6 F Pulse Rate 72 63 Respiratory 18 18 Rate Blood Pressure 118/81 158/92 O2 Sat by Pulse 96 97 Oximetry Medical Decision Making - Lab Data Result diagrams: 04/01/21 05:37 04/01/21 05:37 Lab Results 04/01/21 04/01/21 04/01/21 Range/Units 05:37 05:37 05:37 WBC 8.4 (3.8-10.6) k/uL RBC 4.55 (3.80-5.40) m/uL Hgb 13.4 (11.4-16.0) gm/dL Hct 39.0 (34.0-46.0) % MCV 85.7 (80.0-100.0) fL MCH 29.5 (25.0-35.0) pg MCHC 34.4 (31.0-37.0) g/dL RDW 13.2 (11.5-15.5) % Plt Count 215 (150-450) k/uL MPV 8.2 Neutrophils % 84 % Lymphocytes % 9 % Monocytes % 6 % Eosinophils % 1 % Basophils % 0 % Neutrophils # 7.1 (1.3-7.7) k/uL Lymphocytes # 0.8 L (1.0-4.8) k/uL Monocytes # 0.5 (0-1.0) k/uL Eosinophils # 0.1 (0-0.7) k/uL Basophils # 0.0 (0-0.2) k/uL PT (9.0-12.0) sec INR (<1.2) APTT (22.0-30.0) sec Sodium 135 L (137-145) mmol/L Potassium 3.8 (3.5-5.1) mmol/L Chloride 100 (98-107) mmol/L Carbon Dioxide 25 (22-30) mmol/L Anion Gap 10 mmol/L BUN 8 (7-17) mg/dL Creatinine 0.55 (0.52-1.04) mg/dL Est GFR (CKD-EPI)AfAm >90 (>60 ml/min/1.73 sqM) Est GFR (CKD-EPI)NonAf >90 (>60 ml/min/1.73 sqM) Glucose 128 H (74-99) mg/dL Plasma Lactic Acid Edgar 1.1 (0.7-2.0) mmol/L Calcium 8.6 (8.4-10.2) mg/dL Total Bilirubin 0.8 (0.2-1.3) mg/dL AST 25 (14-36) U/L ALT 22 (4-34) U/L Alkaline Phosphatase 79 (38-126) U/L Troponin I (0.000-0.034) ng/mL Total Protein 6.2 L (6.3-8.2) g/dL Albumin 3.5 (3.5-5.0) g/dL 04/01/21 04/01/21 Range/Units 05:37 06:08 WBC (3.8-10.6) k/uL RBC (3.80-5.40) m/uL Hgb (11.4-16.0) gm/dL Hct (34.0-46.0) % MCV (80.0-100.0) fL MCH (25.0-35.0) pg MCHC (31.0-37.0) g/dL RDW (11.5-15.5) % Plt Count (150-450) k/uL MPV Neutrophils % % Lymphocytes % % Monocytes % % Eosinophils % % Basophils % % Neutrophils # (1.3-7.7) k/uL Lymphocytes # (1.0-4.8) k/uL Monocytes # (0-1.0) k/uL Eosinophils # (0-0.7) k/uL Basophils # (0-0.2) k/uL PT 10.7 (9.0-12.0) sec INR 1.0 (<1.2) APTT 24.9 (22.0-30.0) sec Sodium (137-145) mmol/L Potassium (3.5-5.1) mmol/L Chloride (98-107) mmol/L Carbon Dioxide (22-30) mmol/L Anion Gap mmol/L BUN (7-17) mg/dL Creatinine (0.52-1.04) mg/dL Est GFR (CKD-EPI)AfAm (>60 ml/min/1.73 sqM) Est GFR (CKD-EPI)NonAf (>60 ml/min/1.73 sqM) Glucose (74-99) mg/dL Plasma Lactic Acid Edgar (0.7-2.0) mmol/L Calcium (8.4-10.2) mg/dL Total Bilirubin (0.2-1.3) mg/dL AST (14-36) U/L ALT (4-34) U/L Alkaline Phosphatase (38-126) U/L Troponin I <0.012 (0.000-0.034) ng/mL Total Protein (6.3-8.2) g/dL Albumin (3.5-5.0) g/dL - EKG Data -: EKG Interpreted by Fl EKG shows normal: sinus rhythm (With sinus arrhythmia), axis (Left axis deviation), intervals (Normal), QRS complexes (Normal) Rate: normal (Rate 70 bpm) Interpretation: nonspecific ST-T wave changes Disposition Clinical Impression: Head injury, COVID-19 Disposition: HOME SELF-CARE Condition: Good Instructions (If sedation given, give patient instructions): Fall Prevention for Older Adults (ED), Coronavirus Disease 2019 (COVID-19) Is patient prescribed a controlled substance at d/c from ED?: No Referrals: Chacorta Romero MD [Primary Care Provider] - 1-2 days
[2021-04-01 06:00] LABS: Basophils % (A) 0 %; Eosinophils # (A) 0.1 k/uL (0-0.7); Eosinophils % (A) 1 %; HGB 13.4 gm/dL (11.4-16.0); Lymphocytes # (A) 0.8 k/uL (1.0-4.8); Lymphocytes % (A) 9 %; MCH 29.5 pg (25.0-35.0); MCHC 34.4 g/dL (31.0-37.0); MCV 85.7 fL (80.0-100.0); Mean Platelet Volume 8.2; Monocytes # (A) 0.5 k/uL (0-1.0); Monocytes % (A) 6 %; Neutrophils # (A) 7.1 k/uL (1.3-7.7); Neutrophils % (A) 84 %; Platelet Count 215 k/uL (150-450); RBC 4.55 m/uL (3.80-5.40); RDW 13.2 % (11.5-15.5); WBC 8.4 k/uL (3.8-10.6)
--- NOTE | 2021-04-01 06:07 | CT ---
EXAMINATION TYPE: CT brain speedy mathis con DATE OF EXAM: 04/01/2021 COMPARISON: CT brain 05/20/2019 HISTORY: FALL CT DLP: 1362.9 mGycm Automated exposure control for dose reduction was used. There is some cerebral cortical atrophy. There is no mass effect nor midline shift. There is no sign of intracranial hemorrhage. There is occipital scalp hematoma measuring 9 mm in maximum thickness. Ca lvarium is intact. There is mild mucosal thickening in the maxillary sinuses. Cervical vertebra have fairly normal alignment. There is degenerative disc space narrowing at C5-6 wi th spurring of the endplates. There is no compression fracture. Facet joints are intact. There is mul tilevel hypertrophic facet arthropathy. Prevertebral soft tissues are intact. IMPRESSION: Occipital scalp hematoma. Mild cerebral atrophy. No acute intracranial abnormality. Spondylosis at C5-6. No cervical spine fracture.
[2021-04-01 06:09] LABS: Partial Thromboplastin Time 24.9 sec (22.0-30.0); Prothrombin Time 10.7 sec (9.0-12.0)
[2021-04-01] MEDS ORDERED: ONDANSETRON 4 MG/2 ML VIAL IVP STA (06:11)
[2021-04-01] MEDS ORDERED: KETOROLAC 15 MG/ML 1 ML VIAL IVP STA (06:14)
[2021-04-01 06:19] LABS: ALT 22 U/L (4-34); AST 25 U/L (14-36); African American GFR (CKD) >90 (>60 ml/min/1.73 sqM); Albumin 3.5 g/dL (3.5-5.0); Alkaline Phosphatase 79 U/L (38-126); Anion Gap 10 mmol/L; Blood Urea Nitrogen 8 mg/dL (7-17); Calcium 8.6 mg/dL (8.4-10.2); Carbon Dioxide 25 mmol/L (22-30); Chloride 100 mmol/L (98-107); Glucose 128 mg/dL (74-99); Non-African American GFR(CKD) >90 (>60 ml/min/1.73 sqM); Potassium 3.8 mmol/L (3.5-5.1); Sodium 135 mmol/L (137-145); Total Bilirubin 0.8 mg/dL (0.2-1.3); Total Protein 6.2 g/dL (6.3-8.2)
[2021-04-01] MEDS ORDERED: MECLIZINE 12.5 MG TAB PO STA (06:52)
[2021-04-01] MEDS ORDERED: METOCLOPRAMIDE 5 MG/ML 2 ML VIAL IVP STA (07:17)
[2021-04-01 07:57] LABS: Appearance,Urine Clear (Clear); Bacteria,Urine Moderate /hpf; Bilirubin,Urine Negative (Negative); Blood,Urine Negative (Negative); Color,Urine Light Yellow; Glucose,Urine (UA) Negative (Negative); Ketones,Urine 2+ (Negative); Leukocyte Esterase,Urine Small (Negative); Mucus,Urine Rare /hpf; Nitrite,Urine Negative (Negative); Protein,Urine Negative (Negative); RBC,Urine 1 /hpf (0-5); Specific Gravity,Urine 1.003 (1.001-1.035); Squamous Epithelial Cell,Urine 7 /hpf (0-4); Urobilinogen,Urine <2.0 mg/dL (<2.0); WBC,Urine 3 /hpf (0-5)
[2021-04-01] MEDS ORDERED: BAMLANIVIMAB (EUA) 700 MG, ETESEVIMAB (EUA) 1,400 MG in SODIUM CHLORIDE 0.9% 50 ML IVPB ONE (08:00)
[2021-04-01] MEDS ORDERED: SODIUM CHLORIDE 0.9% 50 ML IVPB ONE (08:30)
[2021-04-01 09:49] VITALS: BP 124/75; PULSE 69
== END 2021-04-01 09:42 | disposition home or self-care (01) ==
LOC: EC 05:16
DX: U07.1 COVID-19 (principal); S09.90XA Unspecified injury of head, initial encounter; K21.9 Gastro-esophageal reflux disease without esophagitis; E78.5 Hyperlipidemia, unspecified; I10 Essential (primary) hypertension; Z79.82 Long term (current) use of aspirin; Z88.0 Allergy status to penicillin; Z90.49 Acquired absence of other specified parts of digestive tract; Z95.0 Presence of cardiac pacemaker; Z98.51 Tubal ligation status; Z87.891 Personal history of nicotine dependence; W01.10XA Fall on same level from slipping, tripping and stumbling with subsequent striking against unspecified object, initial encounter
CPT/HCPCS: 96374; 96375; 99284; M0245; 36415; 70450; 72125; 80053; 81001; 83605; 84484; 85025; 85610; 85730; 87635; 93005

== ENCOUNTER → 2021-04-08 | Outpatient (CLI) | payer MEDICARE, BC | END | disposition home or self-care (01) | LOC: LABWHC1 10:07 | PROVIDERS: ATTEND Urology | DX: D35.00 Benign neoplasm of unspecified adrenal gland (principal) | CPT/HCPCS: 36415; 82088; 82533; 83835; 84244 ==

== ENCOUNTER → 2021-04-16 | Outpatient (CLI) | payer MEDICARE, BC ==
--- NOTE | 2021-04-16 08:48 | BD ---
EXAMINATION TYPE: Axial Bone Density DATE OF EXAM: 04/16/2021 COMPARISON: NONE CLINICAL HISTORY: Height: 62 Weight: 132.3 FRAX RISK QUESTIONS: Alcohol (3 or more units per day): no Family History (Parent hip fracture): no Glucocorticoids (More than 3mos): no (Ex: prednisone, prednisolone, methylprednisolone, dexamethasone, and hydrocortisone). History of Fracture in Adulthood: no Secondary Osteoporosis: 1. Type 1 Diabetes: no 2. Hyperthyroidism: no 3. Menopause before 45: no 4. Malnutrition: no 5. Chronic liver disease: no Rheumatoid Arthritis: no Current Tobacco Use: no RISK FACTORS HISTORY OF: Surgery to Spine/Hip(right/left)/Wrist (right/left): no Family History of Osteoporosis: no Active: yes Diet low in dairy products/other sources of calcium: no Postmenopausal woman: yes Lost more than 2 inches in height since high school: yes MEDICATIONS: scanned into pacs Additional History: EXAM MEASUREMENTS: Bone mineral densitometry was performed using the Filtrbox System. Bone mineral density as measured about the Lumbar spine is: ----- L1-L4(G/cm2): 0.957 T Score Values are as follows: ----- L2: -2.6 ----- L3: -2.1 ----- L4: -1.2 ----- L1-L4: -1.9 Bone mineral density has: decreased -6.2 % since study of: 01.10.2019 Bone mineral density about the R hip (g/cm2): 0.811 Bone mineral density about the L hip (g/cm2): 0.867 T Score values are as follows: -----R Neck: -1.6 -----L Neck: -1.2 -----R Total: -1.5 -----L Total: -1.0 Bone mineral density has: decreased -6.3 % since study of: 01.10.2019 IMPRESSION: Osteopenia NOTE: T-SCORE=SD OF THE YOUNG ADULT MEAN.
== END | disposition home or self-care (01) ==
LOC: RADBDWWP 07:44
PROVIDERS: ATTEND Obstetrics & Gynecology
DX: M81.0 Age-related osteoporosis without current pathological fracture (principal); M85.89 Other specified disorders of bone density and structure, multiple sites; Z78.0 Asymptomatic menopausal state
CPT/HCPCS: 77080

== ENCOUNTER → 2021-04-16 | Outpatient (CLI) | payer MEDICARE, BC ==
--- NOTE | 2021-04-16 10:24 | CT ---
EXAMINATION TYPE: CT adrenal glands wo/w con DATE OF EXAM: 04/16/2021 COMPARISON: 03/24/2021 HISTORY: adrenal mass CT DLP: 371.8 mGycm CONTRAST: CT scan of the abdomen is performed and without and with IV Contrast, patient injected with 100 mL of Isovue 300. FINDINGS: LUNG BASES-: No visible nodule. No infiltrate. Sliding-type hiatal hernia noted. LIVER/GB: Cholecystectomy clips are in place. No space occupying hepatic lesion. Biliary tree is o f normal caliber. PANCREAS: No inflammation. No distinct mass. SPLEEN: No splenic enlargement. No lesion seen. ADRENALS: 3.1 x 2.8 cm right adrenal nodule is noted. Precontrast Hounsfield unit measurement of 11.7 with postcontrast Hounsfield unit measurement of 23.4 Hounsfield units. Washout phase Hounsfield uni t measurement of 18. Left adrenal gland is unremarkable. KIDNEYS/BLADDER: No hydronephrosis. No nephrolithiasis. No distinct renal mass. Urinary bladder g rossly unremarkable. BOWEL: Visualized bowel loops are of normal caliber. LYMPH NODES: No greater than 1cm abdominal lymph nodes are appreciated. AORTA: No significant abnormality. OSSEOUS STRUCTURES: No significant abnormality is seen. OTHER: No significant additional abnormality is seen. IMPRESSION: 1. Nonspecific right adrenal lesion may reflect adenoma. Follow-up study in 6 months is advised.
== END | disposition home or self-care (01) ==
LOC: RADCTMAIN 09:19
PROVIDERS: ATTEND Urology
DX: D44.11 Neoplasm of uncertain behavior of right adrenal gland (principal)
CPT/HCPCS: 74170; Q9967

== ENCOUNTER → 2022-01-16 | Outpatient (CLI) | payer MEDICARE, BC ==
--- NOTE | 2022-01-19 08:39 | MM ---
Reason for Exam: Screening (asymptomatic). Last screening mammogram was performed 12 month(s) ago. Patient History: Menarche at age 14. First Full-Term at age 19. Postmenopausal. 2007, Core Biopsy on the Right side. Maternal cousin had breast cancer, age 24. Mother had breast cancer, age 75. Risk Values: Mally 5 year model risk: 3.5%. NCI Lifetime model risk: 7.1%. Prior Study Comparison: 12/21/2017 Bilateral Screening Mammogram, [facility]. 01/10/2019 Bilateral Screening Mammogram, [facility]. 12/25/2020 Bilateral Screening Mammogram, [facility]. Tissue Density: The breast tissue is heterogeneously dense. This may lower the sensitivity of mammography. Findings: Analyzed By CAD. Mammotome biopsy clip right breast near stable small obscured round nodule is redemonstrated. Benign-appearing right axillary lymph nodes are again seen. There are few scattered small benign-appearing round calcifications throughout the bilateral breasts redemonstrated. Left axillary pacemaker device again seen. There is no suspicious new group of microcalcifications or new distortion in either breast. Overall Assessment: Benign, BI-RAD 2 Management: Screening Mammogram of both breasts in 1 year. A clinical breast exam by your physician is recommended on an annual basis and results should be correlated with mammographic findings. Electronically signed and approved by: Loki Rosa M.D.
== END | disposition home or self-care (01) ==
LOC: RADMAMWWP 15:40
PROVIDERS: ATTEND Obstetrics & Gynecology
DX: Z12.31 Encounter for screening mammogram for malignant neoplasm of breast (principal)
CPT/HCPCS: 77063; 77067

== ENCOUNTER 2022-11-15 08:21 | Inpatient (IN) | payer MEDICARE, BC ==
[2022-11-15] MEDS ORDERED: SODIUM CHLORIDE 0.9% 500 ML 500 ML IV STA (08:38)
--- NOTE | 2022-11-15 09:00 | ED ---
Dizziness HPI - General Chief Complaint: Dizziness Stated Complaint: Dizziness Time Seen by Provider: 11/15/22 08:32 Source: patient, RN notes reviewed Mode of arrival: ambulatory Limitations: no limitations - History of Present Illness Initial Comments: 77-year-old female presents emergency Department with chief complaint of not feeling well. Patient states that this started a few days ago states that she started dry mouth, slight cough. Patient was recently treated for pneumonia. Patient states that she felt lightheaded today and dizzy. Denies chest pain or palpitation denies any abdominal pain she does admit that she's been slightly constipated without recent diarrhea dysuria or hematuria. - Related Data Home Medications Medication Instructions Recorded Confirmed Tolterodine Tartrate [Detrol LA] 4 mg PO DAILY 01/13/16 06/16/22 Esomeprazole Magnesium [NexIUM] 40 mg PO DAILY 06/01/18 06/16/22 Apixaban [Eliquis] 5 mg PO BID 05/25/22 06/16/22 Losartan Potassium 50 mg PO BID 06/16/22 06/16/22 Previous Rx's Medication Instructions Recorded atenoloL [Tenormin] 50 mg PO DAILY #90 tab 05/09/19 Ascorbic Acid [Vitamin C] 500 mg PO BID #0 tab 06/17/22 Cholecalciferol [Vitamin D3 (25 25 mcg PO DAILY tab 06/17/22 Mcg = 1000 Iu)] Nirmatrelvir/Ritonavir [Paxlovid 1 each PO BID 5 Days #1 each 06/17/22 300-100 mg Pack (Eua)] Pantoprazole Sodium [Protonix] 40 mg PO DAILY #30 tab 06/17/22 Zinc Sulfate [Orazinc] 220 mg PO DAILY #30 capsule 06/17/22 dexAMETHasone [Decadron] 6 mg PO DAILY #10 tablet 06/17/22 Allergies Allergy/AdvReac Type Severity Reaction Status Date / Time Penicillins Allergy Rash/Hives Verified 11/15/22 08:28 Review of Systems ROS Statement: Those systems with pertinent positive or pertinent negative responses have been documented in the HPI. ROS Other: All systems not noted in ROS Statement are negative. Past Medical History Past Medical History: GERD/Reflux, Hyperlipidemia, Hypertension, Syncope Additional Past Medical History / Comment(s): See Dr Glover H&P, cystocele with coil, hx migraines, hx ulcer, urinary leakage, Syncope feb- pt sent home with a holter monitor was found to be dolly- dual pacer placed 05/08/2019 History of Any Multi-Drug Resistant Organisms: None Reported Past Surgical History: Bladder Surgery, Cholecystectomy, Hernia Repair, Orthopedic Surgery, Pacemaker, Tonsillectomy, Tubal Ligation Additional Past Surgical History / Comment(s): R eye surgery FOR RETINAL TEAR , Rt carpal tunnel release, BLADDER COIL, cataract removed left eye Past Anesthesia/Blood Transfusion Reactions: Motion Sickness, Postoperative Nausea & Vomiting (PONV) Additional Past Anesthesia/Blood Transfusion Reaction / Comment(s): . Type of Cardiac Device: Permanent Pacemaker Device Placement Date:: 05/08/2019 Past Psychological History: No Psychological Hx Reported Smoking Status: Never smoker Past Alcohol Use History: None Reported Past Drug Use History: None Reported - Past Family History Brother(s) Family Medical History: Cancer Mother Family Medical History: Cancer Additional Family Medical History / Comment(s): MOTHER RECENTLY AT AGE 86YRS from CAD. HER CANCERS WERE OF THE BREAST AND THE BOWEL. General Exam Limitations: no limitations General appearance: alert, in no apparent distress Head exam: Present: atraumatic, normocephalic, normal inspection Eye exam: Present: normal appearance, PERRL, EOMI. Absent: scleral icterus, conjunctival injection, periorbital swelling ENT exam: Present: normal exam, mucous membranes moist Neck exam: Present: normal inspection, full ROM. Absent: tenderness, meningismus, lymphadenopathy Respiratory exam: Present: normal lung sounds bilaterally. Absent: respiratory distress, wheezes, rales, rhonchi, stridor Cardiovascular Exam: Present: regular rate, normal rhythm, normal heart sounds. Absent: systolic murmur, diastolic murmur, rubs, gallop, clicks GI/Abdominal exam: Present: soft, normal bowel sounds. Absent: distended, tenderness, guarding, rebound, rigid Course Vital Signs 11/15/22 11/15/22 11/15/22 08:26 09:19 11:23 Temperature 100 F H 101 F H Pulse Rate 62 75 73 Respiratory 18 18 20 Rate Blood Pressure 96/63 116/73 98/62 O2 Sat by Pulse 97 94 L 92 L Oximetry 11/15/22 11/15/22 12:06 12:16 Temperature Pulse Rate 76 82 Respiratory Rate Blood Pressure O2 Sat by Pulse Oximetry EKG Findings - EKG Comments: EKG Findings:: EKG for a: 35 sinus rhythm with rate of 79 NM 161 QRS 97 QT/QTC 355/389 - EKG Results: EKG: interpreted by BRITTANY Medical Decision Making - Medical Decision Making Was pt. sent in by a medical professional or institution (, SUSAN, AUTOMATIC BEADING LATHE OPERATOR, urgent care, hospital, or prison...) When possible be specific @ -No Did you speak to anyone other than the patient for history (EMS, parent, family, police, friend...)? What history was obtained from this source @ -No Did you review nursing and triage notes (agree or disagree)? Why? @ -I reviewed and agree with nursing and triage notes Were old charts reviewed (outside hosp., previous admission, EMS record, old EKG, old radiological studies, urgent care reports/EKG's, prison records)? Report findings @ -No old charts were reviewed Differential Diagnosis (chest pain, altered mental status, abdominal pain women, abdominal pain men, vaginal bleeding, weakness, fever, dyspnea, syncope, headache, dizziness, GI bleed, back pain, seizure, CVA, palpatations, mental health, musculoskeletal)? @ -[Differential Dizziness: Benign paroxysmal positional Vertigo, Menieres disease, otitis media, acoustic neuroma, vertebrobasilar insufficiency, cerebellar stroke, encephalitis, hypovolemic, arrhythmia, coronary artery syndrome, anemia, this is not meant to be an all-inclusive list EKG interpreted by me (3pts min.). @ -As above X-rays interpreted by me (1pt min.). @ -Chest x-ray shows evidence of right lower lobe pneumonia CT interpreted by me (1pt min.). @ -None done U/S interpreted by me (1pt. min.). @ -None done What testing was considered but not performed or refused? (CT, X-rays, U/S, labs)? Why? @ -None What meds were considered but not given or refused? Why? @ -None Did you discuss the management of the patient with other professionals (professionals i.e. , SUSAN, AUTOMATIC BEADING LATHE OPERATOR, lab, RT, psych nurse, aids social worker, unix consultant, teacher, maritime officer, case technician)? Give summary @ -Discussed the case with Dr. Romero recommends patient to be in patient with IV antibiotics and close monitoring. Was smoking cessation discussed for >3mins.? @ -No Was critical care preformed (if so, how long)? @ -No Were there social determinants of health that impacted care today? How? (Homelessness, low income, unemployed, alcoholism, drug addiction, transportation, low edu. Level, literacy, decrease access to med. care, penitentiary, rehab)? @ -No Was there de-escalation of care discussed even if they declined (Discuss DNR or withdrawal of care, Hospice)? DNR status @ -No What co-morbidities impacted this encounter? (DM, HTN, Smoking, COPD, CAD, Cancer, CVA, ARF, Chemo, Hep., AIDS, mental health diagnosis, sleep apnea, morbid obesity)? @ -Hypertension Was patient admitted / discharged? Hospital course, mention meds given and route, prescriptions, significant lab abnormalities, going to OR and other pertinent info. @ -Admitted patient found to have bilateral pneumonia, patient has been mildly hypoxic with mild hypotension. Patient was given fluids as well as, maintenance fluids, IV antibiotics and admitted. Undiagnosed new problem with uncertain prognosis? @ -No Drug Therapy requiring intensive monitoring for toxicity (Heparin, Nitro, Insulin, Cardizem)? @ -No Were any procedures done? @ -No Diagnosis/p Pneumonia Acute, or Chronic, or Acute on Chronic? @ -Acute Uncomplicated (without systemic symptoms) or Complicated (systemic symptoms)? @ -, Complicated Side effects of treatment? @ -No Exacerbation, Progression, or Severe Exacerbation? @ -No Poses a threat to life or bodily function? How? (Chest pain, USA, DC, pneumonia, PE, COPD, DKA, ARF, appy, cholecystitis, CVA, Diverticulitis, Homicidal, Suicidal, threat to staff... and all critical care pts) @ -Yes patient risk for sepsis, possible respiratory failure - Lab Data Result diagrams: 11/15/22 08:56 11/15/22 08:56 Lab Results 11/15/22 11/15/22 11/15/22 Range/Units 08:56 08:56 08:56 WBC 9.2 (3.8-10.6) k/uL RBC 4.55 (3.80-5.40) m/uL Hgb 13.3 (11.4-16.0) gm/dL Hct 39.4 (34.0-46.0) % MCV 86.6 (80.0-100.0) fL MCH 29.2 (25.0-35.0) pg MCHC 33.7 (31.0-37.0) g/dL RDW 13.0 (11.5-15.5) % Plt Count 161 (150-450) k/uL MPV 8.5 Neutrophils % 89 % Lymphocytes % 4 % Monocytes % 5 % Eosinophils % 1 % Basophils % 0 % Neutrophils # 8.2 H (1.3-7.7) k/uL Lymphocytes # 0.4 L (1.0-4.8) k/uL Monocytes # 0.5 (0-1.0) k/uL Eosinophils # 0.1 (0-0.7) k/uL Basophils # 0.0 (0-0.2) k/uL Sodium 138 (137-145) mmol/L Potassium 3.7 (3.5-5.1) mmol/L Chloride 107 (98-107) mmol/L Carbon Dioxide 26 (22-30) mmol/L Anion Gap 5 mmol/L BUN 13 (7-17) mg/dL Creatinine 0.60 (0.52-1.04) mg/dL Est GFR (CKD-EPI)AfAm >90 (>60 ml/min/1.73 sqM) Est GFR (CKD-EPI)NonAf 88 (>60 ml/min/1.73 sqM) Glucose 136 H (74-99) mg/dL Lactic Ac Sepsis Rflx Plasma Lactic Acid Edgar (0.7-2.0) mmol/L Calcium 9.0 (8.4-10.2) mg/dL Total Bilirubin 0.8 (0.2-1.3) mg/dL AST 27 (14-36) U/L ALT 24 (4-34) U/L Alkaline Phosphatase 78 (38-126) U/L Troponin I (0.000-0.034) ng/mL Total Protein 6.0 L (6.3-8.2) g/dL Albumin 3.6 (3.5-5.0) g/dL Urine Color Yellow Urine Appearance Clear (Clear) Urine pH 6.0 (5.0-8.0) Ur Specific [place] 1.020 (1.001-1.035) Urine Protein Trace (Negative) Urine Glucose (UA) Negative (Negative) Urine Ketones Negative (Negative) Urine Blood Negative (Negative) Urine Nitrite Negative (Negative) Urine Bilirubin Negative (Negative) Urine Urobilinogen <2.0 (<2.0) mg/dL Ur Leukocyte Esterase Large (Negative) Urine WBC 10 H (0-5) /hpf Ur Squamous Epith Cells 4 (0-4) /hpf Urine Bacteria Moderate H (None) /hpf Coronavirus (PCR) (Not Detectd) 11/15/22 11/15/22 11/15/22 Range/Units 08:56 08:56 09:35 WBC (3.8-10.6) k/uL RBC (3.80-5.40) m/uL Hgb (11.4-16.0) gm/dL Hct (34.0-46.0) % MCV (80.0-100.0) fL MCH (25.0-35.0) pg MCHC (31.0-37.0) g/dL RDW (11.5-15.5) % Plt Count (150-450) k/uL MPV Neutrophils % % Lymphocytes % % Monocytes % % Eosinophils % % Basophils % % Neutrophils # (1.3-7.7) k/uL Lymphocytes # (1.0-4.8) k/uL Monocytes # (0-1.0) k/uL Eosinophils # (0-0.7) k/uL Basophils # (0-0.2) k/uL Sodium (137-145) mmol/L Potassium (3.5-5.1) mmol/L Chloride (98-107) mmol/L Carbon Dioxide (22-30) mmol/L Anion Gap mmol/L BUN (7-17) mg/dL Creatinine (0.52-1.04) mg/dL Est GFR (CKD-EPI)AfAm (>60 ml/min/1.73 sqM) Est GFR (CKD-EPI)NonAf (>60 ml/min/1.73 sqM) Glucose (74-99) mg/dL Lactic Ac Sepsis Rflx Plasma Lactic Acid Edgar 2.3 H* (0.7-2.0) mmol/L Calcium (8.4-10.2) mg/dL Total Bilirubin (0.2-1.3) mg/dL AST (14-36) U/L ALT (4-34) U/L Alkaline Phosphatase (38-126) U/L Troponin I <0.012 (0.000-0.034) ng/mL Total Protein (6.3-8.2) g/dL Albumin (3.5-5.0) g/dL Urine Color Urine Appearance (Clear) Urine pH (5.0-8.0) Ur Specific [place] (1.001-1.035) Urine Protein (Negative) Urine Glucose (UA) (Negative) Urine Ketones (Negative) Urine Blood (Negative) Urine Nitrite (Negative) Urine Bilirubin (Negative) Urine Urobilinogen (<2.0) mg/dL Ur Leukocyte Esterase (Negative) Urine WBC (0-5) /hpf Ur Squamous Epith Cells (0-4) /hpf Urine Bacteria (None) /hpf Coronavirus (PCR) Not Detected (Not Detectd) 11/15/22 Range/Units 09:37 WBC (3.8-10.6) k/uL RBC (3.80-5.40) m/uL Hgb (11.4-16.0) gm/dL Hct (34.0-46.0) % MCV (80.0-100.0) fL MCH (25.0-35.0) pg MCHC (31.0-37.0) g/dL RDW (11.5-15.5) % Plt Count (150-450) k/uL MPV Neutrophils % % Lymphocytes % % Monocytes % % Eosinophils % % Basophils % % Neutrophils # (1.3-7.7) k/uL Lymphocytes # (1.0-4.8) k/uL Monocytes # (0-1.0) k/uL Eosinophils # (0-0.7) k/uL Basophils # (0-0.2) k/uL Sodium (137-145) mmol/L Potassium (3.5-5.1) mmol/L Chloride (98-107) mmol/L Carbon Dioxide (22-30) mmol/L Anion Gap mmol/L BUN (7-17) mg/dL Creatinine (0.52-1.04) mg/dL Est GFR (CKD-EPI)AfAm (>60 ml/min/1.73 sqM) Est GFR (CKD-EPI)NonAf (>60 ml/min/1.73 sqM) Glucose (74-99) mg/dL Lactic Ac Sepsis Rflx Y Plasma Lactic Acid Edgar (0.7-2.0) mmol/L Calcium (8.4-10.2) mg/dL Total Bilirubin (0.2-1.3) mg/dL AST (14-36) U/L ALT (4-34) U/L Alkaline Phosphatase (38-126) U/L Troponin I (0.000-0.034) ng/mL Total Protein (6.3-8.2) g/dL Albumin (3.5-5.0) g/dL Urine Color Urine Appearance (Clear) Urine pH (5.0-8.0) Ur Specific [place] (1.001-1.035) Urine Protein (Negative) Urine Glucose (UA) (Negative) Urine Ketones (Negative) Urine Blood (Negative) Urine Nitrite (Negative) Urine Bilirubin (Negative) Urine Urobilinogen (<2.0) mg/dL Ur Leukocyte Esterase (Negative) Urine WBC (0-5) /hpf Ur Squamous Epith Cells (0-4) /hpf Urine Bacteria (None) /hpf Coronavirus (PCR) (Not Detectd) Disposition Clinical Impression: Pneumonia, Hypoxia Disposition: ADMITTED IP TO THIS HOSP Condition: Fair Referrals: Chacorta Romero MD [Primary Care Provider] - 1-2 days Time of Disposition: 13:41
[2022-11-15 09:36] LABS: ALT 24 U/L (4-34); AST 27 U/L (14-36); African American GFR (CKD) >90 (>60 ml/min/1.73 sqM); Albumin 3.6 g/dL (3.5-5.0); Alkaline Phosphatase 78 U/L (38-126); Anion Gap 5 mmol/L; Blood Urea Nitrogen 13 mg/dL (7-17); Carbon Dioxide 26 mmol/L (22-30); Chloride 107 mmol/L (98-107); Glucose 136 mg/dL (74-99); Non-African American GFR(CKD) 88 (>60 ml/min/1.73 sqM); Potassium 3.7 mmol/L (3.5-5.1); Sodium 138 mmol/L (137-145); Total Bilirubin 0.8 mg/dL (0.2-1.3)
--- NOTE | 2022-11-15 09:37 | XR ---
EXAMINATION TYPE: XR chest 2V DATE OF EXAM: 11/15/2022 9:14 AM COMPARISON: Chest radiographs from 06/16/2022. TECHNIQUE: XR chest 2V Frontal and lateral views of the chest. CLINICAL INDICATION:Female, 77 years old with history of weakness; FINDINGS: Lungs/Pleura: Airspace opacities predominantly in the right lung and inferiorly. There is no evidence of pleural effusion, or pneumothorax. Pulmonary vascularity: Unremarkable. Heart/mediastinum: Cardiomediastinal silhouette is unremarkable. Musculoskeletal: No acute osseous pathology. IMPRESSION: Right lower lung airspace opacities correlate for pneumonia.
[2022-11-15 09:43] LABS: Basophils % (A) 0 %; Eosinophils # (A) 0.1 k/uL (0-0.7); Eosinophils % (A) 1 %; HCT 39.4 % (34.0-46.0); HGB 13.3 gm/dL (11.4-16.0); Lymphocytes # (A) 0.4 k/uL (1.0-4.8); Lymphocytes % (A) 4 %; MCH 29.2 pg (25.0-35.0); MCHC 33.7 g/dL (31.0-37.0); MCV 86.6 fL (80.0-100.0); Mean Platelet Volume 8.5; Monocytes # (A) 0.5 k/uL (0-1.0); Monocytes % (A) 5 %; Neutrophils # (A) 8.2 k/uL (1.3-7.7); Neutrophils % (A) 89 %; Platelet Count 161 k/uL (150-450); RBC 4.55 m/uL (3.80-5.40); WBC 9.2 k/uL (3.8-10.6)
[2022-11-15] MEDS ORDERED: ACETAMINOPHEN TAB 500 MG TAB PO STA (11:26)
[2022-11-15] MEDS ORDERED: IPRATROPIUM-ALBUTEROL 3 ML NEB INHALATION STA (11:26)
[2022-11-15 13:15] LABS: Appearance,Urine Clear (Clear); Color,Urine Yellow
[2022-11-15 13:16] LABS: Bilirubin,Urine Negative (Negative); Blood,Urine Negative (Negative); Glucose,Urine (UA) Negative (Negative); Ketones,Urine Negative (Negative); Leukocyte Esterase,Urine Large (Negative); Nitrite,Urine Negative (Negative); Protein,Urine Trace (Negative); Squamous Epithelial Cell,Urine 4 /hpf (0-4); Urobilinogen,Urine <2.0 mg/dL (<2.0); WBC,Urine 10 /hpf (0-5)
[2022-11-15 13:17] LABS: Bacteria,Urine Moderate /hpf
[2022-11-15] MEDS ORDERED: SODIUM CHLORIDE 0.9% 500 ML 500 ML IV ONE (13:29)
[2022-11-15] MEDS ORDERED: AZITHROMYCIN 500 MG in SODIUM CHLORIDE 0.9% 250 ML IVPB STA (13:29)
[2022-11-15] MEDS ORDERED: PNEUMONIA PROTOCOL UTILIZED 1 EACH MISC PO PRN (13:33)
[2022-11-15] MEDS ORDERED: IPRATROPIUM-ALBUTEROL 3 ML NEB INHALATION PRN (13:33)
[2022-11-15] MEDS: SODIUM CHLORIDE 0.9% 1,000 ML IV SCH (22:14)
[2022-11-16] MEDS: SODIUM CHLORIDE 0.9% 1,000 ML IV SCH ×2 (06:44→15:15)
--- NOTE | 2022-11-16 07:28 | XR ---
EXAMINATION TYPE: XR chest 2V DATE OF EXAM: 11/16/2022 6:30 AM COMPARISON: Chest radiographs from 11/15/2022 TECHNIQUE: XR chest 2V Frontal and lateral views of the chest. CLINICAL INDICATION:Female, 77 years old with history of pneumonia; FINDINGS: Lungs/Pleura: Improved aeration of lungs on today's exam with persistent airspace opacities scattered throughout the right lower lung. No evidence of pneumothorax or large pleural effusion. Pulmonary vascularity: Unremarkable. Heart/mediastinum: Cardiomediastinal silhouette is unremarkable. Two lead cardiac conduction device o verlying the left hemithorax with lead tips projecting over the right ventricle and right atrium. Musculoskeletal: No acute osseous pathology. IMPRESSION: Improved aeration of the right lower lung airspace opacities. Could be related to patient's inspirati onal effort.
[2022-11-16] MEDS: PANTOPRAZOLE 40 MG/10 ML VIAL IVP SCH (12:20)
[2022-11-16] MEDS: CHOLECALCIFEROL 25 MCG (1000 IU) TABLET PO SCH (12:20)
[2022-11-16] MEDS: ATORVASTATIN 40 MG TAB PO SCH (12:20)
--- NOTE | 2022-11-16 13:43 | P.HPIM ---
History of Present Illness H&P Date: 11/16/22 Chief Complaint: Nausea, vomiting, weakness This is a 77-year-old female presented to the ER with complaints of nausea, emesis , generalized weakness and fevers, in a patient with history of recent covid pneumonia 06/11, sick sinus syndrome, pacemaker, vertigo, cholecystectomy and multiple other medical issues. Denies cough, congestion. T-max 101, lactic acid on admission 2.3, resolved currently down to 0.9 with IV fluid hydration. Maintaining O2 sats of 97% on 2 L nasal cannula. Tested negative for coronavirus. Electrolytes, renal function stable. Troponin negative. Denies chest pain, palpitations or shortness of breath. UA reported moderate bacteria, large leukocytes, 10 WBCs, negative nitrates. Denies urinary frequency, dysuria or hematuria. Hemoglobin 13.3, platelets 161. Blood cultures in progress. Zithromax and ceftriaxone initiated. Currently complains of dry heaves. Initial chest x-ray reported right lower lung airspace opacity in the right lung. Repeat chest x-ray reported improved aeration of the right lower lung airspace opacity possibly related to patient's inspirational effort. Review of Systems ROS Statement: Those systems with pertinent positive or pertinent negative responses have been documented in the HPI. ROS Other: All systems not noted in ROS Statement are negative. Past Medical History Past Medical History: GERD/Reflux, Hyperlipidemia, Hypertension, Syncope Additional Past Medical History / Comment(s): See Dr Glover H&P, cystocele with coil, hx migraines, hx ulcer, urinary leakage, Syncope feb- pt sent home with a holter monitor was found to be dolly- dual pacer placed 05/08/2019 History of Any Multi-Drug Resistant Organisms: None Reported Past Surgical History: Bladder Surgery, Cholecystectomy, Hernia Repair, Orthope dic Surgery, Pacemaker, Tonsillectomy, Tubal Ligation Additional Past Surgical History / Comment(s): R eye surgery FOR RETINAL TEAR , Rt carpal tunnel release, BLADDER COIL, cataract removed left eye Past Anesthesia/Blood Transfusion Reactions: Motion Sickness, Postoperative Nausea & Vomiting (PONV) Additional Past Anesthesia/Blood Transfusion Reaction / Comment(s): . Type of Cardiac Device: Permanent Pacemaker Device Placement Date:: 05/08/2019 Past Psychological History: No Psychological Hx Reported Smoking Status: Never smoker Past Alcohol Use History: None Reported Past Drug Use History: None Reported - Past Family History Brother(s) Family Medical History: Cancer Mother Family Medical History: Cancer Additional Family Medical History / Comment(s): MOTHER RECENTLY AT AGE 86YRS from CAD. HER CANCERS WERE OF THE BREAST AND THE BOWEL. Medications and Allergies Home Medications Medication Instructions Recorded Confirmed Type Tolterodine Tartrate [Detrol LA] 4 mg PO DAILY 01/13/16 11/15/22 History Esomeprazole Magnesium [NexIUM] 40 mg PO DAILY 06/01/18 11/15/22 History atenoloL [Tenormin] 50 mg PO DAILY #90 tab 05/09/19 11/15/22 Rx Apixaban [Eliquis] 5 mg PO BID 05/25/22 11/15/22 History Losartan Potassium 100 mg PO DAILY 06/16/22 11/15/22 History Cholecalciferol [Vitamin D3 (25 25 mcg PO DAILY tab 06/17/22 11/15/22 Rx Mcg = 1000 Iu)] Multivit-Min/Iron/Folic/Lutein 1 tab PO DAILY 11/15/22 11/15/22 History [Centrum Silver Women Tablet] Rosuvastatin [Crestor] 20 mg PO DAILY 11/15/22 11/15/22 History Allergies Allergy/AdvReac Type Severity Reaction Status Date / Time Penicillins Allergy Rash/Hives Verified 11/15/22 18:23 Physical Exam Vitals: Vital Signs Temp Pulse Pulse Resp BP BP Pulse Ox 11/16/22 07:33 97.4 F L 56 L 17 114/71 97 11/16/22 02:00 99.4 F 59 L 18 97/58 96 11/15/22 20:39 98.2 F 61 19 98/60 95 11/15/22 15:00 98.7 F 60 16 95/58 97 11/15/22 14:29 98.3 F 76 18 100/60 95 11/15/22 14:12 67 18 88/54 90 L Intake and Output 11/15/22 11/16/22 11/16/22 22:59 06:59 14:59 Intake Total 300 Balance 300 Intake: Intake, IV Titration 300 Amount Azithromycin 500 mg In 250 Sodium Chloride 0.9% 250 ml @ 250 mls/hr IVPB Q24H [facility] Rx#:[id number] cefTRIAXone 2 gm In 50 Sodium Chloride 0.9% 50 ml @ 100 mls/hr IVPB Q24HR [facility] Rx#:[id number] Other: # Voids 2 General: [Patient awake, alert and oriented times 3. Patient in no acute distress.] HEENT: [PERRL. EOMI. No pharyngeal erythema or exudate.MMM.] Neck: [Supple, no JVD ,No adenopathy.] Cardiac: [Heart regular in rate and rhythm. No S3. No S4. No clicks, rubs. No murmur Lungs: [Clear to auscultation bilaterally.] Abdomen: [Soft , nondistended, nontender ,No mass appreciated. No rigidity, no guarding. Bowel sounds present. Extremes: [No edema no cyanosis no claudication normal pulses] Skin: [Warm and dry, No rash.] Neurologic: [No lateralizing deficits. CN II - XII grossly intact.] Results CBC & Chem 7: 11/15/22 08:56 11/15/22 08:56 Labs: Abnormal Lab Results - Last 24 Hours (Table) 11/15/22 Range/Units 18:51 Plasma Lactic Acid Edgar 2.3 H* (0.7-2.0) mmol/L Thrombosis Risk Factor Assmnt - Choose All That Apply Any of the Below Risk Factors Present?: Yes Each Factor Represents 1 point: Obesity (BMI >25) Other Risk Factors: Yes Each Risk Factor Represents 3 Points: Age 75 years or older Thrombosis Risk Factor Assessment Total Risk Factor Score: 4 Thrombosis Risk Factor Assessment Level: Moderate Risk Assessment and Plan Assessment: Nausea, vomiting with increased generalized weakness, acute viral gastritis, ruling out influenza B Lactic acidosis, resolved with IV fluid hydration History of right-sided Covid pneumonia, 06/11 History of sick sinus syndrome with pacemaker Plan: Continue on current medication regime ,monitoring and symptomatic treatment. Maintain IV antibiotics, gentle IV fluid hydration, PPI. Pro- calcitonin, influenza A and B PCR ordered. PT/OT ordered. The impression and plan of care has been dictated as directed. : I performed a history and examination of this patient, discussed the same with the dictator. I agree with the dictator's note ,documented as a scribe. Any additional findings or plans will be noted.
[2022-11-16] MEDS ORDERED: ACETAMINOPHEN TAB 500 MG TAB PO PRN (15:11)
[2022-11-16] MEDS: APIXABAN 5 MG TAB PO SCH ×2 (15:14→21:49)
[2022-11-16] MEDS: AZITHROMYCIN 500 MG in SODIUM CHLORIDE 0.9% 250 ML IVPB SCH (15:15)
[2022-11-17] MEDS: SODIUM CHLORIDE 0.9% 1,000 ML IV SCH ×2 (06:26→17:29)
[2022-11-17] MEDS: PANTOPRAZOLE 40 MG/10 ML VIAL IVP SCH (08:16)
[2022-11-17] MEDS: atenoloL 50 MG TAB PO SCH (09:54)
[2022-11-17] MEDS: APIXABAN 5 MG TAB PO SCH ×2 (09:54→21:13)
[2022-11-17] MEDS: OXYBUTYNIN 10 MG TAB.ER.24 PO SCH (09:54)
[2022-11-17] MEDS: ATORVASTATIN 40 MG TAB PO SCH (09:54)
[2022-11-17] MEDS: CHOLECALCIFEROL 25 MCG (1000 IU) TABLET PO SCH (09:55)
[2022-11-17] MEDS: LOSARTAN 50 MG TAB PO SCH (11:00)
[2022-11-17] MEDS: ONDANSETRON 4 MG/2 ML VIAL IVP PRN ×2 (11:00→21:13)
[2022-11-17] MEDS: METOCLOPRAMIDE 5 MG/ML 2 ML VIAL IVP SCH ×2 (12:02→17:28)
[2022-11-17 14:08] LABS: Basophils # (A) 0.02 X 10*3/uL (0.00-0.10); Basophils % (A) 0.2 %; Eosinophils # (A) 0.11 X 10*3/uL (0.04-0.35); Eosinophils % (A) 1.2 %; HCT 34.6 % (37.2-46.3); HGB 11.2 d/dL (12.0-15.0); Lymphocytes # (A) 1.03 X 10*3/uL (0.90-5.00); Lymphocytes % (A) 10.9 %; MCH 28.6 pg (27.0-32.0); MCHC 32.4 d/dL (32.0-37.0); MCV 88.3 FL (80.0-97.0); Monocytes # (A) 0.53 X 10*3/uL (0.20-1.00); Monocytes % (A) 5.6 %; NRBC Per 100 WBC 0 X 10*3/uL (0.00-0.01); Neutrophils # (A) 7.77 X 10*3/uL (1.80-7.70); Neutrophils % (A) 81.8 %; Platelet Count 162 X 10*3/uL (140-440); RBC 3.92 X 10*6/uL (4.10-5.20); RDW 13.4 % (11.5-14.5); WBC 9.49 X 10*3/uL (4.50-10.00)
--- NOTE | 2022-11-17 14:23 | P.PN ---
Subjective Progress Note Date: 11/17/22 H&P Date: 11/16/22 Chief Complaint: Nausea, vomiting, weakness This is a 77-year-old female presented to the ER with complaints of nausea, emesis , generalized weakness and fevers, in a patient with history of recent covid pneumonia 06/11, sick sinus syndrome, pacemaker, vertigo, cholecystectomy and multiple other medical issues. Denies cough, congestion. T-max 101, lactic acid on admission 2.3, resolved currently down to 0.9 with IV fluid hydration. Maintaining O2 sats of 97% on 2 L nasal cannula. Tested negative for coronavirus. Electrolytes, renal function stable. Troponin negative. Denies chest pain, palpitations or shortness of breath. UA reported moderate bacteria, large leukocytes, 10 WBCs, negative nitrates. Denies urinary frequency, dysuria or hematuria. Hemoglobin 13.3, platelets 161. Blood cultures in progress. Zithromax and ceftriaxone initiated. Currently complains of dry heaves. Initial chest x-ray reported right lower lung airspace opacity in the right lung. Repeat chest x-ray reported improved aeration of the right lower lung airspace opacity possibly related to patient's inspirational effort. 11/17/2022 Maintained on IV antibiotics of ceftriaxone and azithromycin. protocol calcitonin elevated ,6.96, influenza A and B, negative. Urine culture pending. Afebrile, T-max 99.5. Occasional nonproductive cough. Ongoing nausea with emesis of foamy spit. Reports salty taste in mouth. Objective - Vital Signs Vital signs: Vital Signs Temp 96.9 F L 11/17/22 07:28 Pulse 68 11/17/22 07:28 Resp 16 11/17/22 07:28 BP 173/73 11/17/22 07:28 Pulse Ox 94 L 11/17/22 08:53 FiO2 Intake & Output 11/16/22 11/17/22 11/17/22 18:59 06:59 18:59 Other: # Voids 5 2 # Bowel Movements 1 - Exam General: [Patient awake, alert and oriented times 3. no acute distress, naus eated.] HEENT: [PERRL. EOMI.MMM.] Neck: [Supple, no JVD ,] Cardiac: [Heart regular in rate and rhythm. No S3. No S4. No clicks, rubs. No murmur Lungs: [Unlabored, Clear to auscultation bilaterally.] Abdomen: [Soft , nondistended, nontender ,No mass appreciated. No rigidity, no guarding. Bowel sounds present. Extremes: [No edema no cyanosis no claudication normal pulses] Skin: [Warm and dry, No rash.] Neurologic: [No lateralizing deficits. CN II - XII grossly intact.] - Labs CBC & Chem 7: 11/17/22 07:01 11/15/22 08:56 Labs: Abnormal Lab Results - Last 24 Hours (Table) 11/16/22 Range/Units 12:15 Procalcitonin 6.96 H (0.02-0.09) ng/mL Microbiology - Last 24 Hours (Table) 11/15/22 09:10 Blood Culture - Preliminary Blood 11/15/22 08:58 Blood Culture - Preliminary Blood Assessment and Plan Assessment: Nausea, vomiting with increased generalized weakness, acute viral gastritis, ruling out influenza B Lactic acidosis, resolved with IV fluid hydration History of right-sided Covid pneumonia, 06/11 History of sick sinus syndrome with pacemaker Plan: Continue on current medication regime ,monitoring and symptomatic treatment. Urine culture pending. Amylase/lipase added to prior labs, results pending. Continue IV antibiotics, gentle IV fluid hydration, PPI. Antiemetics ordered. The impression and plan of care has been dictated as directed. : I performed a history and examination of this patient, discussed the same with the dictator. I agree with the dictator's note ,documented as a scribe. Any additional findings or plans will be noted.
[2022-11-17 14:38] LABS: Blood Urea Nitrogen 6.2 mg/dL (9.0-27.0); Calcium 8.6 mg/dL (8.7-10.3); Carbon Dioxide 25.9 mmol/L (21.6-31.8); Chloride 108 mmol/L (96-109); Glucose 100 mg/dL (70-110); Potassium 3.8 mmol/L (3.5-5.5); Sodium 143 mmol/L (135-145)
[2022-11-17] MEDS: AZITHROMYCIN 500 MG in SODIUM CHLORIDE 0.9% 250 ML IVPB SCH (15:45)
[2022-11-17 21:54] LABS: HCT 34.6 % (37.2-46.3); MCH 27.7 pg (27.0-32.0); MCHC 31.8 d/dL (32.0-37.0); MCV 87.2 FL (80.0-97.0); Mean Platelet Volume 11.1 FL (9.5-12.2); NRBC Per 100 WBC 0 X 10*3/uL (0.00-0.01); Platelet Count 157 X 10*3/uL (140-440); RBC 3.97 X 10*6/uL (4.10-5.20); RDW 13.1 % (11.5-14.5); WBC 9.57 X 10*3/uL (4.50-10.00)
[2022-11-17 22:03] LABS: Amylase 34 U/L (23-121); Lipase 14 U/L (14-63)
[2022-11-18] MEDS: METOCLOPRAMIDE 5 MG/ML 2 ML VIAL IVP SCH ×5 (00:42→23:43)
[2022-11-18] MEDS: PANTOPRAZOLE 40 MG/10 ML VIAL IVP SCH (08:34)
[2022-11-18] MEDS: SODIUM CHLORIDE 0.9% 1,000 ML IV SCH ×2 (08:34→20:57)
[2022-11-18] MEDS: atenoloL 50 MG TAB PO SCH (08:43)
[2022-11-18] MEDS: OXYBUTYNIN 10 MG TAB.ER.24 PO SCH (08:44)
[2022-11-18] MEDS: LOSARTAN 50 MG TAB PO SCH (08:44)
[2022-11-18] MEDS: APIXABAN 5 MG TAB PO SCH ×2 (08:44→20:54)
[2022-11-18] MEDS: ATORVASTATIN 40 MG TAB PO SCH (08:44)
[2022-11-18] MEDS: CHOLECALCIFEROL 25 MCG (1000 IU) TABLET PO SCH (08:44)
[2022-11-18 11:53] LABS: Basophils # (A) 0.02 X 10*3/uL (0.00-0.10); Basophils % (A) 0.4 %; Eosinophils % (A) 1.8 %; HGB 10.6 d/dL (12.0-15.0); Lymphocytes # (A) 1.23 X 10*3/uL (0.90-5.00); Lymphocytes % (A) 22.2 %; MCH 28.1 pg (27.0-32.0); MCHC 32.1 d/dL (32.0-37.0); MCV 87.5 FL (80.0-97.0); Mean Platelet Volume 10.8 FL (9.5-12.2); Monocytes # (A) 0.39 X 10*3/uL (0.20-1.00); NRBC Per 100 WBC 0 X 10*3/uL (0.00-0.01); Neutrophils # (A) 3.79 X 10*3/uL (1.80-7.70); Neutrophils % (A) 68.4 %; Platelet Count 162 X 10*3/uL (140-440); RBC 3.77 X 10*6/uL (4.10-5.20); WBC 5.54 X 10*3/uL (4.50-10.00)
[2022-11-18 12:13] LABS: Blood Urea Nitrogen 6.6 mg/dL (9.0-27.0); Calcium 8.8 mg/dL (8.7-10.3); Chloride 107 mmol/L (96-109); Glucose 90 mg/dL (70-110); Potassium 3.9 mmol/L (3.5-5.5); Sodium 142 mmol/L (135-145)
--- NOTE | 2022-11-18 14:09 | P.PN ---
Subjective Progress Note Date: 11/18/22 H&P Date: 11/16/22 Chief Complaint: Nausea, vomiting, weakness This is a 77-year-old female presented to the ER with complaints of nausea, emesis , generalized weakness and fevers, in a patient with history of recent covid pneumonia 06/11, sick sinus syndrome, pacemaker, vertigo, cholecystectomy and multiple other medical issues. Denies cough, congestion. T-max 101, lactic acid on admission 2.3, resolved currently down to 0.9 with IV fluid hydration. Maintaining O2 sats of 97% on 2 L nasal cannula. Tested negative for coronavirus. Electrolytes, renal function stable. Troponin negative. Denies chest pain, palpitations or shortness of breath. UA reported moderate bacteria, large leukocytes, 10 WBCs, negative nitrates. Denies urinary frequency, dysuria or hematuria. Hemoglobin 13.3, platelets 161. Blood cultures in progress. Zithromax and ceftriaxone initiated. Currently complains of dry heaves. Initial chest x-ray reported right lower lung airspace opacity in the right lung. Repeat chest x-ray reported improved aeration of the right lower lung airspace opacity possibly related to patient's inspirational effort. 11/17/2022 Maintained on IV antibiotics of ceftriaxone and azithromycin. protocol calcitonin elevated ,6.96, influenza A and B, negative. Urine culture pending. Afebrile, T-max 99.5. Occasional nonproductive cough. Ongoing nausea with emesis of foamy spit. Reports salty taste in mouth. 11/18/2022 continues on IV antibiotics, maintaining O2 sats in the 90s on room air. Afebrile, normal WBC. Urine culture pending.Hemoglobin 10.6, platelets 162. Renal function stable. Consumed 50% of breakfast /lunch. Amylase 34, lipase 14. Nausea, abdominal discomfort significantly improved. Reports infrequent nonproductive cough. Denies chest pain, palpitations or increased shortness of breath. Objective - Vital Signs Vital signs: Vital Signs Temp 98.7 F 11/18/22 13:36 Pulse 60 11/18/22 13:36 Resp 17 11/18/22 13:36 BP 157/79 11/18/22 13:36 Pulse Ox 94 L 11/18/22 13:44 FiO2 Intake & Output 11/17/22 11/18/22 11/18/22 18:59 06:59 18:59 Other: # Voids 4 2 - Exam General: [Patient awake, alert and oriented times 3. no acute distress.] HEENT: [PERRL. EOMI.MMM.] Neck: [Supple, no JVD ,] Cardiac: [Heart regular in rate and rhythm. No S3. No S4. No clicks, rubs. No murmur Lungs: [Unlabored, Clear to auscultation bilaterally.] Abdomen: [Soft , nondistended, diffuse abdominal tenderness ,No mass appreciated. No rigidity, no guarding. Bowel sounds present. Extremes: [No edema no cyanosis no claudication normal pulses] Skin: [Warm and dry, No rash.] Neurologic: [No lateralizing deficits. CN II - XII grossly intact.] - Labs CBC & Chem 7: 11/18/22 07:17 11/18/22 07:17 Labs: Abnormal Lab Results - Last 24 Hours (Table) 11/17/22 11/17/22 11/17/22 Range/Units 07:01 07:01 15:18 RBC 3.92 L 3.97 L (4.10-5.20) X 10*6/uL Hgb 11.2 L 11.0 L (12.0-15.0) d/dL Hct 34.6 L 34.6 L (37.2-46.3) % MCHC 31.8 L (32.0-37.0) d/dL Neutrophils # 7.77 H (1.80-7.70) X 10*3/uL BUN 6.2 L (9.0-27.0) mg/dL Creatinine 0.5 L (0.6-1.5) mg/dL BUN/Creatinine Ratio (12.00-20.00) Ratio Calcium 8.6 L (8.7-10.3) mg/dL 11/18/22 11/18/22 Range/Units 07:17 07:17 RBC 3.77 L (4.10-5.20) X 10*6/uL Hgb 10.6 L (12.0-15.0) d/dL Hct 33.0 L (37.2-46.3) % MCHC (32.0-37.0) d/dL Neutrophils # (1.80-7.70) X 10*3/uL BUN 6.6 L (9.0-27.0) mg/dL Creatinine (0.6-1.5) mg/dL BUN/Creatinine Ratio 11.00 L (12.00-20.00) Ratio Calcium (8.7-10.3) mg/dL Microbiology - Last 24 Hours (Table) 11/15/22 09:10 Blood Culture - Preliminary Blood 11/15/22 08:58 Blood Culture - Preliminary Blood Assessment and Plan Assessment: Nausea, vomiting with increased generalized weakness, possible acute viral gastritis-though viral studies negative. Suspect acute UTI, culture in progress. Lactic acidosis, resolved with IV fluid hydration History of right-sided Covid pneumonia, 06/11 History of sick sinus syndrome with pacemaker Plan: Continue on current medication regime ,monitoring and symptomatic treatment. Maintain IV antibiotics, gentle IV fluid hydration. Discharge planning in progress pending urine culture results. The impression and plan of care has been dictated as directed. : I performed a history and examination of this patient, discussed the same with the dictator. I agree with the dictator's note ,documented as a scribe. Any additional findings or plans will be noted.
[2022-11-18] MEDS: AZITHROMYCIN 500 MG in SODIUM CHLORIDE 0.9% 250 ML IVPB SCH (15:28)
[2022-11-19] MEDS: METOCLOPRAMIDE 5 MG/ML 2 ML VIAL IVP SCH ×2 (05:56→11:35)
[2022-11-19] MEDS: PANTOPRAZOLE 40 MG/10 ML VIAL IVP SCH (08:32)
[2022-11-19] MEDS: atenoloL 50 MG TAB PO SCH (09:53)
[2022-11-19] MEDS: ATORVASTATIN 40 MG TAB PO SCH (09:53)
[2022-11-19] MEDS: CHOLECALCIFEROL 25 MCG (1000 IU) TABLET PO SCH (09:53)
[2022-11-19] MEDS: APIXABAN 5 MG TAB PO SCH (09:53)
[2022-11-19] MEDS: OXYBUTYNIN 10 MG TAB.ER.24 PO SCH (09:54)
[2022-11-19] MEDS: LOSARTAN 50 MG TAB PO SCH (09:54)
[2022-11-19 12:10] LABS: Basophils # (A) 0.04 X 10*3/uL (0.00-0.10); Basophils % (A) 0.7 %; Eosinophils # (A) 0.09 X 10*3/uL (0.04-0.35); Eosinophils % (A) 1.6 %; HCT 33.9 % (37.2-46.3); Lymphocytes % (A) 20.1 %; MCHC 32.4 d/dL (32.0-37.0); MCV 86.3 FL (80.0-97.0); Mean Platelet Volume 10.5 FL (9.5-12.2); Monocytes % (A) 7.3 %; NRBC Per 100 WBC 0 X 10*3/uL (0.00-0.01); Neutrophils # (A) 3.82 X 10*3/uL (1.80-7.70); Neutrophils % (A) 70.1 %; Platelet Count 203 X 10*3/uL (140-440); RBC 3.93 X 10*6/uL (4.10-5.20); RDW 12.6 % (11.5-14.5); WBC 5.46 X 10*3/uL (4.50-10.00)
[2022-11-19 13:57] VITALS: BP 170/83; PULSE 55; RESP 18; TEMP 99.2
--- NOTE | 2022-11-20 12:21 | P.DS ---
Providers Date of admission: 11/15/22 13:30 Expected date of discharge: 11/19/22 Attending physician: Chacorta Romero Primary care physician: Chacorta Romero Hospital Course: Nausea, vomiting with increased generalized weakness, possible acute viral gastritis-though viral studies negative. Suspect acute UTI, culture in progress. Lactic acidosis, resolved with IV fluid hydration History of right-sided Covid pneumonia, 06/11 History of sick sinus syndrome with pacemaker Hospital course:This is a 77-year-old female presented to the ER with complaints of nausea, emesis , generalized weakness and fevers, in a patient with history of recent covid pneumonia 06/11, sick sinus syndrome, pacemaker, vertigo, cholecystectomy and multiple other medical issues. Denies cough, congestion. T-max 101, lactic acid on admission 2.3, resolved currently down to 0.9 with IV fluid hydration. Maintaining O2 sats of 97% on 2 L nasal cannula. Tested negative for coronavirus. Electrolytes, renal function stable. Troponin negative. Denies chest pain, palpitations or shortness of breath. UA reported moderate bacteria, large leukocytes, 10 WBCs, negative nitrates. Denies urinary frequency, dysuria or hematuria. Hemoglobin 13.3, platelets 161. Blood cultures in progress. Zithromax and ceftriaxone initiated. Currently complains of dry heaves. Initial chest x-ray reported right lower lung airspace opacity in the right lung. Repeat chest x-ray reported improved aeration of the right lower lung airspace opacity possibly related to patient's inspirational effort. 11/17/2022 Maintained on IV antibiotics of ceftriaxone and azithromycin. protocol calcitonin elevated ,6.96, influenza A and B, negative. Urine culture pending. Afebrile, T-max 99.5. Occasional nonproductive cough. Ongoing nausea with emesis of foamy spit. Reports salty taste in mouth. 11/18/2022 continues on IV antibiotics, maintaining O2 sats in the 90s on room air. Afebrile, normal WBC. Urine culture pending.Hemoglobin 10.6, platelets 162. Renal function stable. Consumed 50% of breakfast /lunch. Amylase 34, lipase 14. Nausea, abdominal discomfort significantly improved. Reports infrequent nonproductive cough. Denies chest pain, palpitations or increased shortness of breath. Significant clinical improvement. Tolerating diet with no nausea vomiting or diarrhea. Denies abdominal pain. Denies chest pain, palpitations or shortness of breath. Afebrile, normal WBC. Maintaining O2 sats in the 90s on room air. Reports ambulating, tolerating exertion well. Denies lightheadedness, dizziness or focal deficits. Completed antibiotic therapy/final urine culture pending with results to be faxed to PCPs office. The impression and plan of care has been dictated as directed. : I performed a history and examination of this patient, discussed the same with the dictator. I agree with the dictator's note ,documented as a scribe. Any additional findings or plans will be noted. Patient Condition at Discharge: Stable Plan - Discharge Summary Discharge Rx Participant: No New Discharge Prescriptions: Continue Tolterodine Tartrate [Detrol LA] 4 mg PO DAILY Esomeprazole Magnesium [NexIUM] 40 mg PO DAILY atenoloL [Tenormin] 50 mg PO DAILY #90 tab Cholecalciferol [Vitamin D3 (25 Mcg = 1000 Iu)] 25 mcg PO DAILY tab Rosuvastatin [Crestor] 20 mg PO DAILY Multivit-Min/Iron/Folic/Lutein [Centrum Silver Women Tablet] 1 tab PO DAILY Apixaban [Eliquis] 5 mg PO BID Losartan Potassium 100 mg PO DAILY Discharge Medication List Tolterodine Tartrate [Detrol LA] 4 mg PO DAILY 01/13/16 [History] Esomeprazole Magnesium [NexIUM] 40 mg PO DAILY 06/01/18 [History] atenoloL [Tenormin] 50 mg PO DAILY #90 tab 05/09/19 [Rx] Apixaban [Eliquis] 5 mg PO BID 05/25/22 [History] Losartan Potassium 100 mg PO DAILY 06/16/22 [History] Cholecalciferol [Vitamin D3 (25 Mcg = 1000 Iu)] 25 mcg PO DAILY tab 06/17/22 [Rx] Multivit-Min/Iron/Folic/Lutein [Centrum Silver Women Tablet] 1 tab PO DAILY 11/15/22 [History] Rosuvastatin [Crestor] 20 mg PO DAILY 11/15/22 [History] Follow up Appointment(s)/Referral(s): [facility] [place], [NON-STAFF] - As Needed Chacorta Romero MD [Primary Care Provider] - 11/25/22 2:15 pm Patient Instructions/Handouts: Pneumonia (DC) Activity/Diet/Wound Care/Special Instructions: Final urine culture results to PCP Discharge Disposition: HOME WITH HOME HEALTH SERVICES
== END 2022-11-19 14:21 | disposition home health service (06) | DRG 392 ==
LOC: EC 08:21 → 4SSUR 13:30
PROVIDERS: ADMIT Family Medicine; ATTEND Family Medicine
DX: A08.4 Viral intestinal infection, unspecified (principal); E87.20 Acidosis, unspecified; N39.0 Urinary tract infection, site not specified; E78.5 Hyperlipidemia, unspecified; I10 Essential (primary) hypertension; Z86.16 Personal history of COVID-19; Z28.311 Partially vaccinated for COVID-19; Z20.822 Contact with and (suspected) exposure to COVID-19; Z87.01 Personal history of pneumonia (recurrent); R09.02 Hypoxemia; Z79.01 Long term (current) use of anticoagulants; Z79.899 Other long term (current) drug therapy; I49.5 Sick sinus syndrome; Z95.0 Presence of cardiac pacemaker; Z88.0 Allergy status to penicillin
CPT/HCPCS: 36415; 71046; 80048; 80053; 81001; 82150; 83605; 83690; 84145; 84484; 85025; 85027; 87040; 87086; 87449; 87502; 87635; 93005; 94640; 94760; 96374; 99285

== ENCOUNTER → 2023-04-28 | Outpatient (CLI) | payer MEDICARE, BC ==
--- NOTE | 2023-04-28 20:23 | BD ---
EXAMINATION TYPE: Axial Bone Density DATE OF EXAM: 04/28/2023 CLINICAL HISTORY: 77 years old Female. ICD-10 CODE: M85.88 OTH DISRD OF BONE DENSITY AND STRUCTURE, OT Height: 62 Weight: 140 FRAX RISK QUESTIONS: History of Fracture in Adulthood: no Secondary Osteoporosis: no RISK FACTORS HISTORY OF: Active: yes Diet low in dairy products/other sources of calcium: no Postmenopausal woman: yes Lost more than 2 inches in height since high school: no MEDICATIONS: Additional Medications: yes cholesterol, hbp meds EXAM MEASUREMENTS: Bone mineral densitometry was performed using the [employer]. Bone mineral density as measured about the Lumbar spine is: ----- L1-L4(G/cm2): 0.962 T Score Values are as follows: ----- L1: -2.3 ----- L2: -3.0 ----- L3: -1.3 ----- L4: -1.0 ----- L1-L4: -1.8 Z Score Values are as follows: ----- L1: -0.4 ----- L2: -1.2 ----- L3: 0.5 ----- L4: 0.8 ----- L1-L4: 0.0 Bone mineral density has: Increased 0.5% since study of: 04/16/2021 Bone mineral density about the R hip (g/cm2): 0.809 Bone mineral density about the L hip (g/cm2): 0.845 T Score values are as follows: -----R Neck: -2.2 -----L Neck: -1.6 -----R Total: -1.6 -----L Total: -1.3 Z Score values are as follows: -----R Neck: -0.1 -----L Neck: 0.5 -----R Total: 0.3 -----L Total: 0.6 Bone mineral density has: Decreased -3.3% since study of: 04/16/2021 FRAX%s: The graph provided illustrates a 16.1% chance for a major osteoporotic fx and a 4.8% chance f or the hips probability for fx in 10 years time. IMPRESSION: Osteopenia (T Score between -2.5 and -1). There is slightly increased risk of fracture and the patient may be considered for treatment. Re-Screen 2-5 years. NOTE: T-SCORE=SD OF THE YOUNG ADULT MEAN.
== END | disposition home or self-care (01) ==
LOC: RADBDWWP 08:36
PROVIDERS: ATTEND Obstetrics & Gynecology
DX: M85.89 Other specified disorders of bone density and structure, multiple sites (principal); Z78.0 Asymptomatic menopausal state
CPT/HCPCS: 77080

== ENCOUNTER 2023-05-01 14:52 | Observation (INO) | payer MEDICARE, BC ==
[2023-05-01] MEDS ORDERED: SODIUM CHLORIDE 0.9% 1,000 ML IV STA (15:05)
--- NOTE | 2023-05-01 15:09 | ED ---
General Adult HPI - General Chief complaint: Dizziness Stated complaint: Dizziness Time Seen by Provider: 05/01/23 14:56 Source: patient, EMS, RN notes reviewed Mode of arrival: EMS Limitations: no limitations - History of Present Illness Initial comments: Patient is a pleasant 77-year-old female presenting to the emergency department with dizziness. Patient was at a wake. Patient was sitting down and suddenly felt dizzy like spinning. Patient states she rest her head down and stated "help me ". Patient did not feel well for about 5 minutes and then has returned to normal. Patient feels essentially normal at this time. Patient along her feels dizzy. No nausea vomiting. Patient does not believe she passed out. No weakness or confusion. No headache. No chest pain or dyspnea. - Related Data Home Medications Medication Instructions Recorded Confirmed Tolterodine Tartrate [Detrol LA] 4 mg PO DAILY 01/13/16 11/15/22 Esomeprazole Magnesium [NexIUM] 40 mg PO DAILY 06/01/18 11/15/22 Apixaban [Eliquis] 5 mg PO BID 05/25/22 11/15/22 Losartan Potassium 100 mg PO DAILY 06/16/22 11/15/22 Multivit-Min/Iron/Folic/Lutein 1 tab PO DAILY 11/15/22 11/15/22 [Centrum Silver Women Tablet] Rosuvastatin [Crestor] 20 mg PO DAILY 11/15/22 11/15/22 Previous Rx's Medication Instructions Recorded atenoloL [Tenormin] 50 mg PO DAILY #90 tab 05/09/19 Cholecalciferol [Vitamin D3 (25 25 mcg PO DAILY tab 06/17/22 Mcg = 1000 Iu)] Allergies Allergy/AdvReac Type Severity Reaction Status Date / Time latex Allergy Rash/Hives Verified 05/01/23 15:02 Penicillins Allergy Rash/Hives Verified 05/01/23 15:01 Review of Systems ROS Statement: Those systems with pertinent positive or pertinent negative responses have been documented in the HPI. ROS Other: All systems not noted in ROS Statement are negative. Constitutional: Denies: fever Eyes: Denies: eye pain ENT: Denies: ear pain Respiratory: Denies: cough Cardiovascular: Denies: chest pain Endocrine: Denies: fatigue Gastrointestinal: Denies: abdominal pain Genitourinary: Denies: dysuria Neurological: Reports: vertigo. Denies: headache, weakness, paresthesias, confusion Past Medical History Past Medical History: GERD/Reflux, Hyperlipidemia, Hypertension, Syncope Additional Past Medical History / Comment(s): See Dr Adalberto Mariano&P, cystocele with coil, hx migraines, hx ulcer, urinary leakage, Syncope feb- pt sent home with a holter monitor was found to be dolly- dual pacer placed 05/08/2019 History of Any Multi-Drug Resistant Organisms: None Reported Past Surgical History: Bladder Surgery, Cholecystectomy, Hernia Repair, Orthopedic Surgery, Pacemaker, Tonsillectomy, Tubal Ligation Additional Past Surgical History / Comment(s): R eye surgery FOR RETINAL TEAR , Rt carpal tunnel release, BLADDER COIL, cataract removed left eye Past Anesthesia/Blood Transfusion Reactions: Motion Sickness, Postoperative Nausea & Vomiting (PONV) Additional Past Anesthesia/Blood Transfusion Reaction / Comment(s): . Type of Cardiac Device: Permanent Pacemaker Device Placement Date:: 05/08/2019 Past Psychological History: No Psychological Hx Reported Smoking Status: Never smoker Past Alcohol Use History: None Reported Past Drug Use History: None Reported - Past Family History Brother(s) Family Medical History: Cancer Mother Family Medical History: Cancer Additional Family Medical History / Comment(s): MOTHER RECENTLY AT AGE 86YRS from CAD. HER CANCERS WERE OF THE BREAST AND THE BOWEL. General Exam Limitations: no limitations General appearance: alert, in no apparent distress Head exam: Present: atraumatic, normocephalic Eye exam: Present: normal appearance, PERRL, EOMI. Absent: nystagmus ENT exam: Present: normal oropharynx Respiratory exam: Present: normal lung sounds bilaterally Cardiovascular Exam: Present: regular rate, normal rhythm GI/Abdominal exam: Present: soft. Absent: tenderness Extremities exam: Present: normal inspection Neurological exam: Present: alert, oriented X3, CN II-XII intact. Absent: motor sensory deficit Expanded Neurological exam: Present: protecting the airway Speech: Present: fluid speech Cranial nerves: EOM's Intact: Normal, Facial Sensation: Normal Sensory exam: Upper Extremity Light Touch: Normal, Lower Extremity Light Touch: Normal Motor strength exam: RUE: 5, LUE: 5, RLE: 5, LLE: 5 Eye Response: (4) open spontaneously Motor Response: (6) obeys commands Verbal Response: (5) oriented Psychiatric exam: Present: normal affect, normal mood Skin exam: Present: normal color Course Vital Signs 05/01/23 05/01/23 14:58 16:20 Temperature 97.5 F L Pulse Rate 56 L 57 L Respiratory 20 18 Rate Blood Pressure 117/75 125/74 O2 Sat by Pulse 97 95 Oximetry EKG Findings - EKG Results: EKG: interpreted by ERMD (Paced rhythm. Left axis. Poor R-wave progression. Nonspecific T waves.) EKG shows: bradycardia Medical Decision Making - Medical Decision Making Was pt. sent in by a medical professional or institution (, PA, STAMPS OR COINS SALESPERSON, urgent care, hospital, or longterm...) When possible be specific @ -No Did you speak to anyone other than the patient for history (EMS, parent, family, police, friend...)? What history was obtained from this source @ -Daughter arrives later and states patient did actually have a syncopal episode and was unresponsive for a couple of minutes. Did you review nursing and triage notes (agree or disagree)? Why? @ -I reviewed and agree with nursing and triage notes Were old charts reviewed (outside hosp., previous admission, EMS record, old EKG, old radiological studies, urgent care reports/EKG's, longterm records)? Report findings @ -Previous chest x-ray was reviewed Differential Diagnosis (chest pain, altered mental status, abdominal pain women, abdominal pain men, vaginal bleeding, weakness, fever, dyspnea, syncope, headache, dizziness, GI bleed, back pain, seizure, CVA, palpatations, mental health, musculoskeletal)? @ -Differential Syncope: Valvular disease, hypertrophic cardiomyopathy, pulmonary embolism, tamponade, tachycardia, bradycardia, HI, hypovolemia, hemorrhage, dissection, anemia, intracranial hemorrhage, seizure, hypoglycemia, carbon monoxide poisoning, this is not meant to be an all-inclusive list. EKG interpreted by me (3pts min.). @ -As above X-rays interpreted by me (1pt min.). @ -Chest x-ray shows no acute process CT interpreted by me (1pt min.). @ -CT brain shows no obvious hemorrhage or mass U/S interpreted by me (1pt. min.). @ -None done What testing was considered but not performed or refused? (CT, X-rays, U/S, labs)? Why? @ -None What meds were considered but not given or refused? Why? @ -None Did you discuss the management of the patient with other professionals (professionals i.e. , PA, STAMPS [employer] COINS SALESPERSON, lab, RT, psych nurse, social media strategist, technology engineer, teacher, systems support officer, home health care case manager)? Give summary @ -Case was discussed with Dr. Romero who will admit his patient with cardiac consult Was smoking cessation discussed for >3mins.? @ -No Was critical care preformed (if so, how long)? @ -No Were there social determinants of health that impacted care today? How? (Homelessness, low income, unemployed, alcoholism, drug addiction, transportation, low edu. Level, literacy, decrease access to med. care, intermediate, rehab)? @ -No Was there de-escalation of care discussed even if they declined (Discuss DNR or withdrawal of care, Hospice)? DNR status @ -No What co-morbidities impacted this encounter? (DM, HTN, Smoking, COPD, CAD, Cancer, CVA, ARF, Chemo, Hep., AIDS, mental health diagnosis, sleep apnea, morbid obesity)? @ -None Was patient admitted / discharged? Hospital course, mention meds given and route, prescriptions, significant lab abnormalities, going to OR and other pertinent info. @ -Patient reevaluated. Patient and family are updated. Family does not feel comfortable with discharge of patient. Patient will be admitted with cardiac consult. Admission orders written. Undiagnosed new problem with uncertain prognosis? @ -No Drug Therapy requiring intensive monitoring for toxicity (Heparin, Nitro, Insulin, Cardizem)? @ -No Were any procedures done? @ -No Diagnosis/symptom? @ -Syncope Acute, or Chronic, or Acute on Chronic? @ -Acute Uncomplicated (without systemic symptoms) or Complicated (systemic symptoms)? @ -default Side effects of treatment? @ -No Exacerbation, Progression, or Severe Exacerbation? @ -No Poses a threat to life or bodily function? How? (Chest pain, USA, HI, pneumonia, PE, COPD, DKA, ARF, appy, cholecystitis, CVA, Diverticulitis, Homicidal, Suicidal, threat to staff... and all critical care pts) @ -No - Lab Data Result diagrams: 05/01/23 15:08 05/01/23 15:08 Lab Results 0105/01/23 05/01/23 Range/Units 15:08 15:08 15:08 WBC 8.0 (3.8-10.6) k/uL RBC 4.30 (3.80-5.40) m/uL Hgb 13.1 (11.4-16.0) gm/dL Hct 38.0 (34.0-46.0) % MCV 88.3 (80.0-100.0) fL MCH 30.5 (25.0-35.0) pg MCHC 34.5 (31.0-37.0) g/dL RDW 13.1 (11.5-15.5) % Plt Count 219 (150-450) k/uL MPV 7.8 Neutrophils % 79 % Lymphocytes % 14 % Monocytes % 4 % Eosinophils % 1 % Basophils % 1 % Neutrophils # 6.3 (1.3-7.7) k/uL Lymphocytes # 1.1 (1.0-4.8) k/uL Monocytes # 0.4 (0-1.0) k/uL Eosinophils # 0.1 (0-0.7) k/uL Basophils # 0.1 (0-0.2) k/uL PT 11.2 (10.0-12.5) sec INR 1.0 (<1.2) APTT 21.8 L (22.0-30.0) sec Sodium 139 (137-145) mmol/L Potassium 4.2 (3.5-5.1) mmol/L Chloride 104 (98-107) mmol/L Carbon Dioxide 28 (22-30) mmol/L Anion Gap 7 mmol/L BUN 21 H (7-17) mg/dL Creatinine 0.88 (0.52-1.04) mg/dL Est GFR (CKD-EPI)AfAm 74 (>60 ml/min/1.73 sqM) Est GFR (CKD-EPI)NonAf 64 (>60 ml/min/1.73 sqM) Glucose 117 H (74-99) mg/dL Calcium 9.0 (8.4-10.2) mg/dL Magnesium 2.1 (1.6-2.3) mg/dL Total Bilirubin 0.7 (0.2-1.3) mg/dL AST 23 (14-36) U/L ALT 22 (4-34) U/L Alkaline Phosphatase 81 (38-126) U/L Troponin I (0.000-0.034) ng/mL Total Protein 6.0 L (6.3-8.2) g/dL Albumin 3.8 (3.5-5.0) g/dL 05/01/23 Range/Units 15:08 WBC (3.8-10.6) k/uL RBC (3.80-5.40) m/uL Hgb (11.4-16.0) gm/dL Hct (34.0-46.0) % MCV (80.0-100.0) fL MCH (25.0-35.0) pg MCHC (31.0-37.0) g/dL RDW (11.5-15.5) % Plt Count (150-450) k/uL MPV Neutrophils % % Lymphocytes % % Monocytes % % Eosinophils % % Basophils % % Neutrophils # (1.3-7.7) k/uL Lymphocytes # (1.0-4.8) k/uL Monocytes # (0-1.0) k/uL Eosinophils # (0-0.7) k/uL Basophils # (0-0.2) k/uL PT (10.0-12.5) sec INR (<1.2) APTT (22.0-30.0) sec Sodium (137-145) mmol/L Potassium (3.5-5.1) mmol/L Chloride (98-107) mmol/L Carbon Dioxide (22-30) mmol/L Anion Gap mmol/L BUN (7-17) mg/dL Creatinine (0.52-1.04) mg/dL Est GFR (CKD-EPI)AfAm (>60 ml/min/1.73 sqM) Est GFR (CKD-EPI)NonAf (>60 ml/min/1.73 sqM) Glucose (74-99) mg/dL Calcium (8.4-10.2) mg/dL Magnesium (1.6-2.3) mg/dL Total Bilirubin (0.2-1.3) mg/dL AST (14-36) U/L ALT (4-34) U/L Alkaline Phosphatase (38-126) U/L Troponin I <0.012 (0.000-0.034) ng/mL Total Protein (6.3-8.2) g/dL Albumin (3.5-5.0) g/dL Disposition Clinical Impression: Syncope Disposition: ADMITTED IP TO THIS HOSP Is patient prescribed a controlled substance at d/c from ED?: No Referrals: Chacorta Romero MD [Primary Care Provider] - 1-2 days Time of Disposition: 17:48
[2023-05-01 15:29] LABS: Basophils # (A) 0.1 k/uL (0-0.2); Basophils % (A) 1 %; Eosinophils # (A) 0.1 k/uL (0-0.7); Eosinophils % (A) 1 %; HGB 13.1 gm/dL (11.4-16.0); Lymphocytes # (A) 1.1 k/uL (1.0-4.8); Lymphocytes % (A) 14 %; MCH 30.5 pg (25.0-35.0); MCHC 34.5 g/dL (31.0-37.0); MCV 88.3 fL (80.0-100.0); Mean Platelet Volume 7.8; Monocytes # (A) 0.4 k/uL (0-1.0); Monocytes % (A) 4 %; Neutrophils # (A) 6.3 k/uL (1.3-7.7); Neutrophils % (A) 79 %; Platelet Count 219 k/uL (150-450); RDW 13.1 % (11.5-15.5)
[2023-05-01 15:47] LABS: Prothrombin Time 11.2 sec (10.0-12.5)
[2023-05-01 15:57] LABS: ALT 22 U/L (4-34); AST 23 U/L (14-36); African American GFR (CKD) 74 (>60 ml/min/1.73 sqM); Albumin 3.8 g/dL (3.5-5.0); Alkaline Phosphatase 81 U/L (38-126); Anion Gap 7 mmol/L; Blood Urea Nitrogen 21 mg/dL (7-17); Carbon Dioxide 28 mmol/L (22-30); Chloride 104 mmol/L (98-107); Glucose 117 mg/dL (74-99); Magnesium 2.1 mg/dL (1.6-2.3); Non-African American GFR(CKD) 64 (>60 ml/min/1.73 sqM); Potassium 4.2 mmol/L (3.5-5.1); Sodium 139 mmol/L (137-145); Total Bilirubin 0.7 mg/dL (0.2-1.3)
[2023-05-01 16:05] LABS: Partial Thromboplastin Time 21.8 sec (22.0-30.0)
--- NOTE | 2023-05-01 17:03 | CT ---
EXAMINATION TYPE: CT brain wo con CT DLP: 1097.3 mGycm, Automated exposure control for dose reduction was used. DATE OF EXAM: 05/01/2023 3:43 PM COMPARISON: None. CLINICAL INDICATION:Female, 77 years old with history of syncope, c/o dizziness TECHNIQUE: Brain: Axial CT images of the brain were obtained with coronal and sagittal reformats created and rev iewed. Contrast used: None. Oral contrast used: None. FINDINGS: Extra-axial spaces: No abnormal extra-axial fluid collections. Ventricular system: Ventricles appear dilated in proportion to the degree of cerebral atrophy. Cerebral parenchyma: No increased attenuation to suggest acute intraparenchymal hemorrhage. The gra y-white matter interface appears maintained. Mild generalized brain atrophy. Scattered hypoattenuat ing areas are seen within the cerebral white matter, nonspecific but most often seen with chronic tata rovascular ischemic changes; mild in degree. Cerebellum: No acute abnormality. Mass effect: No evidence of mass effect or midline shift. Intracranial vasculature: Atherosclerotic calcifications of the larger arteries near the skull base. Soft tissues: No acute abnormality Visualized orbits: Orbital contents appear grossly intact. Prior lens surgery has likely been perfo rmed on the left. Likely scleral banding surgery on the right. Calvarium/osseous structures: No evidence of calvarial fracture. Paranasal sinuses and mastoid air cells: Mild scattered mucosal thickening of the ethmoids. No defini te fluid accumulations. Nasal septal deviation towards the left. Mastoid air cells are clear. MRI is more sensitive for detecting acute processes such as infarct, and may be considered if clinica lly warranted. IMPRESSION: 1. No acute intracranial CT abnormality. 2. Mild atrophy and chronic microvascular ischemic changes.
[2023-05-01] MEDS ORDERED: ALPRAZolam 0.25 MG TAB PO PRN (17:49)
[2023-05-01] MEDS ORDERED: NALOXONE 0.4 MG/ML 1 ML VIAL IV PRN (17:49)
[2023-05-01] MEDS ORDERED: ACETAMINOPHEN TAB 325 MG TAB PO PRN (17:49)
[2023-05-01] MEDS ORDERED: SODIUM CHLORIDE 0.9% 1,000 ML IV SCH (18:00)
--- NOTE | 2023-05-01 18:01 | XR ---
EXAMINATION TYPE: XR chest 2V DATE OF EXAM: 05/01/2023 COMPARISON: 11/16/2022 INDICATION: Syncope, dizziness TECHNIQUE: Frontal and lateral views of the chest are obtained. FINDINGS: The heart size is normal. This may overlies left chest. The pulmonary vasculature is normal. The lungs are clear. IMPRESSION: 1. No acute pulmonary process.
--- NOTE | 2023-05-02 10:59 | P.CRDCN ---
History of Present Illness Consult date: 05/02/23 Chief complaint: Dizziness and lightheadedness/syncope History of present illness: The patient is a 77-year-old male patient who sees Dr. Glover regular basis the past medical history significant for hypertension and dyslipidemia and permanent pacemaker and history of dizziness and lightheadedness presented to the emergency department complaining of dizziness and lightheadedness again. She was in her usual state of health where she was attending the of her nephew yesterday when suddenly she started feeling dizzy and lightheaded. She was sitting when that happened. She stated that she lost her consciousness according to people surrounding her. No heart racing or fluttering and no chest pain or chest discomfort. She underwent further workup including EKG showing sinus mechanism with T-wave inversion in the anterolateral leads appeared to be the same as before. Troponin came in to be unremarkable chest x-ray came in to be unremarkable. Also computed tomography scan of the brain came in to be unremarkable. Her vitals have been stable except her heart rate has been in the 50s. Examination is remarkable for stable vital signs was low heart rate with a clear breathing sounds bilaterally and regular rate and rhythm and no lower extremity edema noted and no carotid bruits. Assessment Dizziness and lightheadedness and possibly syncope. Differential diagnosis includes vasovagal versus orthostatic hypotension Permanent pacemaker Hypertension and dyslipidemia Plan Rule out orthostatic hypotension Interrogated the pacemaker Obtain an echocardiogram was Doppler Follow-up with the patient Past Medical History Past Medical History: GERD/Reflux, Hyperlipidemia, Hypertension, Syncope Additional Past Medical History / Comment(s): See Dr Glover H&P, cystocele with coil, hx migraines, hx ulcer, urinary leakage, Syncope feb- pt sent home with a holter monitor was found to be dolly- dual pacer placed 05/08/2019 History of Any Multi-Drug Resistant Organisms: None Reported Past Surgical History: Bladder Surgery, Cholecystectomy, Hernia Repair, Orthopedic Surgery, Pacemaker, Tonsillectomy, Tubal Ligation Additional Past Surgical History / Comment(s): R eye surgery FOR RETINAL TEAR , Rt carpal tunnel release, BLADDER COIL, cataract removed left eye Past Anesthesia/Blood Transfusion Reactions: Motion Sickness, Postoperative Nausea & Vomiting (PONV) Additional Past Anesthesia/Blood Transfusion Reaction / Comment(s): . Type of Cardiac Device: Permanent Pacemaker Device Placement Date:: 05/08/2019 Past Psychological History: No Psychological Hx Reported Smoking Status: Never smoker Past Alcohol Use History: None Reported Past Drug Use History: None Reported - Past Family History Brother(s) Family Medical History: Cancer Mother Family Medical History: Cancer Additional Family Medical History / Comment(s): MOTHER RECENTLY AT AGE 86YRS from CAD. HER CANCERS WERE OF THE BREAST AND THE BOWEL. Medications and Allergies Home Medications Medication Instructions Recorded Confirmed Type Tolterodine Tartrate [Detrol LA] 4 mg PO DAILY 01/13/16 05/01/23 History Esomeprazole Magnesium [NexIUM] 40 mg PO DAILY 06/01/18 05/01/23 History atenoloL [Tenormin] 50 mg PO DAILY #90 tab 05/09/19 05/01/23 Rx Apixaban [Eliquis] 5 mg PO BID 05/25/22 05/01/23 History Losartan Potassium 100 mg PO DAILY 06/16/22 05/01/23 History Rosuvastatin [Crestor] 20 mg PO DAILY 11/15/22 05/01/23 History Flecainide [Tambocor] 50 mg PO Q12HR 05/01/23 05/01/23 History atenoloL [Tenormin] 25 mg PO HS 05/01/23 05/01/23 History Allergies Allergy/AdvReac Type Severity Reaction Status Date / Time latex Allergy Rash/Hives Verified 05/01/23 19:23 Penicillins Allergy Rash/Hives Verified 05/01/23 19:23 Physical Exam Vitals: Vital Signs Temp Pulse Resp BP Pulse Ox 05/02/23 06:00 52 L 15 132/75 97 05/02/23 04:00 50 L 15 126/92 98 05/02/23 01:00 51 L 10 L 120/69 94 L 05/02/23 00:00 49 L 26 H 138/80 95 05/01/23 23:00 58 L 11 L 138/80 97 05/01/23 22:00 52 L 16 138/80 95 05/01/23 21:30 50 L 16 122/82 95 05/01/23 21:00 51 L 16 120/105 94 L 05/01/23 20:00 53 L 17 153/90 94 L 05/01/23 19:35 97.7 F 05/01/23 18:46 96 05/01/23 18:05 98.1 F 53 L 16 109/97 93 L 05/01/23 16:20 57 L 18 125/74 95 05/01/23 14:58 97.5 F L 56 L 20 117/75 97 Results 05/01/23 15:08 05/01/23 15:08 Cardiac Enzymes 05/01/23 05/01/23 05/01/23 Range/Units 15:08 15:08 18:06 AST 23 (14-36) U/L Troponin I <0.012 <0.012 (0.000-0.034) ng/mL 05/01/23 Range/Units 21:11 AST (14-36) U/L Troponin I <0.012 (0.000-0.034) ng/mL Coagulation 05/01/23 Range/Units 15:08 PT 11.2 (10.0-12.5) sec APTT 21.8 L (22.0-30.0) sec CBC 05/01/23 Range/Units 15:08 WBC 8.0 (3.8-10.6) k/uL RBC 4.30 (3.80-5.40) m/uL Hgb 13.1 (11.4-16.0) gm/dL Hct 38.0 (34.0-46.0) % Plt Count 219 (150-450) k/uL Comprehensive Metabolic Panel 05/01/23 Range/Units 15:08 Sodium 139 (137-145) mmol/L Potassium 4.2 (3.5-5.1) mmol/L Chloride 104 (98-107) mmol/L Carbon Dioxide 28 (22-30) mmol/L BUN 21 H (7-17) mg/dL Creatinine 0.88 (0.52-1.04) mg/dL Glucose 117 H (74-99) mg/dL Calcium 9.0 (8.4-10.2) mg/dL AST 23 (14-36) U/L ALT 22 (4-34) U/L Alkaline Phosphatase 81 (38-126) U/L Total Protein 6.0 L (6.3-8.2) g/dL Albumin 3.8 (3.5-5.0) g/dL Current Medications Generic Name Dose Route Start Last Admin Trade Name Freq PRN Reason Stop Dose Admin Acetaminophen 650 mg 05/01/23 17:49 Acetaminophen Tab 325 Mg Tab PO Q6HR PRN Mild Pain or Fever > 100.5 Alprazolam 0.25 mg 05/01/23 17:49 Alprazolam 0.25 Mg Tab PO Q6HR PRN Anxiety Naloxone HCl 0.2 mg 05/01/23 17:49 Naloxone 0.4 Mg/Ml 1 Ml Vial IV Q2M PRN Opioid Reversal 05/01/23 15:08 05/01/23 15:08
[2023-05-02 11:27] LABS: Basophils % (A) 0 %; Eosinophils # (A) 0.1 k/uL (0-0.7); Eosinophils % (A) 1 %; HCT 40.4 % (34.0-46.0); HGB 13.6 gm/dL (11.4-16.0); Lymphocytes # (A) 1.6 k/uL (1.0-4.8); Lymphocytes % (A) 24 %; MCH 29.6 pg (25.0-35.0); MCHC 33.6 g/dL (31.0-37.0); Mean Platelet Volume 7.7; Monocytes # (A) 0.3 k/uL (0-1.0); Monocytes % (A) 5 %; Neutrophils # (A) 4.5 k/uL (1.3-7.7); Neutrophils % (A) 68 %; Platelet Count 196 k/uL (150-450); RBC 4.59 m/uL (3.80-5.40); RDW 13.1 % (11.5-15.5); WBC 6.6 k/uL (3.8-10.6)
[2023-05-02 12:00] LABS: ALT 23 U/L (4-34); AST 24 U/L (14-36); African American GFR (CKD) >90 (>60 ml/min/1.73 sqM); Albumin 3.6 g/dL (3.5-5.0); Albumin/Globulin Ratio 1.6; Alkaline Phosphatase 78 U/L (38-126); Anion Gap 10 mmol/L; Blood Urea Nitrogen 12 mg/dL (7-17); Calcium 9.1 mg/dL (8.4-10.2); Carbon Dioxide 25 mmol/L (22-30); Chloride 107 mmol/L (98-107); Globulin 2.3 g/dL; Glucose 107 mg/dL (74-99); Non-African American GFR(CKD) 87 (>60 ml/min/1.73 sqM); Potassium 4.2 mmol/L (3.5-5.1); Sodium 142 mmol/L (137-145); Total Bilirubin 0.5 mg/dL (0.2-1.3); Total Protein 5.9 g/dL (6.3-8.2)
--- NOTE | 2023-05-02 12:14 | P.HPIM ---
History of Present Illness H&P Date: 05/02/23 Chief Complaint: Syncope This is a 77-year-old female well-known to me. She has extensive medical history of hypertension hyperlipidemia previous syncope, sick sinus syndrome, history of pacer, and OAB. She reports being at a yesterday. She became very tired. Her family says she lost consciousness for a few moments and was brought to the emergency room. She reports being under normal state health before this. Her workup showed some mild dehydration. But otherwise was normal. She spent the night in the emergency room. She feels back to her baseline at this time. She denies any chest pain pressure shortness of breath nausea or vomiting. Review of Systems All systems: negative Past Medical History Past Medical History: GERD/Reflux, Hyperlipidemia, Hypertension, Syncope Additional Past Medical History / Comment(s): See Dr Glover H&P, cystocele with coil, hx migraines, hx ulcer, urinary leakage, Syncope feb- pt sent home with a holter monitor was found to be dolly- dual pacer placed 05/08/2019 History of Any Multi-Drug Resistant Organisms: None Reported Past Surgical History: Bladder Surgery, Cholecystectomy, Hernia Repair, Orthopedic Surgery, Pacemaker, Tonsillectomy, Tubal Ligation Additional Past Surgical History / Comment(s): R eye surgery FOR RETINAL TEAR , Rt carpal tunnel release, BLADDER COIL, cataract removed left eye Past Anesthesia/Blood Transfusion Reactions: Motion Sickness, Postoperative Nausea & Vomiting (PONV) Additional Past Anesthesia/Blood Transfusion Reaction / Comment(s): . Type of Cardiac Device: Permanent Pacemaker Device Placement Date:: 05/08/2019 Past Psychological History: No Psychological Hx Reported Smoking Status: Never smoker Past Alcohol Use History: None Reported Past Drug Use History: None Reported - Past Family History Brother(s) Family Medical History: Cancer Mother Family Medical History: Cancer Additional Family Medical History / Comment(s): MOTHER RECENTLY AT AGE 86YRS from CAD. HER CANCERS WERE OF THE BREAST AND THE BOWEL. Medications and Allergies Home Medications Medication Instructions Recorded Confirmed Type Tolterodine Tartrate [Detrol LA] 4 mg PO DAILY 01/13/16 05/01/23 History Esomeprazole Magnesium [NexIUM] 40 mg PO DAILY 06/01/18 05/01/23 History atenoloL [Tenormin] 50 mg PO DAILY #90 tab 05/09/19 05/01/23 Rx Apixaban [Eliquis] 5 mg PO BID 05/25/22 05/01/23 History Losartan Potassium 100 mg PO DAILY 06/16/22 05/01/23 History Rosuvastatin [Crestor] 20 mg PO DAILY 11/15/22 05/01/23 History Flecainide [Tambocor] 50 mg PO Q12HR 05/01/23 05/01/23 History atenoloL [Tenormin] 25 mg PO HS 05/01/23 05/01/23 History Allergies Allergy/AdvReac Type Severity Reaction Status Date / Time latex Allergy Rash/Hives Verified 05/01/23 19:23 Penicillins Allergy Rash/Hives Verified 05/01/23 19:23 Physical Exam Vitals: Vital Signs Temp Pulse Resp BP Pulse Ox 05/02/23 06:00 52 L 15 132/75 97 05/02/23 04:00 50 L 15 126/92 98 05/02/23 01:00 51 L 10 L 120/69 94 L 05/02/23 00:00 49 L 26 H 138/80 95 05/01/23 23:00 58 L 11 L 138/80 97 05/01/23 22:00 52 L 16 138/80 95 05/01/23 21:30 50 L 16 122/82 95 05/01/23 21:00 51 L 16 120/105 94 L 05/01/23 20:00 53 L 17 153/90 94 L 05/01/23 19:35 97.7 F 05/01/23 18:46 96 05/01/23 18:05 98.1 F 53 L 16 109/97 93 L 05/01/23 16:20 57 L 18 125/74 95 05/01/23 14:58 97.5 F L 56 L 20 117/75 97 GENERAL: Early female, well-appearing, well-nourished and in no acute distress. HEAD: Atraumatic, normocephalic. EYES: Pupils equal round and reactive to light, extraocular movements intact, sclera anicteric, conjunctiva are normal. ENT:nares patent, oropharynx clear without exudates. Moist mucous membranes. NECK: Normal range of motion, supple without lymphadenopathy or JVD, no thyrome christal LUNGS: Breath sounds clear to auscultation bilaterally and equal. No wheezes rales or rhonchi. HEART: Regular rate and rhythm without murmurs, rubs or gallops.S1S2 Normal ABDOMEN: Soft, nontender, normoactive bowel sounds. No guarding, no rebound. No masses appreciated. EXTREMITIES: Normal range of motion, no pitting or edema. No clubbing or cyanosis. NEUROLOGICAL: Cranial nerves II through XII grossly intact. Normal speech, normal gait. PSYCH: Normal mood, normal affect. SKIN: Warm, Dry, normal turgor, no rashes or lesions noted. Results CBC & Chem 7: 05/02/23 10:31 05/02/23 10:31 Labs: Abnormal Lab Results - Last 24 Hours (Table) 05/01/23 05/01/23 05/02/23 Range/Units 15:08 15:08 10:31 APTT 21.8 L (22.0-30.0) sec BUN 21 H (7-17) mg/dL Glucose 117 H 107 H (74-99) mg/dL Total Protein 6.0 L 5.9 L (6.3-8.2) g/dL Chest x-ray: report reviewed Thrombosis Risk Factor Assmnt - DVT/VTE Prophylaxis DVT/VTE Prophylaxis: Pharmacologic Prophylaxis ordered (Continue Eliquis) Assessment and Plan (1) Syncope Current Visit: Yes Status: Acute Code(s): R55 - SYNCOPE AND COLLAPSE SNOMED Code(s): 630010827 (2) long term care pharmacist current use of anticoagulant therapy Current Visit: Yes Status: Acute Code(s): Z79.01 - CORRECTION (CURRENT) USE OF ANTICOAGULANTS SNOMED Code(s): 169377461 (3) Gastro-esophageal reflux disease without esophagitis Current Visit: Yes Status: Acute Code(s): K21.9 - GASTRO-ESOPHAGEAL REFLUX DISEASE WITHOUT ESOPHAGITIS SNOMED Code(s): 150624813 (4) Dehydration Current Visit: No Status: Acute Code(s): E86.0 - DEHYDRATION SNOMED Code(s): 35373477 (5) Pacemaker Current Visit: No Status: Acute Code(s): Z95.0 - PRESENCE OF CARDIAC PACEMAKER SNOMED Code(s): 397451872 (6) Sick sinus syndrome Current Visit: No Status: Acute Code(s): I49.5 - SICK SINUS SYNDROME SNOMED Code(s): 33837935 (7) Vertigo Current Visit: No Status: Acute Code(s): R42 - DIZZINESS AND GIDDINESS SNOMED Code(s): 054449674 (8) Hyperlipidemia Current Visit: No Status: Chronic Code(s): E78.5 - HYPERLIPIDEMIA, UNSPECIFIED SNOMED Code(s): 93377022 (9) Hypertension Current Visit: No Status: Chronic Code(s): I10 - ESSENTIAL (PRIMARY) HYPERTENSION SNOMED Code(s): 90872645 Plan: Will consult cardiology, continue to monitor on telemetry, wait on her pacemaker interrogation, continue IV fluids, continue her current care, possibly discharge later today after orthostatic blood pressure checks and or other testing being performed.
--- NOTE | 2023-05-02 12:21 | P.DS ---
Providers Date of admission: 05/01/23 17:49 Expected date of discharge: 05/02/23 Attending physician: Chacorta Romero Consults: 05/01/23 17:49 Consult Physician Routine Consulting Provider: Albert Wallis Consult Reason/Comments: syncope Do you want consulting provider notified?: Yes Primary care physician: Chacorta Romero - Discharge Diagnosis(es) (1) Syncope Current Visit: Yes Status: Acute (2) long-term current use of anticoagulant therapy Current Visit: Yes Status: Acute (3) Gastro-esophageal reflux disease without esophagitis Current Visit: Yes Status: Acute (4) Dehydration Current Visit: No Status: Acute (5) Pacemaker Current Visit: No Status: Acute (6) Sick sinus syndrome Current Visit: No Status: Acute (7) Vertigo Current Visit: No Status: Acute (8) Hyperlipidemia Current Visit: No Status: Chronic (9) Hypertension Current Visit: No Status: Chronic Hospital Course: This is a 77-year-old female well-known to me. She has extensive medical history of hypertension hyperlipidemia previous syncope, sick sinus syndrome, history of pacer, and OAB. She reports being at a yesterday. She became very tired. Her family says she lost consciousness for a few moments and was brought to the emergency room. She reports being under normal state health before this. Her workup showed some mild dehydration. But otherwise was normal. She spent the night in the emergency room. She feels back to her baseline at this time. She denies any chest pain pressure shortness of breath nausea or vomiting. Patient has a previous history of syncope in the past and has a pacer. Cardiology clears her and her pacemaker interrogation is normal. Her orthostatic blood pressures are normal. She will be discharged home today. Plan - Discharge Summary New Discharge Prescriptions: Continue Tolterodine Tartrate [Detrol LA] 4 mg PO DAILY Esomeprazole Magnesium [NexIUM] 40 mg PO DAILY atenoloL [Tenormin] 50 mg PO DAILY #90 tab Rosuvastatin [Crestor] 20 mg PO DAILY atenoloL [Tenormin] 25 mg PO HS Apixaban [Eliquis] 5 mg PO BID Losartan Potassium 100 mg PO DAILY Flecainide [Tambocor] 50 mg PO Q12HR Discharge Medication List Tolterodine Tartrate [Detrol LA] 4 mg PO DAILY 01/13/16 [History] Esomeprazole Magnesium [NexIUM] 40 mg PO DAILY 06/01/18 [History] atenoloL [Tenormin] 50 mg PO DAILY #90 tab 05/09/19 [Rx] Apixaban [Eliquis] 5 mg PO BID 05/25/22 [History] Losartan Potassium 100 mg PO DAILY 06/16/22 [History] Rosuvastatin [Crestor] 20 mg PO DAILY 11/15/22 [History] Flecainide [Tambocor] 50 mg PO Q12HR 05/01/23 [History] atenoloL [Tenormin] 25 mg PO HS 05/01/23 [History] Follow up Appointment(s)/Referral(s): Chacorta Romero MD [Primary Care Provider] - 1-2 days Subhash Glover MD [STAFF PHYSICIAN] - 3 Days Discharge Disposition: HOME SELF-CARE Plan of Treatment: outPatient 2D echo
[2023-05-02 14:56] VITALS: BP 135/78; PULSE 56; RESP 18; TEMP 98.8
== END 2023-05-02 14:42 | disposition home or self-care (01) ==
LOC: EC 14:52 → 6NMEDSUR 17:49
PROVIDERS: ADMIT Family Medicine; ATTEND Family Medicine
DX: R55 Syncope and collapse (principal); E86.0 Dehydration; E78.5 Hyperlipidemia, unspecified; I10 Essential (primary) hypertension; K21.9 Gastro-esophageal reflux disease without esophagitis; G43.909 Migraine, unspecified, not intractable, without status migrainosus; I49.5 Sick sinus syndrome; N32.81 Overactive bladder; Z79.01 Long term (current) use of anticoagulants; Z79.899 Other long term (current) drug therapy; Z91.040 Latex allergy status; Z88.0 Allergy status to penicillin; Z95.0 Presence of cardiac pacemaker; Z98.42 Cataract extraction status, left eye; Z98.51 Tubal ligation status; Z90.49 Acquired absence of other specified parts of digestive tract; Z98.890 Other specified postprocedural states; Z82.49 Family history of ischemic heart disease and other diseases of the circulatory system; Z80.3 Family history of malignant neoplasm of breast; Z80.0 Family history of malignant neoplasm of digestive organs
CPT/HCPCS: 96360; 96361 ×2; 99285; 36415; 93005; 80053 ×2; 83735; 84484; 85025 ×2; 85610; 85730; 71046; 70450; G0378 ×2

== ENCOUNTER 2023-07-27 15:42 | Emergency (ER) | payer MEDICARE, BC ==
[2023-07-27 16:30] VITALS: TEMP 99.7
[2023-07-27] MEDS: SODIUM CHLORIDE 0.9% 500 ML 500 ML IV STA (17:48)
[2023-07-27] MEDS: SODIUM CHLORIDE 0.9% 1,000 ML IV STA (17:48)
[2023-07-27] MEDS: MORPHINE SULFATE 2 MG/ML SYRINGE IVP STA (17:48)
[2023-07-27] MEDS: ONDANSETRON 4 MG/2 ML VIAL IVP STA (17:49)
[2023-07-27 18:04] LABS: ALT 24 U/L (4-34); AST 27 U/L (14-36); African American GFR (CKD) >90 (>60 ml/min/1.73 sqM); Albumin 3.5 g/dL (3.5-5.0); Alkaline Phosphatase 93 U/L (38-126); Anion Gap 6 mmol/L; Blood Urea Nitrogen 18 mg/dL (7-17); Calcium 8.8 mg/dL (8.4-10.2); Carbon Dioxide 27 mmol/L (22-30); Chloride 106 mmol/L (98-107); Glucose 100 mg/dL (74-99); Lipase 55 U/L (23-300); Non-African American GFR(CKD) 81 (>60 ml/min/1.73 sqM); Potassium 4.3 mmol/L (3.5-5.1); Sodium 139 mmol/L (137-145); Total Bilirubin 0.5 mg/dL (0.2-1.3); Total Protein 5.7 g/dL (6.3-8.2)
[2023-07-27 18:06] LABS: Basophils % (A) 0 %; Eosinophils # (A) 0.1 k/uL (0-0.7); Eosinophils % (A) 2 %; HCT 41.7 % (34.0-46.0); HGB 13.8 gm/dL (11.4-16.0); Lymphocytes # (A) 0.5 k/uL (1.0-4.8); Lymphocytes % (A) 7 %; MCH 29.4 pg (25.0-35.0); MCHC 33.1 g/dL (31.0-37.0); MCV 88.7 fL (80.0-100.0); Mean Platelet Volume 8.1; Monocytes # (A) 0.3 k/uL (0-1.0); Monocytes % (A) 5 %; Neutrophils # (A) 5.8 k/uL (1.3-7.7); Neutrophils % (A) 85 %; Platelet Count 195 k/uL (150-450); RDW 13.4 % (11.5-15.5); WBC 6.8 k/uL (3.8-10.6)
[2023-07-27 18:11] LABS: INR 0.9 (<1.2); Partial Thromboplastin Time 22.3 sec (22.0-30.0); Prothrombin Time 10.5 sec (10.0-12.5)
[2023-07-27 18:20] LABS: Appearance,Urine Cloudy (Clear); Bacteria,Urine Moderate /hpf; Bilirubin,Urine Negative (Negative); Blood,Urine Negative (Negative); Color,Urine Light Yellow; Glucose,Urine (UA) Negative (Negative); Ketones,Urine Negative (Negative); Leukocyte Esterase,Urine Large (Negative); Mucus,Urine Few /hpf; Nitrite,Urine Negative (Negative); PH, Urine 7.5 (5.0-8.0); Protein,Urine Negative (Negative); RBC,Urine 1 /hpf (0-5); Specific Gravity,Urine 1.018 (1.001-1.035); Squamous Epithelial Cell,Urine 19 /hpf (0-4); Urobilinogen,Urine <2.0 mg/dL (<2.0); WBC,Urine 13 /hpf (0-5)
--- NOTE | 2023-07-27 18:22 | ED ---
Abdominal Pain HPI - General Chief Complaint: Abdominal Pain Stated Complaint: NVD Time Seen by Provider: 07/27/23 16:01 Source: EMS Mode of arrival: EMS Limitations: no limitations - History of Present Illness Initial Comments: 78-year-old female presents with complaint of some abdominal pain. It is worse in the bilateral lower abdomen. She also has had some nausea and vomiting. Her nausea and vomiting initially started approximately 1 week ago and has been intermittent. She denies any fevers or chills. She denies any diarrhea or constipation. There is no urinary symptoms. She apparently felt somewhat presyncopal earlier today as well. No other complaints or modifying factors. - Related Data Home Medications Medication Instructions Recorded Confirmed Tolterodine Tartrate [Detrol LA] 4 mg PO DAILY 01/13/16 05/01/23 Esomeprazole Magnesium [NexIUM] 40 mg PO DAILY 06/01/18 05/01/23 Apixaban [Eliquis] 5 mg PO BID 05/25/22 05/01/23 Losartan Potassium 100 mg PO DAILY 06/16/22 05/01/23 Rosuvastatin [Crestor] 20 mg PO DAILY 11/15/22 05/01/23 Flecainide [Tambocor] 50 mg PO Q12HR 05/01/23 05/01/23 atenoloL [Tenormin] 25 mg PO HS 05/01/23 05/01/23 Previous Rx's Medication Instructions Recorded atenoloL [Tenormin] 50 mg PO DAILY #90 tab 05/09/19 Dicyclomine [Bentyl] 20 mg PO QID PRN #20 tablet 07/27/23 Ondansetron Odt [Zofran Odt] 8 mg PO Q8HR PRN #12 tab 07/27/23 Sulfamethox-Tmp 800-160Mg [Bactrim 1 tab PO Q12HR #14 tab 07/27/23 DS 800-160 mg] Allergies Allergy/AdvReac Type Severity Reaction Status Date / Time latex Allergy Rash/Hives Verified 07/27/23 17:16 Penicillins Allergy Rash/Hives Verified 07/27/23 17:16 Review of Systems ROS Statement: Those systems with pertinent positive or pertinent negative responses have been documented in the HPI. ROS Other: All systems not noted in ROS Statement are negative. Past Medical History Past Medical History: GERD/Reflux, Hyperlipidemia, Hypertension, Syncope Additional Past Medical History / Comment(s): See Dr Glover H&P, cystocele with coil, hx migraines, hx ulcer, urinary leakage, Syncope feb- pt sent home with a holter monitor was found to be dolly- dual pacer placed 05/08/2019 History of Any Multi-Drug Resistant Organisms: None Reported Past Surgical History: Bladder Surgery, Cholecystectomy, Hernia Repair, Orthopedic Surgery, Pacemaker, Tonsillectomy, Tubal Ligation Additional Past Surgical History / Comment(s): R eye surgery FOR RETINAL TEAR , Rt carpal tunnel release, BLADDER COIL, cataract removed left eye Past Anesthesia/Blood Transfusion Reactions: Motion Sickness, Postoperative Nausea & Vomiting (PONV) Additional Past Anesthesia/Blood Transfusion Reaction / Comment(s): . Type of Cardiac Device: Permanent Pacemaker Device Placement Date:: 05/08/2019 Past Psychological History: No Psychological Hx Reported Smoking Status: Never smoker Past Alcohol Use History: None Reported Past Drug Use History: None Reported - Past Family History Brother(s) Family Medical History: Cancer Mother Family Medical History: Cancer Additional Family Medical History / Comment(s): MOTHER RECENTLY AT AGE 86YRS from CAD. HER CANCERS WERE OF THE BREAST AND THE BOWEL. General Exam - General Exam Comments Initial Comments: GENERAL: The patient is well nourished and well hydrated. VITAL SIGNS: Heart rate, blood pressure, respiratory rate reviewed as recorded in nurse's notes. EYES: Pupils are round and reactive. Extraocular movements are intact. No conjunctival / lid redness or swelling. ENT: No external evidence of injury, swelling, or ecchymosis. Airway is patent. Throat is clear. NECK: Nontender. No swelling or evidence of injury. No subcutaneous emphysema. Trachea is midline. No thyroid mass. HEART: Regular rate and rhythm. Good peripheral pulses. LUNGS/CHEST: Breath sounds clear and equal bilaterally. No rales, rhonchi, or wheezes. No ecchymosis, subcutaneous emphysema, or tenderness. ABDOMEN: Abdomen soft with mild tenderness more so in the bilateral lower abdomen. No palpable masses or organomegaly. No peritoneal signs. No abdominal wall swelling or ecchymosis. EXTREMITIES: No extremity tenderness. Normal muscle tone and function. No thoracolumbar tenderness. NEUROLOGIC: Sensation is grossly intact. Cranial nerve exam reveals face is symmetrical, tongue is midline, speech is clear. SKIN: No abrasions or ecchymosis is noted. No induration or masses noted. PSYCHIATRIC: Alert and oriented. Appropriate behavior and judgment. Limitations: no limitations Course Vital Signs 07/27/23 07/27/23 07/27/23 15:50 17:50 19:46 Temperature 99.7 F H Pulse Rate 63 62 61 Respiratory 18 18 17 Rate Blood Pressure 132/73 117/78 124/72 O2 Sat by Pulse 94 L 94 L 96 Oximetry Medical Decision Making - Medical Decision Making The patient was seen and examined. All diagnostics are reviewed. The EKG shows a normal sinus rhythm at a rate of 60. There is some T wave inversions in the V1 through V4 leads as well as the inferior leads. There is no ST elevation noted per my interpretation. Intervals are normal. IV is established and patient is hydrated. Patient also received some Zofran and morphine intravenously. Patient is feeling somewhat improved on recheck. The CT scan of the abdomen pelvis does show evidence of diverticulosis but no diverticulitis per my interpretation. The radiologist also notes some fluid-filled loops of bowel. Patient relates that she has had 2 loose bowel movements since she has been in the room. The laboratory does not show any acute significant abnormalities. The possibility of an early gastroenteritis certainly is possib le. Urinalysis does show evidence of urinary tract infection as well. She appears well and it is felt as though she is stable for discharge home. Return parameters are discussed. She will be prescribed some Bentyl, Zofran, and Bactrim. Close follow-up with primary care is recommended. Was pt. sent in by a medical professional or institution (, PA, DIRECTOR TEEN POST, urgent care, hospital, or long term...) When possible be specific @ -No Did you speak to anyone other than the patient for history (EMS, parent, family, police, friend...)? What history was obtained from this source @ -Patient's daughter are present and also helps with history. Did you review nursing and triage notes (agree or disagree)? Why? @ -I reviewed and agree with nursing and triage notes Were old charts reviewed (outside hosp., previous admission, EMS record, old EKG, old radiological studies, urgent care reports/EKG's, long term records)? Report findings @ -Old charts were reviewed and additional past medical history is obtained. Differential Diagnosis (chest pain, altered mental status, abdominal pain women, abdominal pain men, vaginal bleeding, weakness, fever, dyspnea, syncope, headache, dizziness, GI bleed, back pain, seizure, CVA, palpatations, mental health, musculoskeletal)? @ -Nausea and vomiting, diarrhea, abdominal pain, gastroenteritis, urinary tract infection, diverticulosis, diverticulitis. EKG interpreted by me (3pts min.). @ -As above X-rays interpreted by me (1pt min.). @ -None done CT interpreted by me (1pt min.). @ -As above U/S interpreted by me (1pt. min.). @ -None done What testing was considered but not performed or refused? (CT, X-rays, U/S, labs)? Why? @ -None What meds were considered but not given or refused? Why? @ -None Did you discuss the management of the patient with other professionals (professionals i.e. , PA, DIRECTOR TEEN POST, lab, RT, psych nurse, social media designer, fur plucker, teacher, textile technical officer, housing case manager)? Give summary @ -No Was smoking cessation discussed for >3mins.? @ -No Was critical care preformed (if so, how long)? @ -No Were there social determinants of health that impacted care today? How? (Homelessness, low income, unemployed, alcoholism, drug addiction, transportation, low edu. Level, literacy, decrease access to med. care, custodial, rehab)? @ -No Was there de-escalation of care discussed even if they declined (Discuss DNR or withdrawal of care, Hospice)? DNR status @ -No What co-morbidities impacted this encounter? (DM, HTN, Smoking, COPD, CAD, Cancer, CVA, ARF, Chemo, Hep., AIDS, mental health diagnosis, sleep apnea, morbid obesity)? @ -None Was patient admitted / discharged? Hospital course, mention meds given and route, prescriptions, significant lab abnormalities, going to OR and other pertinent info. @ -Patient was discharged home, please see above. Undiagnosed new problem with uncertain prognosis? @ -No Drug Therapy requiring intensive monitoring for toxicity (Heparin, Nitro, Insulin, Cardizem)? @ -No Were any procedures done? @ -No Diagnosis/symptom? @ -Nausea and vomiting, presyncope, diarrhea, possible gastroenteritis, abdominal pain. Acute, or Chronic, or Acute on Chronic? @ -Acute Uncomplicated (without systemic symptoms) or Complicated (systemic symptoms)? @ -Uncomplicated Side effects of treatment? @ -No Exacerbation, Progression, or Severe Exacerbation? @ -No Poses a threat to life or bodily function? How? (Chest pain, USA, LA, pneumonia, PE, COPD, DKA, ARF, appy, cholecystitis, CVA, Diverticulitis, Homicidal, Suicidal, threat to staff... and all critical care pts) @ -No - Lab Data Result diagrams: 07/27/23 17:03 07/27/23 17:03 Lab Results 07/27/23 07/27/23 07/27/23 Range/Units 17: 17: 17:03 WBC 6.8 (3.8-10.6) k/uL RBC 4.70 (3.80-5.40) m/uL Hgb 13.8 (11.4-16.0) gm/dL Hct 41.7 (34.0-46.0) % MCV 88.7 (80.0-100.0) fL MCH 29.4 (25.0-35.0) pg MCHC 33.1 (31.0-37.0) g/dL RDW 13.4 (11.5-15.5) % Plt Count 195 (150-450) k/uL MPV 8.1 Neutrophils % 85 % Lymphocytes % 7 % Monocytes % 5 % Eosinophils % 2 % Basophils % 0 % Neutrophils # 5.8 (1.3-7.7) k/uL Lymphocytes # 0.5 L (1.0-4.8) k/uL Monocytes # 0.3 (0-1.0) k/uL Eosinophils # 0.1 (0-0.7) k/uL Basophils # 0.0 (0-0.2) k/uL PT 10.5 (10.0-12.5) sec INR 0.9 (<1.2) APTT 22.3 (22.0-30.0) sec Sodium (137-145) mmol/L Potassium (3.5-5.1) mmol/L Chloride (98-107) mmol/L Carbon Dioxide (22-30) mmol/L Anion Gap mmol/L BUN (7-17) mg/dL Creatinine (0.52-1.04) mg/dL Est GFR (CKD-EPI)AfAm (>60 ml/min/1.73 sqM) Est GFR (CKD-EPI)NonAf (>60 ml/min/1.73 sqM) Glucose (74-99) mg/dL Plasma Lactic Acid Edgar (0.7-2.0) mmol/L Calcium (8.4-10.2) mg/dL Total Bilirubin (0.2-1.3) mg/dL AST (14-36) U/L ALT (4-34) U/L Alkaline Phosphatase (38-126) U/L Total Protein (6.3-8.2) g/dL Albumin (3.5-5.0) g/dL Lipase (23-300) U/L Urine Color Light Yellow Urine Appearance Cloudy H (Clear) Urine pH 7.5 (5.0-8.0) Ur Specific [place] 1.018 (1.001-1.035) Urine Protein Negative (Negative) Urine Glucose (UA) Negative (Negative) Urine Ketones Negative (Negative) Urine Blood Negative (Negative) Urine Nitrite Negative (Negative) Urine Bilirubin Negative (Negative) Urine Urobilinogen <2.0 (<2.0) mg/dL Ur Leukocyte Esterase Large H (Negative) Urine RBC 1 (0-5) /hpf Urine WBC 13 H (0-5) /hpf Ur Squamous Epith Cells 19 H (0-4) /hpf Urine Bacteria Moderate H (None) /hpf Urine Mucus Few H (None) /hpf 07/27/23 07/27/23 Range/Units 17:03 17:05 WBC (3.8-10.6) k/uL RBC (3.80-5.40) m/uL Hgb (11.4-16.0) gm/dL Hct (34.0-46.0) % MCV (80.0-100.0) fL MCH (25.0-35.0) pg MCHC (31.0-37.0) g/dL RDW (11.5-15.5) % Plt Count (150-450) k/uL MPV Neutrophils % % Lymphocytes % % Monocytes % % Eosinophils % % Basophils % % Neutrophils # (1.3-7.7) k/uL Lymphocytes # (1.0-4.8) k/uL Monocytes # (0-1.0) k/uL Eosinophils # (0-0.7) k/uL Basophils # (0-0.2) k/uL PT (10.0-12.5) sec INR (<1.2) APTT (22.0-30.0) sec Sodium 139 (137-145) mmol/L Potassium 4.3 (3.5-5.1) mmol/L Chloride 106 (98-107) mmol/L Carbon Dioxide 27 (22-30) mmol/L Anion Gap 6 mmol/L BUN 18 H (7-17) mg/dL Creatinine 0.72 (0.52-1.04) mg/dL Est GFR (CKD-EPI)AfAm >90 (>60 ml/min/1.73 sqM) Est GFR (CKD-EPI)NonAf 81 (>60 ml/min/1.73 sqM) Glucose 100 H (74-99) mg/dL Plasma Lactic Acid Edgar 0.8 (0.7-2.0) mmol/L Calcium 8.8 (8.4-10.2) mg/dL Total Bilirubin 0.5 (0.2-1.3) mg/dL AST 27 (14-36) U/L ALT 24 (4-34) U/L Alkaline Phosphatase 93 (38-126) U/L Total Protein 5.7 L (6.3-8.2) g/dL Albumin 3.5 (3.5-5.0) g/dL Lipase 55 (23-300) U/L Urine Color Urine Appearance (Clear) Urine pH (5.0-8.0) Ur Specific [place] (1.001-1.035) Urine Protein (Negative) Urine Glucose (UA) (Negative) Urine Ketones (Negative) Urine Blood (Negative) Urine Nitrite (Negative) Urine Bilirubin (Negative) Urine Urobilinogen (<2.0) mg/dL Ur Leukocyte Esterase (Negative) Urine RBC (0-5) /hpf Urine WBC (0-5) /hpf Ur Squamous Epith Cells (0-4) /hpf Urine Bacteria (None) /hpf Urine Mucus (None) /hpf Disposition Clinical Impression: Acute abdominal pain, Nausea and vomiting, Near syncope, Diarrhea, Gastroenteritis, Urinary tract infection Disposition: HOME SELF-CARE Condition: Good Prescriptions: Sulfamethox-Tmp 800-160Mg [Bactrim DS 800-160 mg] 1 tab PO Q12HR #14 tab Dicyclomine [Bentyl] 20 mg PO QID PRN #20 tablet PRN Reason: Pain Ondansetron Odt [Zofran Odt] 8 mg PO Q8HR PRN #12 tab PRN Reason: Nausea Is patient prescribed a controlled substance at d/c from ED?: No Referrals: Chacorta Romero MD [Primary Care Provider] - 1-2 days Time of Disposition: 21:09
[2023-07-27 20:01] VITALS: RESP 17
--- NOTE | 2023-07-27 20:39 | CT ---
EXAMINATION TYPE: CT abdomen pelvis w con CT DLP: 660.4 mGycm, Automated exposure control for dose reduction was used. DATE OF EXAM: 07/27/2023 6:50 PM COMPARISON: None. CLINICAL INDICATION:Female, 78 years old with history of abdominal pain, acute, nonlocalized; GAS/SATINDER N TECHNIQUE: Axial CT of the abdomen and pelvis. Sagittal and coronal reformats were created on a [employer] workstation. Contrast used:100 mL of Isovue 300 with IV Contrast, (none if empty) Oral contrast used: without Oral Contrast (none if empty) FINDINGS: LOWER CHEST: Mild bibasilar scarring and/or subsegmental atelectasis. The heart is mildly enlarged. D istal ends of pacemaker leads are seen extending to the RA and RV. Moderate sized hiatal hernia. ABDOMEN LIVER: Unremarkable GALLBLADDER AND BILE DUCTS: Gallbladder is surgically absent with mild biliary dilatation, likely pos tcholecystectomy change and/or physiologic. No evidence of choledocholithiasis shown. PANCREAS: Unremarkable. SPLEEN: Unremarkable. ADRENAL GLANDS: Unremarkable left adrenal. Right adrenal heterogeneous mass measures 4.3 x 3.4 cm axi ally and extends 4.4 cm craniocaudally. There are areas of both higher and lower attenuation within; average attenuation 58 Hounsfield units, similar on delays, considered indeterminate. KIDNEYS AND URETERS: Kidneys concentrate and excrete contrast symmetrically. No visible renal calculu s. Bilateral extrarenal pelves are patent, without definite hydroureter. Multiple pelvic calcificatio ns appear to be phleboliths. PELVIS BLADDER: Unremarkable REPRODUCTIVE: Uterus not well assessed, appears present and grossly unremarkable. No adnexal mass guerra ggested. A pessary is in place. ABDOMEN & PELVIS STOMACH AND BOWEL: Stomach is nondistended. Duodenal sweep is patent. Farther distally, there is prog ressive fluid-filled dilatation of small bowel up to about 2.5 cm diameter, without clear evidence of a transition point. Appendix is normal in appearance. Some fluid contents in the right colon, with m ore formed stool distally. Multiple scattered colonic diverticula, mostly in the sigmoid, without jorge ar evidence of diverticulitis. PERITONEUM/RETROPERITONEUM: No evidence of pneumoperitoneum or free fluid. VASCULATURE: Moderate atherosclerotic calcifications are present throughout the abdominal aorta and i ts branches. No evidence of aortic aneurysm. Portal veins are enhancing. Splenic vein and SMV appea r patent. LYMPH NODES: No enlarged nodes by CT size criteria. SOFT TISSUE/ABDOMINAL WALL: Unremarkable MUSCULOSKELETAL: No acute osseous abnormalities. Mild/moderate disc degeneration changes are present throughout the thoracolumbar spine. IMPRESSION: 1. Multiple colonic diverticula, primarily sigmoid, without evidence of diverticulitis at this time. 2. Mildly prominent, fluid-filled small bowel loops, likely considerations include ileus and enterit is. 3. No free fluid or free air. Normal appendix.
[2023-07-27 22:24] VITALS: BP 127/84; PULSE 64
== END 2023-07-27 22:21 | disposition home or self-care (01) ==
LOC: EC 15:42
DX: K52.9 Noninfective gastroenteritis and colitis, unspecified (principal); N39.0 Urinary tract infection, site not specified; K57.30 Diverticulosis of large intestine without perforation or abscess without bleeding; R55 Syncope and collapse; Z88.0 Allergy status to penicillin; Z91.040 Latex allergy status
CPT/HCPCS: 36415; 93005; 80053; 83605; 83690; 85025; 85610; 85730; 81001; 87086; 74177; 99285; 96374; 96361 ×5; J2405; Q9967

== ENCOUNTER → 2023-09-02 | Outpatient (CLI) | payer MEDICARE, BC ==
[2023-09-02 07:27] LABS: African American GFR (CKD) >90 (>60 ml/min/1.73 sqM); Blood Urea Nitrogen 15 mg/dL (7-17); Non-African American GFR(CKD) 81 (>60 ml/min/1.73 sqM)
--- NOTE | 2023-09-02 10:27 | CT ---
EXAMINATION TYPE: CT abdomen wo/w con CT DLP: 890 mGycm, Automated exposure control for dose reduction was used. DATE OF EXAM: 09/02/2023 9:44 AM COMPARISON: CT abdomen pelvis most recent from 07/27/2023, 03/24/2021 and 03/06/2014. CLINICAL INDICATION:Female, 78 years old with history of E27.8 ADRENAL MASS; Rt adrenal mass. IV cont rast only per order. TECHNIQUE: Axial CT abdomen wo/w con;Sagittal and coronal reformats were created on a separate works tation. Contrast used:100 mL of Isovue 300 with IV Contrast, (none if empty) Oral contrast used: without Oral Contrast (none if empty) FINDINGS: LOWER CHEST: Conduction leads partially visualized. ABDOMEN LIVER: Unremarkable GALLBLADDER AND BILE DUCTS: Gallbladder surgically absent. PANCREAS: Unremarkable. SPLEEN: Unremarkable. ADRENAL GLANDS: Large right adrenal mass measuring 45 x 31 mm. This was previously 35 x 20 mm on 03/24 and 16 x 18 mm on 03/06/2014. Noncontrast Hounsfield units of 38.65. Postcontrast Hounsfield units with heterogenous enhancement 55 15 minute delayed contrast enhancement of 56. Absolute Washout:-5.9% Absolute washout less than 60% is indeterminate. Relative Washout:-1.8% Relative washout less than 40% is indeterminate. KIDNEYS AND URETERS: No evidence of hydronephrosis or renal calculus. The ureters are unremarkable. STOMACH AND BOWEL: No evidence of bowel obstruction. Moderate hiatal hernia. PERITONEUM/RETROPERITONEUM: No evidence of pneumoperitoneum or free fluid. VASCULATURE: Mild atherosclerotic calcifications are present throughout the abdominal aorta and its b ranches. No evidence of aortic aneurysm. MUSCULOSKELETAL: No acute osseous abnormalities LYMPH NODES: No gross evidence for lymphadenopathy. SOFT TISSUE/ABDOMINAL WALL: Unremarkable IMPRESSION: 1. Indeterminate right adrenal nodule by washout characteristics with heterogenous enhancement. Mickey gn versus malignant neoplasm remains in the differential. The lesion has slowly grown in size over e years. Currently 45 x 31 mm and previously 35 x 20 mm on 03/24/2021 and 16 x 8 mm on 03/06/2014. 2. Moderate hiatal hernia.
== END | disposition home or self-care (01) ==
LOC: RADCTMAIN 06:10
PROVIDERS: ATTEND Family Medicine
DX: K44.9 Diaphragmatic hernia without obstruction or gangrene (principal); E27.8 Other specified disorders of adrenal gland
CPT/HCPCS: 82565; 84520; 74170; 36415; Q9967

== ENCOUNTER → 2023-11-09 | Outpatient (CLI) | payer MEDICARE, BC | END | disposition home or self-care (01) | LOC: LABWHC1 06:56 | PROVIDERS: ATTEND Urology | DX: D35.00 Benign neoplasm of unspecified adrenal gland (principal) | CPT/HCPCS: 36415; 82088; 82533; 83835; 84244 ==

== ENCOUNTER → 2024-03-06 | Outpatient (CLI) | payer MEDICARE, BC ==
--- NOTE | 2024-03-07 09:03 | MM ---
Reason for Exam: Screening (asymptomatic). Last mammogram was performed 1 year(s) and 1 month(s) ago. Patient History: Menarche at age 14. First Full-Term at age 19. Postmenopausal. 2007, Core Biopsy on the Right side. Maternal cousin had breast cancer, age 24. Mother had breast cancer, age 75. Risk Values: Mally 5 year model risk: 3.4%. NCI Lifetime model risk: 6.1%. Prior Study Comparison: 12/25/2020 Bilateral Screening Mammogram, [facility]. 01/16/2022 Bilateral MG 3D screening mammo w/cad, [facility]. 01/18/2023 Bilateral MG 3D screening mammo w/cad, [facility]. Tissue Density: The breasts are heterogeneously dense, which may obscure small masses. Findings: Analyzed By CAD. Left chest conduction device limits evaluation of the axilla. Right breast: There is no suspicious group of microcalcifications or new suspicious mass. Left breast: There is no suspicious group of microcalcifications or new suspicious mass. Benign-appearing calcifications left breast. Overall Assessment: Benign, BI-RAD 2 Management: Screening Mammogram of both breasts in [address] [facility] will attempt to contact patient to return for supplemental views and ultrasound if indicated. Patient should continue monthly self-breast exams. A clinical breast exam by your physician is recommended on an annual basis. This exam should not preclude additional follow-up of suspicious palpable abnormalities. Note on Mally scores and lifetime risk: 1. A Mally score greater than 3% is considered moderate risk. If this is the case, consider specialist referral to assess eligibility for a risk reducing agent. 2. If overall lifetime risk for the development of breast cancer is 20% or higher, the patient may qualify for future screening with alternating mammogram and breast MRI. [facility], , 03/07/2024 9:00 AM. Electronically signed and approved by: Zafar Copeland DO
== END | disposition home or self-care (01) ==
LOC: RADMAMWWP 07:21
PROVIDERS: ATTEND Family Medicine
DX: Z12.31 Encounter for screening mammogram for malignant neoplasm of breast (principal); R92.333 Mammographic heterogeneous density, bilateral breasts; Z78.0 Asymptomatic menopausal state; Z80.3 Family history of malignant neoplasm of breast
CPT/HCPCS: 77063; 77067

== ENCOUNTER 2024-04-15 20:46 | Emergency (ER) | payer MEDICARE, BC ==
[2024-04-15 20:50] VITALS: TEMP 97.7
[2024-04-15 20:52] LABS: Glucose,Whole Blood 80 mg/dL (70-110)
--- NOTE | 2024-04-15 20:56 | ED ---
Syncope HPI <Williams Rubio - Last Filed: 04/15/24 23:19> - General Source: patient, EMS, RN notes reviewed, old records reviewed Mode of arrival: EMS Limitations: no limitations - History of Present Illness MD Complaint: loss of consciousness -: minutes(s) Prodromal Symptoms: lightheaded -: second(s) Witnessed: no Injuries Sustained Associated with Event: None Current Symptoms: none <Franck Magaña - Last Filed: 04/19/24 17:29> - General Chief Complaint: Syncope Stated Complaint: Syncope Time Seen by Provider: 04/15/24 20:48 - History of Present Illness Initial Comments: This is a 78-year-old female to the ER for evaluation of a syncopal event syncopal event at the [facility] prior to arrival celebrating sign numbers 21st birthday (Franck Magaña) - Related Data Home Medications Medication Instructions Recorded Confirmed Tolterodine Tartrate [Detrol LA] 4 mg PO DAILY 01/13/16 05/01/23 Esomeprazole Magnesium [NexIUM] 40 mg PO DAILY 06/01/18 05/01/23 Apixaban [Eliquis] 5 mg PO BID 05/25/22 05/01/23 Losartan Potassium 100 mg PO DAILY 06/16/22 05/01/23 Rosuvastatin [Crestor] 20 mg PO DAILY 11/15/22 05/01/23 Flecainide [Tambocor] 50 mg PO Q12HR 05/01/23 05/01/23 atenoloL [Tenormin] 25 mg PO HS 05/01/23 05/01/23 Previous Rx's Medication Instructions Recorded atenoloL [Tenormin] 50 mg PO DAILY #90 tab 05/09/19 Dicyclomine [Bentyl] 20 mg PO QID PRN #20 tablet 07/27/23 Ondansetron Odt [Zofran Odt] 8 mg PO Q8HR PRN #12 tab 07/27/23 Sulfamethox-Tmp 800-160Mg [Bactrim 1 tab PO Q12HR #14 tab 07/27/23 DS 800-160 mg] Allergies Allergy/AdvReac Type Severity Reaction Status Date / Time latex Allergy Rash/Hives Verified 04/15/24 20:50 Penicillins Allergy Rash/Hives Verified 04/15/24 20:50 Review of Systems ROS Other: All systems not noted in ROS Statement are negative. <Williams Rubio - Last Filed: 04/15/24 23:19> ROS Other: All systems not noted in ROS Statement are negative. <Franck Magaña - Last Filed: 04/19/24 17:29> ROS Statement: Those systems with pertinent positive or pertinent negative responses have been documented in the HPI. Past Medical History Past Medical History: GERD/Reflux, Hyperlipidemia, Hypertension, Syncope Additional Past Medical History / Comment(s): See Dr Glover H&P, cystocele with coil, hx migraines, hx ulcer, urinary leakage, Syncope feb- pt sent home with a holter monitor was found to be dolly- dual pacer placed 05/08/2019 History of Any Multi-Drug Resistant Organisms: None Reported Past Surgical History: Bladder Surgery, Cholecystectomy, Hernia Repair, Orthopedic Surgery, Pacemaker, Tonsillectomy, Tubal Ligation Additional Past Surgical History / Comment(s): R eye surgery FOR RETINAL TEAR , Rt carpal tunnel release, BLADDER COIL, cataract removed left eye Past Anesthesia/Blood Transfusion Reactions: Motion Sickness, Postoperative Nausea & Vomiting (PONV) Additional Past Anesthesia/Blood Transfusion Reaction / Comment(s): . Type of Cardiac Device: Permanent Pacemaker Device Placement Date:: 05/08/2019 Past Psychological History: No Psychological Hx Reported Smoking Status: Never smoker Past Alcohol Use History: None Reported Past Drug Use History: None Reported - Past Family History Brother(s) Family Medical History: Cancer Mother Family Medical History: Cancer Additional Family Medical History / Comment(s): MOTHER RECENTLY AT AGE 86YRS from CAD. HER CANCERS WERE OF THE BREAST AND THE BOWEL. <Franck Magaña - Last Filed: 04/19/24 17:29> General Exam Limitations: no limitations General appearance: alert, in no apparent distress Head exam: Present: atraumatic, normocephalic, normal inspection Eye exam: Present: normal appearance, PERRL, EOMI. Absent: scleral icterus, conjunctival injection, periorbital swelling ENT exam: Present: normal exam, mucous membranes moist Neck exam: Present: normal inspection. Absent: tenderness, meningismus, lymphadenopathy Respiratory exam: Present: normal lung sounds bilaterally. Absent: respiratory distress, wheezes, rales, rhonchi, stridor Cardiovascular Exam: Present: regular rate, normal rhythm, normal heart sounds. Absent: systolic murmur, diastolic murmur, rubs, gallop, clicks GI/Abdominal exam: Present: soft, normal bowel sounds. Absent: distended, ten derness, guarding, rebound, rigid Extremities exam: Present: normal inspection, full ROM, normal capillary refill. Absent: tenderness, pedal edema, joint swelling, calf tenderness Back exam: Present: normal inspection Neurological exam: Present: alert, oriented X3, CN II-XII intact Psychiatric exam: Present: normal affect, normal mood Skin exam: Present: warm, dry, intact, normal color. Absent: rash <Franck Magaña - Last Filed: 04/19/24 17:29> Course <Franck Magaña - Last Filed: 04/19/24 17:29> Vital Signs 04/15/24 04/15/24 20:47 23:27 Temperature 97.7 F Pulse Rate 77 79 Respiratory 18 16 Rate Blood Pressure 148/86 110/78 O2 Sat by Pulse 97 98 Oximetry - Reevaluation(s) Reevaluation #1: 04/15/24 21:37 Medical records reviewed (Franck Magaña) Reevaluation #2: Patient symptoms improved here in the ER No recurrent syncope (Franck Magaña) Reevaluation #3: Patient informed of results questions answered (Franck Magaña) Reevaluation #4: Was pt. sent in by a medical professional or institution (, PA, SAMPLE COORDINATOR, urgent care, hospital, or alf...) When possible be specific @ -no Did you speak to anyone other than the patient for history (EMS, parent, family, police, friend...)? What history was obtained from this source @ -no Did you review nursing and triage notes (agree or disagree)? Why? @ -agree Are old charts reviewed (outside hosp., previous admission, EMS record, old EKG, old radiological studies, urgent care reports/EKG's, alf records)? Report findings @ -yes Differential Diagnosis (chest pain, altered mental status, abdominal pain women, abdominal pain men, vaginal bleeding, weakness, fever, dyspnea, syncope, headache, dizziness, GI bleed, back pain, seizure, CVA, palpatations, mental health, musculoskeletal)? @ -prior EKG interpreted by me (3pts min.). @ -yes X-rays interpreted by me (1pt min.). @ -no CT interpreted by me (1pt min.). @ -yes negative for acute disease U/S interpreted by me (1pt. min.). @ -no What testing was considered but not performed or refused? (CT, X-rays, U/S, labs)? Why? @ -none What meds were considered but not given or refused? Why? @ -none Did you discuss the management of the patient with other professionals (professionals i.e. , PA, SAMPLE COORDINATOR, lab, RT, psych nurse, older adult social work specialist, tip scourer, teacher, communications officer, cyanide case hardener)? Give summary @ -no Was smoking cessation discussed for >3mins.? @ -no Was critical care preformed (if so, how long)? @ -no Were there social determinants of health that impacted care today? How? (Homelessness, low income, unemployed, alcoholism, drug addiction, transportation, low edu. Level, literacy, decrease access to med. care, long term, rehab)? @ -none Was there de-escalation of care discussed even if they declined (Discuss DNR or withdrawal of care, Hospice)? DNR status @ -no What co-morbidities impacted this encounter? (DM, HTN, Smoking, COPD, CAD, Cancer, CVA, ARF, Chemo, Hep., AIDS, mental health diagnosis, sleep apnea, morbid obesity)? @ -none Was patient admitted / discharged? Hospital course, mention meds given and route, prescriptions, significant lab abnormalities, going to OR and other pertinent info. @ -78 female to ER with a syncopal event prior to arrival. Patient has no recurrent syncope here in the ER evaluation is negative otherwise patient has multiple admissions for syncope and will be discharged home Discharge Undiagnosed new problem with uncertain prognosis? @ -no Drug Therapy requiring intensive monitoring for toxicity (Heparin, Nitro, Insulin, Cardizem)? @ -no Were any procedures done? @ -no Diagnosis/symptom? @ -Syncope Acute, or Chronic, or Acute on Chronic? @ -Acute Uncomplicated (without systemic symptoms) or Complicated (systemic symptoms)? @ -Complicated Side effects of treatment? @ -no Exacerbation, Progression, or Severe Exacerbation? @ -exacerbation Poses a threat to life or bodily function? How? (Chest pain, USA, MT, pneumonia, PE, COPD, DKA, ARF, appy, cholecystitis, CVA, Diverticulitis, Homicidal, Suicidal, threat to staff... and all critical care pts) @ -yes with syncopal event (Franck Magaña) Reevaluation #5: Differential Syncope: Valvular disease, hypertrophic cardiomyopathy, pulmonary embolism, tamponade, tachycardia, bradycardia, MT, hypovolemia, hemorrhage, dissection, anemia, intracranial hemorrhage, seizure, hypoglycemia, carbon monoxide poisoning, this is not meant to be an all-inclusive list. (Franck Magaña) EKG Findings - EKG Comments: EKG Findings:: EKG sinus 61 IA 178 QRS 97 QTc 426 - EKG Results: EKG: interpreted by ERMD <Franck Magaña - Last Filed: 04/19/24 17:29> Medical Decision Making - Lab Data Result diagrams: 04/15/24 20:52 04/15/24 20:52 <Williams Rubio - Last Filed: 04/15/24 23:19> - Lab Data Result diagrams: 04/15/24 20:52 04/15/24 20:52 - EKG Data -: EKG Interpreted by Ar - Radiology Data Radiology results: report reviewed (CT brain C-spine CTA chest negative for acute disease), image reviewed <Franck Magaña - Last Filed: 04/19/24 17:29> - Lab Data Lab Results 04/15/24 04/15/24 04/15/24 Range/Units 20:49 20:51 20:52 WBC 6.3 (3.8-10.6) k/uL RBC 4.19 (3.80-5.40) m/uL Hgb 12.7 (11.4-16.0) gm/dL Hct 37.2 (34.0-46.0) % MCV 88.8 (80.0-100.0) fL MCH 30.4 (25.0-35.0) pg MCHC 34.2 (31.0-37.0) g/dL RDW 13.3 (11.5-15.5) % Plt Count 194 (150-450) k/uL MPV 7.3 Neutrophils % 55 % Lymphocytes % 34 % Monocytes % 6 % Eosinophils % 3 % Basophils % 1 % Neutrophils # 3.4 (1.3-7.7) k/uL Lymphocytes # 2.1 (1.0-4.8) k/uL Monocytes # 0.4 (0-1.0) k/uL Eosinophils # 0.2 (0-0.7) k/uL Basophils # 0.1 (0-0.2) k/uL PT (10.0-12.5) sec INR (<1.2) APTT (22.0-30.0) sec D-Dimer (<0.60) mg/L FEU Sodium (137-145) mmol/L Potassium (3.5-5.1) mmol/L Chloride (98-107) mmol/L Carbon Dioxide (22-30) mmol/L Anion Gap mmol/L BUN (7-17) mg/dL Creatinine (0.52-1.04) mg/dL Est GFR (CKD-EPI)AfAm (>60 ml/min/1.73 sqM) Est GFR (CKD-EPI)NonAf (>60 ml/min/1.73 sqM) Glucose (74-99) mg/dL POC Glucose (mg/dL) 80 (70-110) mg/dL POC Glu Business Rules Analyst ID [facility] Plasma Lactic Acid Edgar 1.7 (0.7-2.0) mmol/L Calcium (8.4-10.2) mg/dL Phosphorus (2.5-4.5) mg/dL Magnesium (1.6-2.3) mg/dL Total Bilirubin (0.2-1.3) mg/dL AST (14-36) U/L ALT (4-34) U/L Alkaline Phosphatase (38-126) U/L Troponin I (0.000-0.034) ng/mL NT-Pro-B Natriuret Pep pg/mL Total Protein (6.3-8.2) g/dL Albumin (3.5-5.0) g/dL Serum Alcohol mg/dL 04/15/24 04/15/24 04/15/24 Range/Units 20:52 20:52 20:52 WBC (3.8-10.6) k/uL RBC (3.80-5.40) m/uL Hgb (11.4-16.0) gm/dL Hct (34.0-46.0) % MCV (80.0-100.0) fL MCH (25.0-35.0) pg MCHC (31.0-37.0) g/dL RDW (11.5-15.5) % Plt Count (150-450) k/uL MPV Neutrophils % % Lymphocytes % % Monocytes % % Eosinophils % % Basophils % % Neutrophils # (1.3-7.7) k/uL Lymphocytes # (1.0-4.8) k/uL Monocytes # (0-1.0) k/uL Eosinophils # (0-0.7) k/uL Basophils # (0-0.2) k/uL PT 10.8 (10.0-12.5) sec INR 1.0 (<1.2) APTT 22.0 (22.0-30.0) sec D-Dimer 1.01 H (<0.60) mg/L FEU Sodium 139 (137-145) mmol/L Potassium 3.9 (3.5-5.1) mmol/L Chloride 104 (98-107) mmol/L Carbon Dioxide 26 (22-30) mmol/L Anion Gap 9 mmol/L BUN 19 H (7-17) mg/dL Creatinine 0.79 (0.52-1.04) mg/dL Est GFR (CKD-EPI)AfAm 84 (>60 ml/min/1.73 sqM) Est GFR (CKD-EPI)NonAf 73 (>60 ml/min/1.73 sqM) Glucose 75 (74-99) mg/dL POC Glucose (mg/dL) (70-110) mg/dL POC Glu Business Rules Analyst ID Plasma Lactic Acid Edgar (0.7-2.0) mmol/L Calcium 9.2 (8.4-10.2) mg/dL Phosphorus 4.1 (2.5-4.5) mg/dL Magnesium 2.2 (1.6-2.3) mg/dL Total Bilirubin 0.3 (0.2-1.3) mg/dL AST 26 (14-36) U/L ALT 22 (4-34) U/L Alkaline Phosphatase 72 (38-126) U/L Troponin I <0.012 (0.000-0.034) ng/mL NT-Pro-B Natriuret Pep 74 pg/mL Total Protein 6.0 L (6.3-8.2) g/dL Albumin 3.9 (3.5-5.0) g/dL Serum Alcohol <10 mg/dL Disposition <Williams Rubio - Last Filed: 04/15/24 23:19> Is patient prescribed a controlled substance at d/c from ED?: No <Franck Magaña - Last Filed: 04/19/24 17:29> Clinical Impression: Vasovagal syncope, Dizziness Disposition: HOME SELF-CARE Condition: Good Instructions (If sedation given, give patient instructions): Syncope (ED), Dizziness (ED) Additional Instructions: The previously visualized adrenal mass has slightly increased in size, follow-up with your physician to have this addressed. Referrals: Chacorta Romero MD [Primary Care Provider] - 1-2 days
[2024-04-15 21:15] LABS: Basophils # (A) 0.1 k/uL (0-0.2); Basophils % (A) 1 %; Eosinophils # (A) 0.2 k/uL (0-0.7); Eosinophils % (A) 3 %; HCT 37.2 % (34.0-46.0); HGB 12.7 gm/dL (11.4-16.0); Lymphocytes # (A) 2.1 k/uL (1.0-4.8); Lymphocytes % (A) 34 %; MCH 30.4 pg (25.0-35.0); MCHC 34.2 g/dL (31.0-37.0); MCV 88.8 fL (80.0-100.0); Mean Platelet Volume 7.3; Monocytes # (A) 0.4 k/uL (0-1.0); Monocytes % (A) 6 %; Neutrophils # (A) 3.4 k/uL (1.3-7.7); Neutrophils % (A) 55 %; Platelet Count 194 k/uL (150-450); RBC 4.19 m/uL (3.80-5.40); RDW 13.3 % (11.5-15.5); WBC 6.3 k/uL (3.8-10.6)
[2024-04-15 21:34] LABS: ALT 22 U/L (4-34); AST 26 U/L (14-36); African American GFR (CKD) 84 (>60 ml/min/1.73 sqM); Albumin 3.9 g/dL (3.5-5.0); Alcohol <10 mg/dL; Alkaline Phosphatase 72 U/L (38-126); Anion Gap 9 mmol/L; Blood Urea Nitrogen 19 mg/dL (7-17); Calcium 9.2 mg/dL (8.4-10.2); Carbon Dioxide 26 mmol/L (22-30); Chloride 104 mmol/L (98-107); Glucose 75 mg/dL (74-99); Magnesium 2.2 mg/dL (1.6-2.3); Non-African American GFR(CKD) 73 (>60 ml/min/1.73 sqM); Phosphorus 4.1 mg/dL (2.5-4.5); Potassium 3.9 mmol/L (3.5-5.1); Sodium 139 mmol/L (137-145); Total Bilirubin 0.3 mg/dL (0.2-1.3)
[2024-04-15] MEDS: ONDANSETRON 4 MG/2 ML VIAL IVP STA (21:35)
[2024-04-15] MEDS: SODIUM CHLORIDE 0.9% 1,000 ML IV STA (21:36)
[2024-04-15 21:38] LABS: Prothrombin Time 10.8 sec (10.0-12.5)
[2024-04-15 21:42] LABS: NT-Pro-B-Type Natriuretic Pept 74 pg/mL
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
[2024-04-15 23:28] VITALS: BP 110/78; PULSE 79; RESP 16
== END 2024-04-15 23:28 | disposition home or self-care (01) ==
LOC: EC 20:46
DX: R55 Syncope and collapse (principal); R42 Dizziness and giddiness; Z88.0 Allergy status to penicillin; Z91.040 Latex allergy status
CPT/HCPCS: 36415; 93005; 85379; 83880; 80053; 83605; 83735; 84100; 84484; 85025; 85610; 85730; 72125; 70450; 71275; 99285; G0480; Q9967; 80320

== ENCOUNTER → 2024-05-03 | Outpatient (CLI) | payer MEDICARE, BC ==
[2024-05-03 10:26] LABS: African American GFR (CKD) >90 (>60 ml/min/1.73 sqM); Anion Gap 5 mmol/L; Blood Urea Nitrogen 16 mg/dL (7-17); Calcium 9.7 mg/dL (8.4-10.2); Carbon Dioxide 32 mmol/L (22-30); Chloride 105 mmol/L (98-107); Glucose 99 mg/dL (74-99); Non-African American GFR(CKD) 79 (>60 ml/min/1.73 sqM); Potassium 4.1 mmol/L (3.5-5.1); Sodium 142 mmol/L (137-145)
--- NOTE | 2024-05-03 13:48 | CT ---
EXAMINATION TYPE: CT angio head neck DATE OF EXAM: 05/03/2024 12:46 PM COMPARISON: 04/07/2024 CLINICAL INDICATION: Female, 78 years old with history of R55 SYNCOPE AND COLLAPSE E78.00 PURE HYPERC HOLEST, Dizziness, syncope and collapse. TECHNIQUE: CT of the brain is performed utilizing 3 mm thick sections through the posterior fossa and 3 mm thick sections through the remaining calvarium. Study is performed within 24 hours of arrival to the hospital. Contrast used:65 mL of Isovue 370 with IV Contrast, (none if empty) CT DLP: 294.40 mGycm, Automated exposure control for dose reduction was used. FINDINGS: No abnormal hyperdensity is present to suggest an acute intracranial hemorrhage. No mass lesion is evident. No acute infarcts are evident. Subtle hypodensity may be within the left centrum semiovale. Ventricles and sulci are appropriate for the patient age. Paranasal sinuses and mastoid air cells within the [id number] are clear. IMPRESSION: 1. No acute intracranial process. Follow up MRI can be performed as clinically indicated. 2. Chronic appearing deep white matter ischemic type changes EXAMINATION TYPE: CT angio head neck DATE OF EXAM: 05/03/2024 12:46 PM COMPARISON: None. CLINICAL INDICATION: Female, 78 years old with history of R55 SYNCOPE AND COLLAPSE E78.00 PURE HYPERC HOLEST, Dizziness, syncope and collapse. TECHNIQUE: CTA scan is performed with axial images are obtained, coronal and sagittal reformatted luis fernando ges are reviewed. 3-D reconstructed images are created on an independent workstation and reviewed. [facility] [place]. NASCET criteria was used in interpretation of this exam? Contrast used:65 mL of Isovue 370 with IV Contrast, (none if empty) Oral contrast used: (none if empty) CT DLP: 294.40 mGycm, Automated exposure control for dose reduction was used. FINDINGS: Carotid/Vascular Structures: There is a common origin of the left common carotid artery and the right subclavian artery from the innominate. Common carotid arteries bifurcate into internal and external carotid arteries with calcification at t he bifurcations. This is contributing to a 38% narrowing of the proximal left internal carotid artery . Narrowing of the proximal to mid right internal carotid is also 38%. Vertebral arteries are codominant. Internal carotid arteries and vertebral arteries are patent to the skull base. Cervical of [place]: Vertebral basilar system appears normal. Posterior cerebral vasculature is unrema rkable. Internal carotid arteries bifurcate normally into A1 and M1 segments. A2 segments are normal. The anterior communicating artery is patent. The right posterior communicating artery is patent. The left posterior communicating artery is absent. IMPRESSION: 1. No significant flow-limiting stenosis bilateral carotid bifurcations. 2. Normal [place] [facility] [place] [facility], , 05/03/2024 1:46 PM
== END | disposition home or self-care (01) ==
LOC: RADCTMAIN 08:36
PROVIDERS: ATTEND Family Medicine
DX: E78.00 Pure hypercholesterolemia, unspecified (principal); R55 Syncope and collapse; R42 Dizziness and giddiness; I67.82 Cerebral ischemia
CPT/HCPCS: 80048; 70496; 70498; 36415; Q9967

== ENCOUNTER → 2024-10-02 | Outpatient (CLI) | payer MEDICARE, BC ==
[2024-10-02 16:29] LABS: Basophils # (A) 0.04 X 10*3/uL (0.00-0.10); Basophils % (A) 0.6 %; Eosinophils # (A) 0.11 X 10*3/uL (0.04-0.35); Eosinophils % (A) 1.7 %; HCT 42.5 % (37.2-46.3); HGB 13.9 g/dL (12.0-15.0); Lymphocytes # (A) 1.87 X 10*3/uL (0.90-5.00); Lymphocytes % (A) 28.2 %; MCH 29.2 pg (27.0-32.0); MCHC 32.7 g/dL (32.0-37.0); MCV 89.3 FL (80.0-97.0); Mean Platelet Volume 11.1 FL (9.5-12.2); Monocytes # (A) 0.49 X 10*3/uL (0.20-1.00); Monocytes % (A) 7.4 %; NRBC Per 100 WBC 0 X 10*3/uL (0.00-0.01); Neutrophils % (A) 61.9 %; Platelet Count 228 X 10*3/uL (140-440); RBC 4.76 X 10*6/uL (4.10-5.20); RDW 13.7 % (11.5-14.5); WBC 6.62 X 10*3/uL (4.50-10.00)
[2024-10-02 16:36] LABS: LDL Cholesterol,Calculated 113.3 mg/dL (0.0-131.0)
[2024-10-02 16:37] LABS: ALT 25 U/L (8-44); AST 23 U/L (13-35); Albumin 4.3 g/dL (3.8-4.9); Albumin/Globulin Ratio 2.15 Ratio (1.60-3.17); Alkaline Phosphatase 99 U/L (41-126); BUN/Creat Ratio 17.29 Ratio (12.00-20.00); Blood Urea Nitrogen 12.1 mg/dL (9.0-27.0); Calcium 9.3 mg/dL (8.7-10.3); Carbon Dioxide 25.8 mmol/L (21.6-31.8); Chloride 104 mmol/L (96-109); Glucose 93 mg/dL (70-110); Potassium 4.1 mmol/L (3.5-5.5); Sodium 141 mmol/L (135-145); Total Bilirubin 0.5 mg/dL (0.3-1.2); Total Protein 6.3 g/dL (6.2-8.2)
== END | disposition home or self-care (01) ==
LOC: LABWHC1 11:07
PROVIDERS: ATTEND Family Medicine
DX: Z00.00 Encounter for general adult medical examination without abnormal findings (principal); E78.00 Pure hypercholesterolemia, unspecified; I10 Essential (primary) hypertension; I48.0 Paroxysmal atrial fibrillation; Z95.0 Presence of cardiac pacemaker; Z79.01 Long term (current) use of anticoagulants
CPT/HCPCS: 36415; 80053; 80061; 84443; 85025